=== PATIENT | male | born 1965 | race Caucasian/White ===

== ENCOUNTER → 2019-09-06 10:15 | Outpatient (BNVA) | payer MEDICARE, MEDICAID, SELFPAY | PROVIDERS: Family Provider Nurse Practitioner Family; PCP Nurse Practitioner Family; Visit Provider Nurse Practitioner Family | DX: E11.9 Type 2 diabetes mellitus without complications (principal); E78.5 Hyperlipidemia, unspecified; E03.9 Hypothyroidism, unspecified; I25.10 Atherosclerotic heart disease of native coronary artery without angina pectoris; I10 Essential (primary) hypertension; K21.9 Gastro-esophageal reflux disease without esophagitis; J30.89 Other allergic rhinitis; F41.9 Anxiety disorder, unspecified; M19.90 Unspecified osteoarthritis, unspecified site; F32.9 Major depressive disorder, single episode, unspecified; F51.05 Insomnia due to other mental disorder; R25.2 Cramp and spasm; F17.200 Nicotine dependence, unspecified, uncomplicated | CPT/HCPCS: 80053; 80061; 83036; 84443; 85025 ==

== ENCOUNTER → 2020-02-01 11:29 | Outpatient (BNVA) | payer MEDICARE, MEDICAID, SELFPAY | PROVIDERS: Family Provider Nurse Practitioner Family; PCP Nurse Practitioner Family; Visit Provider Nurse Practitioner Family | DX: M19.90 Unspecified osteoarthritis, unspecified site (principal); E11.9 Type 2 diabetes mellitus without complications; I10 Essential (primary) hypertension | CPT/HCPCS: 80053; 80061; 83036; 84443; 85025 ==

== ENCOUNTER → 2020-08-29 09:20 | Outpatient (BNVA) | payer MEDICARE, MEDICAID, SELFPAY | PROVIDERS: Family Provider Nurse Practitioner Family; PCP Nurse Practitioner Family; Visit Provider Nurse Practitioner Family | DX: E11.9 Type 2 diabetes mellitus without complications (principal); E78.5 Hyperlipidemia, unspecified | CPT/HCPCS: 80053; 80061; 83036; 84443; 85025 ==

== ENCOUNTER → 2020-11-30 08:13 | Outpatient (BNVA) | payer MEDICARE, MEDICAID, SELFPAY | PROVIDERS: Family Provider Nurse Practitioner Family; PCP Nurse Practitioner Family; Visit Provider Nurse Practitioner Family | DX: E11.9 Type 2 diabetes mellitus without complications (principal); E03.9 Hypothyroidism, unspecified; E78.5 Hyperlipidemia, unspecified | CPT/HCPCS: 80053; 80061; 83036; 83721; 84443; 85025 ==

== ENCOUNTER → 2021-04-18 11:08 | Outpatient (BNVA) | payer MEDICARE, MEDICAID, SELFPAY | PROVIDERS: Family Provider Nurse Practitioner Family; PCP Nurse Practitioner Family; Visit Provider Nurse Practitioner Family | DX: E03.9 Hypothyroidism, unspecified (principal); E11.9 Type 2 diabetes mellitus without complications; F51.05 Insomnia due to other mental disorder | CPT/HCPCS: 80053; 80061; 83036; 84443; 85025 ==

== ENCOUNTER 2021-04-21 11:56 | Emergency (ER) | payer MEDICARE, MEDICAID, SELFPAY ==
--- NOTE | 2021-04-21 12:44 | XRR_ITS ---
PROCEDURE INFORMATION: Exam: XR Right Shoulder Exam date and time: 04/21/2021 12:44 PM Age: 55 years old Clinical indication: Pain; Right; Prior surgery; Surgery date: 6+ months; Surgery type: Pins in RT. Shoulder; Additional info: Injury TECHNIQUE: Imaging protocol: XR Right shoulder. Views: 2 or more views. COMPARISON: CR Chest 2 views* [id number] 06/12/2017 10:52 AM FINDINGS: Bones/joints: No acute findings. Fixation pins proximal right humeral shaft. Normal appearance of the joint space. Soft tissues: Normal. XR/XR shoulder RT min 2V* [id number] IMPRESSION: No acute findings. Right proximal humeral pins.
[2021-04-21 12:56] VITALS: BP 128/86; PULSE 74; RESP 16; TEMP 36.8; O2SAT 96
--- NOTE | 2021-04-21 13:04 | W.ED.FALL ---
HPI - Fall General: Chief Complaint: Fall Stated Complaint: Injury to Rgt Shoulder from fall Time Seen by Provider: 04/21/21 13:04 Source: patient Mode of arrival: ambulatory Limitations: no limitations History of Present Illness: HPI Narrative: Patient is a nice 55-year-old male who presents to ED today for evaluation of a right shoulder injury that he sustained just prior to arrival after he was trying to load some goats and accidentally tripped over some wiring. He states he landed directly onto his right shoulder. He states he has had previous surgery on the shoulder 45 years ago. Pain is exacerbated with any form of movement. He denies numbness, tingling, loss of sensation to his extremity. He is not complaining of chest pain or abdominal pain. No difficulty breathing or shortness of breath. He denies striking his head or LOC. No neck or back pain. MD complaint: fall Onset (ago): hour(s) Fall from: standing Fall witnessed: no Place fall occurred: home Loss of consciousness: None Prolonged down time: no Symptoms prior to fall: none Context: tripped/slipped Location of injury - extremities: Right: shoulder Severity: moderate Associated symptoms-after fall: Denies abdominal pain, chest pain, confusion, difficulty walking, headache(s), lightheadedness or neck pain Review of Systems Eyes: Denies: change in vision or blurry vision Card: Denies: chest pain, lightheadedness, syncope or pre-syncope Resp: Denies: dyspnea or pain on inspiration GI: Denies: abdominal pain, nausea or vomiting Musc: Reports: joint pain (R shoulder) and limited range of motion (R shoulder); Denies: neck pain, back pain, extremity pain, extremity swelling or joint swelling Skin/Breast: Denies: new lesions Neuro: Denies: headache(s), numbness in extremities, weakness in extremities, sensory changes, lack of coordination, difficulty walking, frequent falls, dizziness, confusion or Slurred speech present PFSH ED PFSH: Medical History Anxiety and depression Atherosclerotic coronary vascular disease COPD (chronic obstructive pulmonary disease) Diabetes mellitus Dyslipidemia Encounter for counseling for care management of patient with chronic conditions and complex health needs using nurse-based model Environmental and seasonal allergies Essential hypertension GERD (gastroesophageal reflux disease) Hypothyroid Insomnia due to mental condition Leg cramps Osteoarthritis, chronic Smoker Social History (System 12/21/20 @ 14:38 by Maddi Sawyer Smoking and tobacco status: current every day smoker cigarettes Packs smoked per day: 3 Second hand smoke exposure: Yes Smoking risk assessment/counseling performed?: Yes Alcohol intake: never Desire information about alcohol rehabilitation?: No Counseling given: No Desire information about substance/drug rehabilitation?: No Counseling given: No Adopted: No Caregiver/support person: No Lives independently: Yes Household members: spouse Housing: House Marital status: service: No History of recent travel: No Current gender identity: Male Physical Exam Const: COMMON NORMALS: no acute distress, patient oriented x3, no limitations and alert GENERAL APPEARANCE: cooperative NUTRITIONAL APPEARANCE: obese ORIENTATION/CONSCIOUSNESS: Yes awake, Yes oriented to person, Yes oriented to place and Yes oriented to time HENMT: COMMON NORMALS: normocephalic and atraumatic HEAD & SCALP: normocephalic and atraumatic Neck/C-Spine: COMMON NORMALS: full ROM CERVICAL SPINE: Yes cervical ROM normal, No pain with cervical ROM, No Cervical spine tenderness, No step off deformity and No Paracervical muscle tenderness Chest: COMMONS NORMALS: normal inspection of the chest and normal palpation of entire chest wall Resp: COMMON NORMALS: normal respiratory effort and clear to auscultation bilaterally AUSCULTATION: clear to auscultation bilaterally Cardio: COMMON NORMALS: regular rate and regular rhythm RATE: regular rate RHYTHM: regular rhythm GI: COMMON NORMALS: Normal to inspection, nondistended, normoactive bowel sounds present, Soft to palpation, non-tender, No hepatosplenomegaly present and no masses PALPATION: Yes Soft to palpation and Yes No hepatosplenomegaly present Back/Pelvis: COMMON NORMALS: thoracic and lumbar spine normal to inspection, no thoracic nor lumbar tenderness and thoraco-lumbar ROM normal Extremity: COMMON NORMALS: normal to inspection and capillary refill normal GENERAL: Yes normal exam except as noted RIGHT UPPER EXTREMITY: Yes shoulder joint (TTP anterior humeral head) Right shoulder: Yes Right shoulder joint ROM exam (severely limited secondary to discomfort) and Yes Right shoulder joint neurovascular exam (normal) Neuro: LORNE COMA SCALE: document GCS findings [place] coma scale eye opening: Spontaneous [place] coma scale verbal response: Orientated [place] coma scale motor response: Obey commands [place] coma scale total score: 15 COMMON NORMALS: patient oriented x3, CN's II-XII intact bilaterally, moves all extremities, no focal motor deficits, no sensory deficits noted and gait normal SENSORIUM/ORIENTATION: Yes alert, Yes oriented to person, Yes oriented to place and Yes oriented to time Skin: COMMON NORMALS: no rashes or lesions noted GENERAL SKIN EXAM: no rashes or lesions noted TRAUMA: no lacerations or abrasions Course Vital Signs: Vital signs: Vital Signs Temperature 98.3 F 04/21/21 12:56 Pulse Rate 68 04/21/21 15:53 Respiratory Rate 16 04/21/21 15:53 Blood Pressure 117/80 04/21/21 15:53 Pulse Oximetry 94 04/21/21 15:53 MDM - Fall MDM Narrative: Medical decision making narrative: XR I felt was suspicious for posterior dislocation given light bulb appearance of proximal humerus. I spoke to Dr. Brunner and Dr. Lunsford who felt it was normal. I also spoke to Dr. Fierro with [facility] who assured me that this is most likely secondary to interal rotation positioning but stated his Y view and axillary view showed patient in joint. Patient will be discharged home with sling with plan for passive ROM and follow up with PCP in the next week for continued pain. Return to ED precautions given. Imaging Data^: XR R shoulder: Radiologist's impression: [address] [id number] ReportSigned Patient: Sahil Jarquin #: [id number]: 1965Acct#:[id number]/Sex: 55 / MADM Date: 04/21/21Loc: ERRoom/Bed:Attending Dr: Ordering Provider/Ordering MD: Gracy Colindres Date of Service: 04/21/21 Procedure(s): XR shoulder RT min 2V* [id number] Accession Number(s): [id number] Report Number: [id number] PROCEDURE INFORMATION: Exam: XR Right Shoulder Exam date and time: 04/21/2021 12:44 PM Age: 55 years old Clinical indication: Pain; Right; Prior surgery; Surgery date: 6+ months; Surgery type: Pins in RT. Shoulder; Additional info: Injury TECHNIQUE: Imaging protocol: XR Right shoulder. Views: 2 or more views. COMPARISON: CR Chest 2 views* [id number] 06/12/2017 10:52 AM FINDINGS: Bones/joints: No acute findings. Fixation pins proximal right humeral shaft. Normal appearance of the joint space. Soft tissues: Normal. XR/XR shoulder RT min 2V* [id number] IMPRESSION: No acute findings. Right proximal humeral pins. Dictated By:Víctor Beltre MDSigned By:Víctor Beltre MDSigned Date/Time:04/21/21 1451DD/ 1449 XR R shoulder axillary view: Radiologist's impression: [address] [address] XRay Report Signed Patient: Sahil Jarquin Unit #: [id number] : 1965 Age/Sex: 55 / M ADM Date: 04/21/21 Loc: ER Room/Bed: Attending Dr: Ordering Provider/Ordering MD: Gracy Colindres Date of Service: 04/21/21 Procedure(s): XR shoulder RT 1V 98312 Accession Number(s): [id number] Report Number: [id number] PROCEDURE INFORMATION: Exam: XR Right Shoulder Exam date and time: 04/21/2021 2:31 PM Age: 55 years old Clinical indication: Pain; Shoulder; Right; Prior surgery; Surgery date: 6+ months; Additional info: Injury, axillary view looking for dislocation TECHNIQUE: Imaging protocol: XR Right shoulder. Views: 1 view. COMPARISON: CR (CHEST, ) 04/21/2021 1:08 PM FINDINGS: Bones/joints: No evidence of fracture or dislocation. Approximately humeral fixation pins again noted. Mild glenohumeral joint space narrowing. Soft tissues: Normal. XR/XR shoulder RT 1V 48817 IMPRESSION: Negative for dislocation. Dictated By: Rico Fierro DO Signed By: Rico Fierro DO Signed Date/Time: 04/21/21 1525 DD/ 1523 Discharge Plan Discharge Patient Disposition: Home Clinical Impression: Injury of right shoulder Qualifiers: Encounter type: initial encounter Qualified Code(s): S49.91XA - Unspecified injury of right shoulder and upper arm, initial encounter Condition: Stable Prescriptions: New ibuprofen 800 mg tablet 800 mg PO Q8H PRN (Reason: pain) Qty: 20 RF: 0 hydrocodone-acetaminophen 5-325 mg tablet 1 tab PO Q6H PRN (Reason: pain) Qty: 14 RF: 0 No Action simvastatin 80 mg tablet 80 mg PO DAILY 30 Days Qty: 30 RF: 2 Jardiance 25 mg tablet 25 mg PO QAM 30 Days Qty: 30 RF: 2 omega-3 fatty acids [Fish Oil Concentrate] 1,000 mg capsule 1,000 mg PO BID 30 Days Qty: 60 RF: 2 aspirin [Adult Low Dose Aspirin] 81 mg tablet,delayed release (DR/EC) 81 mg PO DAILY RF: 0 celecoxib [Celebrex] 100 mg capsule 100 mg PO BID 30 Days Qty: 60 RF: 5 cetirizine [Zyrtec] 10 mg tablet 10 mg PO DAILY 30 Days Qty: 30 RF: 5 citalopram [Celexa] 40 mg tablet 40 mg PO DAILY 30 Days Qty: 30 RF: 5 clopidogrel 75 mg tablet 75 mg PO DAILY 30 Days Qty: 30 RF: 5 furosemide 20 mg tablet 20 mg PO DAILY 30 Days Qty: 30 RF: 5 Hold Instructions: Home Medication placed on hold at Doctor's office levothyroxine [Synthroid] 75 mcg tablet 75 mcg PO DAILY 30 Days Qty: 30 RF: 5 metoprolol tartrate 25 mg tablet 25 mg PO DAILY 30 Days Qty: 30 RF: 5 nitroglycerin [Nitrostat] 0.4 mg tablet, sublingual 0.4 mg SUBLINGUAL DIRECTED PRN (Reason: chest pain) 30 Days Qty: 1 RF: 5 omeprazole 20 mg capsule,delayed release(DR/EC) 20 mg PO DAILY 30 Days Qty: 30 RF: 5 potassium chloride 10 mEq capsule, extended release 10 meq PO DAILY 30 Days Qty: 30 RF: 5 Ambien 10 mg tablet 10 mg PO BEDTIME RF: 0 Discharge Orders: Discharge ED (Routine); Ordered 04/21/21 Ordered By: Gracy Colindres Referrals: Shonna Glaser FNP-C [Primary Care Provider] - Patient Instructions: Opioid Safety Activity Restrictions/Additional Instructions: [facility] is committed to fighting the nationwide opiate epidemic. We are providing ALL patients with information regarding opiate safety. If you received opiate pain medication during your stay or if you received a prescription for opiate pain medication-please review this handout. If not, you may disregard. Thank you. As we discussed you may stay in sling for 24 to 48 hours then please begin passive range of motion of the shoulder. Please follow-up with primary care next week if possible for reevaluation. Coding Level of Care Code ED Armament Aircraft Mechanic for Augustus Fwd Exam Comprehensive
[2021-04-21] MEDS: ketorolac 60 mg/2 mL INJ IM (13:27)
[2021-04-21 13:37] VITALS: O2SAT 92
[2021-04-21 13:38] VITALS: BP 114/80; PULSE 74; RESP 20; O2SAT 94
[2021-04-21 14:00] VITALS: BP 114/80; PULSE 71; RESP 12; O2SAT 96
--- NOTE | 2021-04-21 14:31 | XRR_ITS ---
PROCEDURE INFORMATION: Exam: XR Right Shoulder Exam date and time: 04/21/2021 2:31 PM Age: 55 years old Clinical indication: Pain; Shoulder; Right; Prior surgery; Surgery date: 6+ months; Additional info: Injury, axillary view looking for dislocation TECHNIQUE: Imaging protocol: XR Right shoulder. Views: 1 view. COMPARISON: CR (CHEST, ) 04/21/2021 1:08 PM FINDINGS: Bones/joints: No evidence of fracture or dislocation. Approximately humeral fixation pins again noted. Mild glenohumeral joint space narrowing. Soft tissues: Normal. XR/XR shoulder RT 1V [id number] IMPRESSION: Negative for dislocation.
[2021-04-21 15:00] VITALS: BP 102/72
[2021-04-21 15:53] VITALS: BP 117/80; PULSE 68; RESP 16; O2SAT 94
== END 2021-04-21 16:04 | disposition home or self-care (01) ==
PROVIDERS: Emergency Provider Physician Assistant; PCP Nurse Practitioner Family
DX: S49.91XA Unspecified injury of right shoulder and upper arm, initial encounter (principal); Z79.82 Long term (current) use of aspirin; Z79.02 Long term (current) use of antithrombotics/antiplatelets; J44.9 Chronic obstructive pulmonary disease, unspecified; E11.9 Type 2 diabetes mellitus without complications; E78.5 Hyperlipidemia, unspecified; I10 Essential (primary) hypertension; F17.210 Nicotine dependence, cigarettes, uncomplicated; W18.09XA Striking against other object with subsequent fall, initial encounter
CPT/HCPCS: 73020; 73030; 96372; 99283; J1885

== ENCOUNTER 2021-07-11 11:34 | Emergency (ER) | payer MEDICARE, MEDICAID, SELFPAY ==
[2021-07-11 11:54] VITALS: BP 134/88; PULSE 92; RESP 19; TEMP 37.1; O2SAT 92; BMI 36.9
== END 2021-07-11 12:24 | disposition left against medical advice (07) ==
LOC: ER 11:37
PROVIDERS: Emergency Provider Family Medicine; PCP Nurse Practitioner Family
DX: Z53.21 Procedure and treatment not carried out due to patient leaving prior to being seen by health care provider (principal)
CPT/HCPCS: 87635

== ENCOUNTER → 2021-11-07 09:45 | Outpatient (BNVA) | payer MEDICARE, MEDICAID, SELFPAY | PROVIDERS: PCP Nurse Practitioner Family; Visit Provider Nurse Practitioner Family | DX: E11.9 Type 2 diabetes mellitus without complications (principal); E78.5 Hyperlipidemia, unspecified; E03.9 Hypothyroidism, unspecified | CPT/HCPCS: 80053; 80061; 83036; 84443; 85025 ==

== ENCOUNTER → 2022-02-12 13:06 | Outpatient (BNVA) | payer MEDICARE, MEDICAID, SELFPAY | PROVIDERS: PCP Nurse Practitioner Family; Visit Provider Nurse Practitioner Family | DX: E03.9 Hypothyroidism, unspecified (principal); E11.65 Type 2 diabetes mellitus with hyperglycemia; E11.9 Type 2 diabetes mellitus without complications; I10 Essential (primary) hypertension; K21.9 Gastro-esophageal reflux disease without esophagitis; E78.5 Hyperlipidemia, unspecified; I25.10 Atherosclerotic heart disease of native coronary artery without angina pectoris; F41.9 Anxiety disorder, unspecified; M19.90 Unspecified osteoarthritis, unspecified site; J30.89 Other allergic rhinitis; Z12.5 Encounter for screening for malignant neoplasm of prostate; J44.9 Chronic obstructive pulmonary disease, unspecified; F32.9 Major depressive disorder, single episode, unspecified; F51.05 Insomnia due to other mental disorder; F17.200 Nicotine dependence, unspecified, uncomplicated | CPT/HCPCS: 80053; 80061; 83036; 84443; 85025; G0103 ==

== ENCOUNTER 2022-03-05 15:12 | Inpatient (IN) | payer MEDICARE, MEDICAID, SELFPAY ==
[2022-03-05] VITALS (8 sets, daily range): BP systolic 109–177; BP diastolic 71–109; PULSE 89–135; RESP 19–45; TEMP 36.9–37; O2SAT 88–93; BMI 32.5
--- NOTE | 2022-03-05 15:33 | ECG_ITS ---
[facility] Test Date: 2022-03-05 Pat Name: Sahil Jarquin Department: Room: Gender: Male Director Project Management: : 1965 Requested By: Vin Rivas Order Number: [id number] Yaya MD: Melanie Witt M.D. Measurements Intervals Union Rate: 132 P: 248 AL: 120 QRS: -56 QRSD: 130 T: 93 QT: 339 QTc: 503 Interpretive Statements Possible atrial tachycardia LEFT AXIS DEVIATION [QRS AXIS < -30] ANTEROSEPTAL MYOCARDIAL INFARCTION , OF INDETERMINATE AGE [40+ ms Q WAVE IN V1-V4] MODERATE T-WAVE ABNORMALITY, CONSIDER LATERAL ISCHEMIA [-0.1+ mV T WAVE IN I/aVL/V5/V6] Compared to ECG 04/28/2018 17:12:03 Junctional tachycardia now present Myocardial infarct finding now present T-wave abnormality now present Possible ischemia now present Sinus rhythm no longer present First degree AV block no longer present Left bundle-branch block no longer present Electronically Signed On 03-05-2022 21:16:37 CDT by Melanie Witt M.D. [email or web address]
--- NOTE | 2022-03-05 15:33 | XRR_ITS ---
PROCEDURE INFORMATION: Exam: XR Chest Exam date and time: 03/05/2022 4:07 PM Age: 56 years old Clinical indication: Dyspnea and shortness of breath; Other: Sharp pain with deep inspiration; Prior surgery; Surgery type: Heart stents; Patient HX: Moderate respiratory distress. He has a known history of copd and known history of coronary disease. He states the last 3 days he has been having increasing difficulty breathing. ; Additional info: Shortness of breath/chest pain TECHNIQUE: Imaging protocol: Radiologic exam of the chest. Views: 1 view. COMPARISON: CR Chest 2 views* [id number] 06/12/2017 10:52 AM FINDINGS: Lungs: Ill-defined bibasilar opacities. Pleural spaces: Bilateral small volume pleural effusions. No pneumothorax. Heart/Mediastinum: Unremarkable. No cardiomegaly. Bones/joints: Unremarkable. XR/XR chest 1V portable [id number] IMPRESSION: Bilateral small volume pleural effusions with ill-defined bibasilar opacities, most likely reflecting corresponding atelectasis.
--- NOTE | 2022-03-05 15:36 | ED_ITS ---
HPI - Chest Pain General: Chief Complaint: ER Hold Stated Complaint: RESP DISTRESS Time Seen by Provider: 03/05/22 15:27 Source: patient Mode of arrival: ambulatory History of Present Illness: 56-year-old male presents emergency room in moderate respiratory distress. He has a known history of COPD and known history of coronary disease. He states the last 3 days he has been having increasing difficulty breathing. Specifically states he gets sharp pain with deep inspiration. Patient has a known coronary artery disease. He has previously had several stents. He had an angiogram about 3-1/2 years ago that did not show any severe disease and there is no intervention. He had a bundle branch block at that time he presents now in a junctional rhythm with tachycardia. He is now requiring 5 to 6 L by nasal cannula. MD complaint: chest pain Pertinent past history: coronary artery disease Onset (ago): day(s) Timing of current episode: constant Prior episodes: Yes Onset: during rest Pain location: right chest Pain radiation: none Severity: moderate Quality: aching and heaviness Relieving factors: other (Oxygen, nebulizer) Exacerbating factors: nothing Associated symptoms: Reports dyspnea; Deny abdominal pain, diaphoresis, fever(s), leg edema, nausea, sense of impending doom, syncope or vomiting Treatment prior to arrival: other (Nebulizer) Review of Systems Const: Denies: fever(s), chills, fatigue, malaise or diaphoresis ENMT: Denies: throat pain, ear or mastoid pain, nasal discharge or nasal congestion Card: Reports: chest pain; Denies: syncope Resp: Reports: dyspnea, productive cough and wheezing GI: Denies: abdominal pain, nausea or vomiting : Denies: flank pain, difficulty urinating, dysuria, urinary frequency or urinary urgency Musc: Denies: neck pain or back pain Skin/Breast: Denies: rash or pruritus PFSH ED PFSH: Medical History Acute and chronic respiratory failure with hypoxia Anxiety and depression Atherosclerotic coronary vascular disease COPD (chronic obstructive pulmonary disease) Diabetes mellitus Dyslipidemia Encounter for counseling for care management of patient with chronic conditions and complex health needs using nurse-based model Environmental and seasonal allergies Essential hypertension GERD (gastroesophageal reflux disease) Hyperglycemia Hypothyroid Insomnia due to mental condition Leg cramps Osteoarthritis, chronic Pleuritic chest pain Pneumonia Sepsis Smoker Surgical History H/O knee surgery S/P coronary artery stent placement Social History Smoking and tobacco status: current every day smoker cigarettes Packs smoked per day: 3 Second hand smoke exposure: Yes Smoking risk assessment/counseling performed?: Yes Alcohol intake: never Desire information about alcohol rehabilitation?: No Counseling given: No Desire information about substance/drug rehabilitation?: No Counseling given: No Adopted: No Caregiver/support person: No Lives independently: Yes Household members: spouse Housing: House Marital status: service: No History of recent travel: No Current gender identity: Male Physical Exam Const: COMMON NORMALS: no acute distress GENERAL APPEARANCE: cooperative and comfortable ORIENTATION/CONSCIOUSNESS: Yes awake, Yes oriented to person, Yes oriented to place and Yes oriented to time HENMT: COMMON NORMALS: normocephalic and atraumatic HEAD & SCALP: normocephalic and atraumatic Resp: AUSCULTATION: rhonchi and wheezes Cardio: RATE: tachycardic GI: COMMON NORMALS: Soft to palpation and No hepatosplenomegaly present AUSCULTATION: Yes normoactive bowel sounds PALPATION: Yes Soft to palpation, No Tenderness to palpation present (GI), No Guarding due to palpation present (GI) and Yes No hepatosplenomegaly present Extremity: COMMON NORMALS: normal to inspection, capillary refill normal, no clubbing, cyanosis or edema, no calf tenderness and no pedal edema Neuro: SENSORIUM/ORIENTATION: Yes oriented to person, Yes oriented to place and Yes oriented to time Skin: COMMON NORMALS: no rashes or lesions noted GENERAL SKIN EXAM: no rashes or lesions noted Course Vital Signs: Vital signs: Vital Signs Temperature 97.7 F 03/07/22 13:35 Pulse Rate 68 03/07/22 13:35 Respiratory Rate 17 03/07/22 13:35 Blood Pressure 114/76 03/07/22 13:35 Pulse Oximetry 94 03/07/22 13:35 Oxygen Delivery Me thod 03/07/22 12:00 Oxygen Flow Rate 4 03/06/22 20:00 MDM - Chest Pain Medical Decision Making Patient has exacerbation COPD with worsening hypoxia. He is tachycardia secondary to COPD exacerbation his blood pressure is adequate I did not give him a sepsis bolus at this time. Clinically I do think he has a pneumonia with a small pleural effusion. And his chest pain is probably pleuritic in nature discussed with hospitalist orders written Medical Records I reviewed the patient's medical records. Lab Data I reviewed the patient's lab results. : 03/07/22 03:45 03/07/22 03:45 Radiology Impressions Chest X-Ray 03/05/22 15:33 IMPRESSION: Bilateral small volume pleural effusions with ill-defined bibasilar opacities, most likely reflecting corresponding atelectasis. Laboratory Results WBC 28.1 10^3/uL (4.0-10.0) H 03/05/22 15:50 RBC 5.26 10^6/uL (4.1-5.3) 03/05/22 15:50 Hgb 16.1 g/dL (11.7-16.6) 03/05/22 15:50 Hct 45.7 % (42.0-52.0) 03/05/22 15:50 MCV 86.9 fl (80-94) 03/05/22 15:50 MCH 30.6 pg (28.0-34.0) 03/05/22 15:50 MCHC 35.2 g/dL (30.0-36.0) 03/05/22 15:50 RDW 11.7 % (12.1-15.1) L 03/05/22 15:50 Plt Count 308 10^3/cmm (130-400) 03/05/22 15:50 MPV 12.1 fL (7.4-10.4) H 03/05/22 15:50 Neut % (Auto) 89.8 % 03/05/22 15:50 Lymph % (Auto) 4.7 % 03/05/22 15:50 Jack % (Auto) 4.6 % 03/05/22 15:50 Eos % (Auto) 0.0 % 03/05/22 15:50 Baso % (Auto) 0.2 % 03/05/22 15:50 Neut # (Auto) 25.26 10^3/uL (1.8-7.7) H 03/05/22 15:50 Lymph # (Auto) 1.3 10^3/uL (0.8-4.8) 03/05/22 15:50 Jack # (Auto) 1.3 10^3/uL (0.2-0.9) H 03/05/22 15:50 Eos # (Auto) 0.0 10^3/uL (0.0-0.8) 03/05/22 15:50 Baso # (Auto) 0.1 10^3/uL (0.0-0.1) 03/05/22 15:50 Nucleated RBC % (auto) 0 % 03/05/22 15:50 Nucleated RBCs # 0.0 /100WBC 03/05/22 15:50 PT 15.80 SECONDS (12.1-14.9) H 03/05/22 15:50 INR 1.23 (0.8-1.2) H 03/05/22 15:50 APTT 29.9 SECONDS (23.9-36.7) 03/05/22 15:50 Specimen Type Arterial 03/05/22 15:40 Sample Site Radial, left 03/05/22 15:40 ABG pH 7.45 (7.35-7.45) 03/05/22 15:40 ABG pCO2 28.9 mmHg (35-45) L 03/05/22 15:40 ABG pO2 74.3 mmHg (80.0-100.0) L 03/05/22 15:40 ABG HCO3 20.1 mmol/L (22-26) L 03/05/22 15:40 ABG O2 Saturation 96.1 03/05/22 15:40 ABG Base Excess -2.4 mmol/L (-2.0-2.0) L 03/05/22 15:40 Raúl Test Pos 03/05/22 15:40 A-a O2 Gradient 18.8 mmHg (5-10) H 03/05/22 15:40 Hematocrit 50.2 % (42-52) 03/05/22 15:40 Hgb O2 Saturation 94.6 % (95-100) L 03/05/22 15:40 Carboxyhemoglobin 1.6 %THgb (0.4-20.1) 03/05/22 15:40 Methemoglobin 0.0 % (0.4-1.5) L 03/05/22 15:40 Total Hemoglobin 16.4 g/dL (14-18) 03/05/22 15:40 Sodium 128.0 mmol/L (131-143) L 03/05/22 15:40 Potassium 4.2 mmol/L (3.5-5.0) 03/05/22 15:40 Glucose 479.0 mg/dL (70-115) H 03/05/22 15:40 Ionized Calcium 1.2 mmol/L (1.1-1.4) 03/05/22 15:40 O2 Delivery Device Nc 03/05/22 15:40 O2 Liters/Min 4.0 % 03/05/22 15:40 FiO2 36.0 % 03/05/22 15:40 Singer Back Tender ID Monro 03/05/22 15:40 Sodium 127 mmol/L (136-145) L 03/05/22 15:50 Potassium 4.1 mmol/L (3.5-5.1) 03/05/22 15:50 Chloride 90 mmol/L (98-107) L 03/05/22 15:50 Carbon Dioxide 19 mmol/L (22-29) L 03/05/22 15:50 Anion Gap 22.1 (5-19) H 03/05/22 15:50 BUN 11 mg/dL (6-20) 03/05/22 15:50 Creatinine 0.6 mg/dL (0.7-1.2) L 03/05/22 15:50 GFR Calculation 139.4 mL/min (90-130) H 03/05/22 15:50 Glucose 505 mg/dL (65-115) H* 03/05/22 15:50 POC Glucose 517 mg/dL (70-110) H* 03/05/22 19:12 Calculated Osmolality 286 mOsm/kg (285-295) 03/05/22 15:50 Lactic Acid 2.3 mmol/L (0.5-2.2) H 03/05/22 15:30 Lactic Acid (Sepsis) 2.0 mmol/L (0.5-2.2) 03/05/22 18:06 Lactate 2.0 mmol/L (0.5-2.2) 03/05/22 19:29 Calcium 9.1 mg/dL (8.5-10.5) 03/05/22 15:50 Total Bilirubin 1.1 mg/dL (0.15-1.2) 03/05/22 15:50 AST 10 U/L (0-40) 03/05/22 15:50 ALT 12 U/L (0-41) 03/05/22 15:50 Alkaline Phosphatase 111 IU/L (40-130) 03/05/22 15:50 Creatine Kinase 71 U/L (39-308) 03/05/22 15:50 Troponin T Baseline 7 ng/L (0-15) 03/05/22 15:50 Troponin T 120 Minute 7.92 ng/L (0-15) 03/05/22 17:49 Delta Troponin T 0.92 ABS# (0-10) 03/05/22 17:49 Troponin T Hi Sens 6Hr 6.00 ng/L (0-15) 03/05/22 22:20 Troponin T Hi Sens 6Hr Delta -1.00 ng/L (0-12) L 03/05/22 22:20 Total Protein 7.2 g/dL (6.6-8.7) 03/05/22 15:50 Albumin 3.0 g/dL (3.5-5.2) L 03/05/22 15:50 Globulin 4.2 g/dL (1.3-4.6) 03/05/22 15:50 Procalcitonin 6.50 ng/mL (0-0.5) H 03/05/22 18:43 Urine Color Yellow (Yellow) 03/05/22 17:46 Urine Appearance Clear (CLEAR) 03/05/22 17:46 Urine pH 5 (5-7) 03/05/22 17:46 Ur Specific [place] 1.015 (1.005-1.030) 03/05/22 17:46 Urine Protein Neg (Negative) 03/05/22 17:46 Urine Glucose (UA) 4+ (Normal) H 03/05/22 17:46 Urine Ketones 1+ (Negative) H 03/05/22 17:46 Urine Blood Neg (Negative) 03/05/22 17:46 Urine Nitrate Negative (Negative) 03/05/22 17:46 Urine Bilirubin Neg (Negative) 03/05/22 17:46 Urine Urobilinogen Norm mg/dL (Negative) 03/05/22 17:46 Ur Leukocyte Esterase Negative (Negative) 03/05/22 17:46 Serum Ketones Negative (Negative) 03/05/22 15:30 Discharge Plan Discharge Patient Disposition: Admitted As Inpatient Admit Provider: Macy Schneider Clinical Impression: Acute exacerbation of chronic obstructive pulmonary disease, Pneumonia, Acute and chronic respiratory failure with hypoxia Condition: Stable Discharge Diet: Diabetic Coding Level of Care Code ED Inspector Heating And Refrigeration for Augustus Calvillo
[2022-03-05 15:42] LABS: Glucose Point of Care 462 mg/dL (70-110)
[2022-03-05 15:52] LABS: ABG PCO2 28.9 mmHg (35-45); ABG PH Result 7.45 (7.35-7.45); Alveolar-Arterial Oxygen Gradi 18.8 mmHg (5-10); Arterial Blood Gas Hematocrit 50.2 % (42-52); Base Excess ABG -2.4 mmol/L (-2.0-2.0); Blood Gas Allen Test Pos; Blood Gas Operator Identificat MONRO; Blood Gas Sample Site Radial, left; Blood Gas Sample Type Arterial; Carboxyhemoglobin 1.6 %THgb (0.4-20.1); HCO3 ABG 20.1 mmol/L (22-26); HGB O2 Sat 94.6 % (95-100); Ionized Calcium Level - ABG 1.2 mmol/L (1.1-1.4); Oxygen Device NC; Oxygen Saturation ABG 96.1; PO2 ABG 74.3 mmHg (80.0-100.0); Potassium Level - ABG 4.2 mmol/L (3.5-5.0); Total Hemoglobin 16.4 g/dL (14-18)
[2022-03-05] MEDS: nitroglycerin 1 gm/inch oint Pkt 1 INCH TOPICAL (15:56)
[2022-03-05 16:14] LABS: Basophils # 0.1 10^3/uL (0.0-0.1); Basophils % 0.2 %; Hematocrit 45.7 % (42.0-52.0); Hemoglobin 16.1 g/dL (11.7-16.6); Lymphocytes # 1.3 10^3/uL (0.8-4.8); Lymphocytes % 4.7 %; Mean Corpuscular HGB Conc 35.2 g/dL (30.0-36.0); Mean Corpuscular Hemoglobin 30.6 pg (28.0-34.0); Mean Corpuscular Volume 86.9 fl (80-94); Mean Platelet Volume 12.1 fL (7.4-10.4); Monocytes # 1.3 10^3/uL (0.2-0.9); Monocytes % 4.6 %; Neutrophils # 25.26 10^3/uL (1.8-7.7); Neutrophils % 89.8 %; Nucleated Red Blood Cells % 0 %; Platelet Count 308 10^3/cmm (130-400); Red Blood Count 5.26 10^6/uL (4.1-5.3); Red Cell Distribution Width 11.7 % (12.1-15.1); White Blood Count 28.1 10^3/uL (4.0-10.0)
[2022-03-05 16:19] LABS: INR 1.23 (0.8-1.2)
--- NOTE | 2022-03-05 16:19 | PC.NURSE ---
NITRO PASTE REMOVED PER VERBAL ORDER FROM PHYSICIAN. PHYSICIAN INSTRUCTED TO ADMINISTER METOPROLOL AFTER PT BP INCREASES
[2022-03-05 16:20] LABS: Partial Thromboplastin Time 29.9 SECONDS (23.9-36.7)
[2022-03-05 16:27] LABS: Alanine Aminotransferase 12 U/L (0-41); Alkaline Phosphatase 111 IU/L (40-130); Anion Gap 22.1 (5-19); Aspartate Amino Transferase 10 U/L (0-40); Blood Urea Nitrogen 11 mg/dL (6-20); Calcium 9.1 mg/dL (8.5-10.5); Carbon Dioxide 19 mmol/L (22-29); Chloride 90 mmol/L (98-107); Creatine Phosphokinase 71 U/L (39-308); Globulin 4.2 g/dL (1.3-4.6); Glomerular Filtration Rate 139.4 mL/min (90-130); Osmolality Calculated 286 mOsm/kg (285-295); Potassium 4.1 mmol/L (3.5-5.1); Sodium 127 mmol/L (136-145); Total Bilirubin 1.1 mg/dL (0.15-1.2); Total Protein 7.2 g/dL (6.6-8.7)
[2022-03-05 16:28] LABS: Lactic Sepsis W/Reflex 2.3 mmol/L (0.5-2.2)
[2022-03-05 16:29] LABS: Glucose 505 mg/dL (65-115)
[2022-03-05] MEDS: metoprolol tartrate 1 mg/1 mL SDV 5 mL 5 MG IVP (16:37)
[2022-03-05] MEDS: piperacillin-tazobactam 3.375 GM in sodium chloride 0.9% (plus) 50 ML IV (16:37)
--- NOTE | 2022-03-05 16:37 | P.HP_ITS ---
Providers/Chief Complaint Primary Care Provider: JACQUELIN Gordon Chief Complaint: RESP DISTRESS History of Present Illness Sahil Jarquin is a 56 year old male who carries history of COPD, uses 3 L at baseline, coronary disease multiple stents, presented with chief complaint of worsening shortness of breath. Patient is stating that her his symptoms started on Friday with shortness of breath associated with pleuritic chest pain. Every time he would take a deep breath he would experience right-sided chest discomfort. He has not noticed any fever no COVID-related symptoms. No diarrhea. He has been bringing whitish sputum with his cough as well. He smoking 3 packs of cigarettes on daily basis. No recent diarrhea. He lives with his family at home. His is vaccinated COVID-19 however he is not. In the ER he was diagnosed with right-sided community-acquired pneumonia currently he is on 4 L of nasal cannula, I have given him anti-inflammatories IV medication ketorolac for his pleuritic chest pain, Patient meets sepsis criteria, tachypnea, tachycardia, worsening of hypoxia, leukocytosis Patient is hypernatremic related to hyperglycemia no signs of DKA I will give him septic bolus Initially there was some concern for junctional tachycardia however Dr. Nayak braided band assembler recommended treatment for pneumonia and AV mc blocking agent if needed, ER physician spoke with Dr. Nayak Review of Systems Const: Reports: chills and body aches Eyes: Denies: change in vision ENMT: Denies: throat pain Card: Reports: chest pain Resp: Reports: dyspnea and productive cough GI: Denies: abdominal pain Skin/Breast: Denies: rash Neuro: Denies: headache(s) Psych: Reports: anxiety Endo: Denies: polyuria Jay/Lymph: Denies: easy bruising All/Imm: Denies: urticaria Medications/Allergies Home Medications Medication Instructions Recorded Confirmed Last Taken Type aspirin 81 mg tablet,delayed 81 mg PO BEDTIME 09/06/19 03/05/22 1 Week Ago History release (Adult Low Dose Aspirin) ~02/26/22 blood-glucose meter #1 ea 11/07/21 03/05/22 Unknown Rx albuterol sulfate 90 mcg/actuation 2 puff inhalation QID PRN 02/12/22 03/05/22 Unknown Rx aerosol inhaler (ProAir HFA) shortness of breath or wheezing #6.7 grams blood sugar diagnostic (Blood #100 ea 02/12/22 03/05/22 Unknown Rx Glucose Test) budesonide-formoterol HFA 160 2 puff inhalation BID #10.2 grams 02/12/22 03/05/22 Unknown Rx mcg-4.5 mcg/actuation aerosol inhaler (Symbicort) lancets 33 gauge (BD Ultra Fine #100 ea 02/12/22 03/05/22 Unknown Rx Lancets) celecoxib 100 mg capsule (Celebrex) 100 mg PO BEDTIME 03/05/22 03/05/22 03/04/22 History cetirizine 10 mg tablet (Zyrtec) 10 mg PO BEDTIME 03/05/22 03/05/22 03/04/22 History citalopram 40 mg tablet (Celexa) 40 mg PO BEDTIME 03/05/22 03/05/22 03/04/22 History clopidogrel 75 mg tablet 75 mg PO BEDTIME 03/05/22 03/05/22 03/04/22 History levothyroxine 75 mcg tablet 75 mcg PO BEDTIME 03/05/22 03/05/22 03/04/22 History (Synthroid) metoprolol tartrate 25 mg tablet 25 mg PO BEDTIME 03/05/22 03/05/22 03/04/22 History nitroglycerin 0.4 mg sublingual 0.4 mg sublingual Q5M PRN Chest 03/05/22 03/05/22 Unknown History tablet (Nitrostat) Pain omega-3 fatty acids 1,000 mg 1,000 mg PO BEDTIME 03/05/22 03/05/22 03/04/22 History capsule omeprazole 20 mg capsule,delayed 20 mg PO BEDTIME 03/05/22 03/05/22 03/04/22 History release potassium chloride 10 mEq 10 meq PO BEDTIME 03/05/22 03/05/22 03/04/22 History capsule,extended release semaglutide (Ozempic) 0.25 mg SUBCUT Q7D 03/05/22 03/05/22 03/03/22 History simvastatin 80 mg tablet 80 mg PO BEDTIME 03/05/22 03/05/22 03/04/22 History zolpidem 10 mg tablet 10 mg PO BEDTIME 03/05/22 03/05/22 03/04/22 History Allergies Allergy/AdvReac Type Severity Reaction Status Date / Time No Known Allergies Allergy Verified 03/05/22 16:12 PFSH Acute PFSH: Medical History Anxiety and depression Atherosclerotic coronary vascular disease COPD (chronic obstructive pulmonary disease) Diabetes mellitus Dyslipidemia Encounter for counseling for care management of patient with chronic conditions and complex health needs using nurse-based model Environmental and seasonal allergies Essential hypertension GERD (gastroesophageal reflux disease) Hypothyroid Insomnia due to mental condition Leg cramps Osteoarthritis, chronic Smoker Surgical History H/O knee surgery S/P coronary artery stent placement Social History Smoking and tobacco status: current every day smoker cigarettes Packs smoked per day: 3 Second hand smoke exposure: Yes Smoking risk assessment/counseling performed?: Yes Alcohol intake: never Desire information about alcohol rehabilitation?: No Counseling given: No Desire information about substance/drug rehabilitation?: No Counseling given: No Adopted: No Caregiver/support person: No Lives independently: Yes Household members: spouse Housing: House Marital status: service: No History of recent travel: No Current gender identity: Male Vitals/I&O/Wt Last Vital Signs Temp 98.4 F 03/05/22 15:15 Pulse 135 H 03/05/22 15:57 Resp 40 H 03/05/22 15:57 BP 134/81 03/05/22 15:57 Pulse Ox 91 03/05/22 15:57 O2 Del Method 03/05/22 15:57 O2 Flow Rate 4 03/05/22 15:57 Weight last 48 hrs Weight 99.79 kg Physical Exam Narrative: Patient is in distress, tachypneic Conversational dyspnea Currently on 4 L Has pleuritic chest pain Abdomen soft No signs of edema No sign of congestive heart failure Nonfocal neuro exam no active chest pain S1, S2 sinus tachycardia Nonfocal neuro exam Data : 03/05/22 15:50 03/05/22 15:50 A&P Assessment and plan (1) Sepsis: Status: Acute (2) Pneumonia: Status: Acute (3) Pleuritic chest pain: Status: Acute (4) Acute and chronic respiratory failure with hypoxia: Status: Acute Plan Sepsis related to community-acquired pneumonia Junctional tachycardia Acute on chronic hypoxia Pleuritic chest pain Start ceftriaxone azithromycin Budesonide DuoNeb every 4 as needed Serial troponin and EKG shelter monitor Patient has history of coronary disease continue aspirin and Plavix Patient smokes 3 packs of cigarettes For pleuritic chest pain I will give him anti-inflammatory ketorolac, monitor kidney function for sepsis I will give him septic bolus, he has received antibiotics in the ER, repeat lactic acid, sepsis related to community-acquired pneumonia Patient signs of respite distress with tachypnea, tachycardia conversational dyspnea BiPAP can be used to decrease work of breathing Lidocaine patch Patient is full code Cardiac diet DVT prophylaxis on board Attestations Medical Necessity Statement*: Anticipating more than 2 midnights in the hospital for management of sepsis, pneumonia Time Spent in Patient Care: 40 Coding Level of Care Code 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
[2022-03-05] MEDS: vancomycin 1,000 MG in sodium chloride 0.9% 250 ML 250 MG IV (17:07)
--- NOTE | 2022-03-05 17:24 | PC.NURSE ---
PT PLACED ON CONTINUOUS NIBP, SPO2, AND CM
[2022-03-05 17:30] LABS: Ketone (Acetest) Serum Negative (Negative)
--- NOTE | 2022-03-05 17:33 | ECG_ITS ---
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 Measurements Intervals [place] Rate: 106 P: 60 MI: 197 QRS: -50 QRSD: 132 T: 76 QT: 370 QTc: 492 Interpretive Statements SINUS TACHYCARDIA INTRAVENTRICULAR CONDUCTION DELAY [130+ ms QRS DURATION] INFERIOR MYOCARDIAL INFARCTION , OF INDETERMINATE AGE [40+ ms Q WAVE AND/OR ST/T ABNORMALITY IN II/aVF] ANTEROLATERAL MYOCARDIAL INFARCTION , of indeterminate age Compared to ECG 03/05/2022 15:41:52 Intraventricular conduction delay now present Junctional tachycardia no longer present Left-axis deviation no longer present T-wave abnormality no longer present Myocardial infarct finding still present Electronically Signed On 03-06-2022 6:48:55 CDT by Melanie Witt M.D. [id number]
[2022-03-05] MEDS: insulin regular-human 100 units/1 mL 10 UNIT IVP (17:42)
[2022-03-05] MEDS: ketorolac 30 mg/mL INJ 15 MG IVP (17:43)
[2022-03-05 17:49] LABS: Reflex Lactate Order REFLEX LACTIC ORDERD
[2022-03-05 18:07] LABS: Add Urine Microscopic? NO; Charge for UA Resulting for Rev
[2022-03-05 18:11] LABS: Glucose Urine UA 4+ (Normal); Ketones Urine 1+ (Negative); Protein Urine Neg (Negative); Specific Gravity, Urine 1.015 (1.005-1.030); Urine Appearance Clear (CLEAR); Urine Color Yellow (Yellow); pH Urine 5 (5-7)
[2022-03-05 18:12] LABS: Bilirubin Urine Neg (Negative); Blood Urine Neg (Negative); Leukocyte Esterase Urine Negative (Negative); Nitrate Urine Negative (Negative); Urobilinogen Urine Norm (Negative)
[2022-03-05 18:14] LABS: Troponin(5th) Baseline 7 ng/L (0-15)
[2022-03-05] MEDS: levofloxacin-dextrose 5 % 750 MG/150 ML PREMIX 100 MG IV (18:18)
[2022-03-05 18:45] LABS: Troponin 5 2HR 7.92 ng/L (0-15)
[2022-03-05 19:06] LABS: Troponin 5 2HR Delta 0.92 ABS# (0-10)
[2022-03-05 19:15] LABS: Glucose Point of Care 517 mg/dL (70-110)
[2022-03-05] MEDS: sodium chloride 0.9% 1,000 ML 999 ML IV ×2 (19:19→22:00)
--- NOTE | 2022-03-05 19:33 | PC.NURSE ---
Report from [place]. Pt resting with HOB at 45 degrees. Diaphoretic. States he has been this way since he got here. Alert and oriented. 18g IV to RAC with levaquin infusing. NO needs at this time.
--- NOTE | 2022-03-05 21:33 | ECG_ITS ---
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 Measurements Intervals [place] Rate: 89 P: 75 MD: 220 QRS: -52 QRSD: 141 T: 61 QT: 421 QTc: 513 Interpretive Statements SINUS RHYTHM WITH FIRST DEGREE AV BLOCK LEFT AXIS DEVIATION [QRS AXIS < -30] LEFT BUNDLE BRANCH BLOCK [120+ ms QRS DURATION, 80+ ms Q/S IN V1/V2, 85+ ms R IN I/aVL/V5/V6] Compared to ECG 03/05/2022 17:44:23 First degree AV block now present Left-axis deviation now present Left bundle-branch block now present Sinus tachycardia no longer present Intraventricular conduction delay no longer present Myocardial infarct finding no longer present Electronically Signed On 03-06-2022 19:51:16 CDT by Liz Nayak M.D. [id number]
[2022-03-05] MEDS: aspirin 81 mg EC Tablet PO (23:59)
[2022-03-05] MEDS: pantoprazole DR 40 mg Tablet PO (23:59)
[2022-03-05] MEDS: clopidogrel 75 mg Tablet PO (23:59)
[2022-03-05] MEDS: levothyroxine 75 mcg Tablet PO (23:59)
[2022-03-06] VITALS (18 sets, daily range): BP systolic 96–122; BP diastolic 52–75; PULSE 73–101; RESP 15–21; TEMP 36.3–36.9; O2SAT 90–95; BMI 32.5
[2022-03-06] MEDS: metoprolol tartrate 25 mg Tablet PO ×3 (00:07→20:31)
[2022-03-06] MEDS: ipratropium-albuterol 3 mL Neb INHALATION ×2 (00:35→09:23)
--- NOTE | 2022-03-06 01:45 | PC.NURSE ---
Pt moved from stretcher to hospital bed. Room cleaned up. Pt resting quietly. Denies needs at this time.
[2022-03-06 04:09] LABS: Glucose Point of Care 429 mg/dL (70-110)
[2022-03-06 06:28] LABS: Basophils % 0.1 %; Hematocrit 44.3 % (42.0-52.0); Hemoglobin 14.5 g/dL (11.7-16.6); Lymphocytes % 4.2 %; Mean Corpuscular HGB Conc 32.7 g/dL (30.0-36.0); Mean Corpuscular Hemoglobin 30.6 pg (28.0-34.0); Mean Corpuscular Volume 93.5 fl (80-94); Monocytes # 0.7 10^3/uL (0.2-0.9); Monocytes % 2.7 %; Neutrophils # 22.79 10^3/uL (1.8-7.7); Nucleated Red Blood Cells % 0 %; Platelet Count 248 10^3/cmm (130-400); Red Blood Count 4.74 10^6/uL (4.1-5.3); Red Cell Distribution Width 11.8 % (12.1-15.1); White Blood Count 24.8 10^3/uL (4.0-10.0)
[2022-03-06 08:27] LABS: Alanine Aminotransferase 11 U/L (0-41); Albumin Level 2.9 g/dL (3.5-5.2); Alkaline Phosphatase 116 IU/L (40-130); Anion Gap 23.3 (5-19); Aspartate Amino Transferase 11 U/L (0-40); Blood Urea Nitrogen 19 mg/dL (6-20); C Reactive Protein 327.3 mg/L (0.0-4.9); Calcium 9.5 mg/dL (8.5-10.5); Carbon Dioxide 19 mmol/L (22-29); Chloride 93 mmol/L (98-107); Glomerular Filtration Rate 139.4 mL/min (90-130); Glucose 393 mg/dL (65-115); Magnesium 1.9 mg/dL (1.7-2.3); Osmolality Calculated 291 mOsm/kg (285-295); Phosphorus 3.1 mg/dL (2.5-4.5); Potassium 4.3 mmol/L (3.5-5.1); Sodium 131 mmol/L (136-145); Total Bilirubin 0.6 mg/dL (0.15-1.2); Total Protein 6.9 g/dL (6.6-8.7)
[2022-03-06 09:22] LABS: Glucose Point of Care 461 mg/dL (70-110)
[2022-03-06] MEDS: budesonide 0.5 mg/2 mL Neb INHALATION (09:23)
[2022-03-06] MEDS: cefTRIAXone 1,000 MG in sodium chloride 0.9% (plus) 50 ML 100 MG IV (09:27)
[2022-03-06] MEDS: sennosides-docusate Tablet 1 TAB PO (09:27)
[2022-03-06] MEDS: azithromycin 250 mg Tablet 500 MG PO (09:27)
[2022-03-06] MEDS: insulin lispro 100 unit/1 mL SUBCUT ×6 (09:27→22:39)
--- NOTE | 2022-03-06 10:25 | PC.CHAP ---
Pastoral Care Encounter/Spiritual Assessment Type of Contact [] Declined cd storage and materials make up helper visit [] Patient/Family/Request visit [] Outpatient visit [] Follow-up visit [] Physician referral [] Code/Alert [x] Routine visit [] Staff referral [] Actively dying [] Patient sleeping [] Family support [] [] Out of room [] Palliative care [] [] Receiving care in room [] Pre-surgical visit [] Trauma [] Long length of stay [] ICU visit [] Other: Relational/Emotional Strength [x] Patient feels connected with others/family/visitors/staff [] Distress [] Loneliness/isolation [] Abandonment Spirituality of Patient [x] Person of Lakshmi [] Attends Anglican of their Lakshmi [x] Believes in Prayer [] Reads Bible or Baptist materials [] There are Spiritual issues to be addressed Security Intern Interventions x] Prayer [x] Active listening []x Non-anxious presence []x Spiritual/emotional support [] Crisis/trauma care [] Spiritual counseling [] Bereavement support [] Provided bereavement packet [] Provided Bible/devotional materials [] Provided toy/stuffed animal, coloring book to patient or family member [] Provided Communion [] Anointing/[place]ummer [] Salvation [x] Completed spiritual assessment [] Other: Impact on Illness or Injury [] Angry [] Fearful [] Anxious [] Often cries [] Exhaustion [] Unable to work [] Unable to attend gnosticist [] Unable to walk/stand [] Unable to read [] Unable to drive [] Unable to eat/drink [] Unable to sleep [] Unable to be with family [] Patient intubated [] Other: Summary Time spent with patient 10 min
[2022-03-06 11:24] LABS: Glucose Point of Care > 600 mg/dL (70-110)
[2022-03-06 11:24] LABS: Glucose Point of Care > 600 mg/dL (70-110)
--- NOTE | 2022-03-06 11:27 | PM.PN ---
Subjective Subjective: This morning patient stating that his right-sided pleuritic chest pain is improved He wanted to go home however he I asked him to stay 1 more day for his sepsis related to pneumonia Blood sugar is high Rule out DKA Serum ketones yesterday were negative I will give him 10 units regular insulin along 2 L bolus of normal saline Vitals/I&O/Wt Last Vital Signs Temp 97.6 F 03/06/22 08:15 Pulse 101 H 03/06/22 09:31 Resp 20 H 03/06/22 09:24 BP 117/72 03/06/22 08:15 Pulse Ox 90 03/06/22 09:24 O2 Del Method 03/06/22 09:24 O2 Flow Rate 4 03/06/22 08:00 03/05/22 03/06/22 03/06/22 22:59 06:59 14:59 Intake Total 1450 / 1450 1000 / 2450 50 / 50 Balance 1450 / 1450 1000 / 2450 50 / 50 Weight last 48 hrs Weight 99.79 kg Weight 99.79 kg Physical Exam Narrative: Patient is awake and alert Right-sided pleuritic chest pain has improved Bilateral breath sounds with rhonchi Abdomen is distended however soft No signs of edema Awake and alert Nonfocal neuro exam Pleasant cooperative No sign of skin ulcer Data : 03/06/22 06:07 03/06/22 07:37 Micro: Microbiology 03/05/22 17:46 Bacterial Antigens - Final Urine,Voided 03/05/22 16:55 Blood Culture - Preliminary Blood SPECIMEN COLLECTED 03/05/22 16:57 Blood Culture - Preliminary Blood SPECIMEN COLLECTED A&P Assessment and plan (1) Acute and chronic respiratory failure with hypoxia: Status: Acute (2) Pleuritic chest pain: Status: Acute (3) Pneumonia: Status: Acute (4) Sepsis: Status: Acute (5) Hyperglycemia: Status: Acute (6) COPD (chronic obstructive pulmonary disease): Status: Acute Qualifiers: COPD type: unspecified COPD Qualified Code(s): J44.9 - Chronic obstructive pulmonary disease, unspecified (7) Diabetes mellitus: Status: Chronic Qualifiers: Diabetes mellitus type: type 2 Diabetes mellitus correction insulin use: without intermediate accountant use Diabetes mellitus complication status: without complication Qualified Code(s): E11.9 - Type 2 diabetes mellitus without complications Plan Acute on chronic hypoxic Sepsis related to community-acquired pneumonia At home uses 3 L Currently on 4 L Pleuritic chest pain has improved Hyperglycemic, rule out DKA Added Lantus, last A1c 11 We will give 2 L bolus, 10 units of regular insulin He has high anion gap, acidosis, checking serum ketones, Leukocytosis improving Continue IV ceftriaxone and azithromycin Afebrile Patient clinically doing better COPD Active smoker 2 to 3 packs, patient has decided to quit, cold turkey Atrial tachycardia Patient has reflux for between atrial tachycardia to sinus rhythm Continue metoprolol Full code Plan to discharge him tomorrow if clinically stable and no signs of DKA Continue LIZZIE Merritt steroids Continue levothyroxine Attestations Medical Necessity Statement*: Discharge tomorrow if clinically stable Time Spent in Patient Care: 30 Coding Level of Care Code 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
--- NOTE | 2022-03-06 11:29 | PC.NURSE ---
Blood sugar was taken at 9:07 and read 461. 18 units was given and rechecked at 11:15 and read high . [address] Schneider was notified and orders were given.
--- NOTE | 2022-03-06 11:32 | PC.NURSE ---
Home meds were put in [facility] [address].
[2022-03-06] MEDS: sodium chloride 0.9% 1,000 ML 999 ML IV ×2 (11:50→13:12)
[2022-03-06] MEDS: insulin regular-human 10 UNIT in SYRINGE 1 EACH IVP (11:51)
[2022-03-06 11:52] LABS: Glucose Point of Care > 600 mg/dL (70-110)
[2022-03-06 12:02] LABS: Estmated Average Glucose 266; Hemoglobin A1C 10.9 % (4.0-6.0)
[2022-03-06 12:44] LABS: Ketone (Acetest) Serum Negative (Negative)
[2022-03-06 13:23] LABS: Glucose Point of Care > 600 mg/dL (70-110)
--- NOTE | 2022-03-06 13:28 | PC.NURSE ---
Blood sugar was checked again and glucometer is still reading high. Mountain debety and hortencia was sitting on the patients table. Nurse educated patient that he doesn't need to be eating and drinking sweets since blood sugar is so high. Patient stated that it came on his lunch tray. Nurse notified the provider so diet could be changed.
[2022-03-06 15:16] LABS: Glucose Point of Care > 600 mg/dL (70-110)
[2022-03-06 17:26] LABS: Glucose Point of Care 576 mg/dL (70-110)
[2022-03-06] MEDS: morphine IR 15 mg Tablet PO (18:15)
[2022-03-06] MEDS: levothyroxine 75 mcg Tablet PO (20:31)
[2022-03-06] MEDS: pantoprazole DR 40 mg Tablet PO (20:31)
[2022-03-06] MEDS: clopidogrel 75 mg Tablet PO (20:31)
[2022-03-06] MEDS: aspirin 81 mg EC Tablet PO (20:31)
[2022-03-06] MEDS: insulin glargine 100 units/1 mL 20 UNIT SUBCUT (20:31)
[2022-03-06] MEDS: ketorolac 30 mg/mL INJ 15 MG IVP (20:46)
[2022-03-06 22:24] LABS: Glucose Point of Care 347 mg/dL (70-110)
[2022-03-07 01:00] VITALS: BP 107/67; PULSE 69; RESP 12; TEMP 36.4; O2SAT 93
[2022-03-07 04:28] LABS: Basophils % 0.1 %; Hemoglobin 13.4 g/dL (11.7-16.6); Lymphocytes # 1.8 10^3/uL (0.8-4.8); Lymphocytes % 6.6 %; Mean Corpuscular HGB Conc 33.5 g/dL (30.0-36.0); Mean Corpuscular Hemoglobin 30.6 pg (28.0-34.0); Mean Corpuscular Volume 91.3 fl (80-94); Monocytes # 1.4 10^3/uL (0.2-0.9); Monocytes % 5.1 %; Neutrophils # 23.47 10^3/uL (1.8-7.7); Neutrophils % 87.2 %; Nucleated Red Blood Cells % 0 %; Platelet Count 302 10^3/cmm (130-400); Red Blood Count 4.38 10^6/uL (4.1-5.3); Red Cell Distribution Width 11.9 % (12.1-15.1); White Blood Count 26.9 10^3/uL (4.0-10.0)
[2022-03-07 04:50] LABS: Anion Gap 15.1 (5-19); Blood Urea Nitrogen 32 mg/dL (6-20); Calcium 9.2 mg/dL (8.5-10.5); Carbon Dioxide 21 mmol/L (22-29); Chloride 102 mmol/L (98-107); Glucose 146 mg/dL (65-115); Osmolality Calculated 288 mOsm/kg (285-295); Potassium 4.1 mmol/L (3.5-5.1); Sodium 134 mmol/L (136-145)
[2022-03-07 05:00] VITALS: BP 108/70; PULSE 73; RESP 14; TEMP 36.5; O2SAT 93
[2022-03-07 06:45] LABS: Glucose Point of Care 278 mg/dL (70-110)
[2022-03-07 08:00] VITALS: BP 104/63; PULSE 74; RESP 16; TEMP 36.3; O2SAT 93
[2022-03-07] MEDS: azithromycin 250 mg Tablet 500 MG PO (08:22)
[2022-03-07] MEDS: insulin lispro 100 unit/1 mL SUBCUT ×4 (08:22→12:36)
[2022-03-07] MEDS: sennosides-docusate Tablet 1 TAB PO (08:22)
[2022-03-07] MEDS: cefTRIAXone 1,000 MG in sodium chloride 0.9% (plus) 50 ML 100 MG IV (08:24)
[2022-03-07] MEDS: metoprolol tartrate 25 mg Tablet PO (08:43)
[2022-03-07 09:54] VITALS: PULSE 90; RESP 18; O2SAT 93
[2022-03-07 11:53] LABS: Glucose Point of Care 350 mg/dL (70-110)
[2022-03-07 12:00] VITALS: BP 114/76; PULSE 68; RESP 17; TEMP 36.5; O2SAT 94
--- NOTE | 2022-03-07 12:16 | P.DS_ITS ---
Discharge Providers Date of Admission: 03/05/22 23:33 Date of Discharge: March 07, 2022 Attending Provider at Admission: Macy Schneider MD Attending Provider at Discharge: Macy Schneider MD Primary Care Provider: JACQUELIN Gordon Diagnoses at Discharge Discharge Diagnosis (1) Acute and chronic respiratory failure with hypoxia: Status: Acute (2) Pleuritic chest pain: Status: Acute (3) Pneumonia: Status: Acute (4) Sepsis: Status: Acute (5) Hyperglycemia: Status: Acute (6) COPD (chronic obstructive pulmonary disease): Status: Acute Qualifiers: COPD type: unspecified COPD Qualified Code(s): J44.9 - Chronic obstructive pulmonary disease, unspecified (7) Diabetes mellitus: Status: Chronic Qualifiers: Diabetes mellitus type: type 2 Diabetes mellitus senior care insulin use: without mill house supervisor use Diabetes mellitus complication status: without complication Qualified Code(s): E11.9 - Type 2 diabetes mellitus without complications Reason for Visit Reason for Visit: RESP DISTRESS Hospital Course Hospital Course 56-year-old male active smoker, presented to the hospital with chief complaint of worsening shortness of breath, at baseline uses 3 L of oxygen, was complaining of right-sided pleuritic chest pain which resolved with use of anti- inflammatory medications. He was diagnosed with sepsis related to community-acquired pneumonia. Pleuritic chest pain improved next day, he was saturating well on 3 to 4 L nasal cannula however on 03/07 his oxygen saturation is normal on room air he is able to walk down the [place] without any complication. Patient is anxious to return home. I will give him albuterol, trilogy, levofloxacin 10-day regimen, repeat chest x-ray within 6 weeks and pulmonary medicine outpatient referral. He might benefit from low-dose CT scan because of his chronic smoking history. Patient has quit smoking cold turkey. He remained afebrile, cultures negative to date. Physical Exam Narrative: Pleasant and cooperative Patient walking down the najera Saturating well on room air Abdomen soft No active wheezing Pleuritic chest pain improved Nonfocal neuro exam Discharge Data Studies Completed and Pending Completed Studies During Hospitalization Category Date Time Status XR chest 1V portable [id number] Stat Exams 03/05/22 15:33 Completed Pending at discharge Category Date Time Status Blood Culture Stat Lab 03/05/22 16:55 Results Sputum Culture and Gram Stain Stat Lab 03/05/22 16:32 Uncollected Radiology Impressions Chest X-Ray 03/05/22 15:33 IMPRESSION: Bilateral small volume pleural effusions with ill-defined bibasilar opacities, most likely reflecting corresponding atelectasis. Laboratory Results WBC 26.9 10^3/uL (4.0-10.0) H 03/07/22 03:45 RBC 4.38 10^6/uL (4.1-5.3) 03/07/22 03:45 Hgb 13.4 g/dL (11.7-16.6) 03/07/22 03:45 Hct 40.0 % (42.0-52.0) L 03/07/22 03:45 MCV 91.3 fl (80-94) 03/07/22 03:45 MCH 30.6 pg (28.0-34.0) 03/07/22 03:45 MCHC 33.5 g/dL (30.0-36.0) 03/07/22 03:45 RDW 11.9 % (12.1-15.1) L 03/07/22 03:45 Plt Count 302 10^3/cmm (130-400) 03/07/22 03:45 MPV 12.0 fL (7.4-10.4) H 03/07/22 03:45 Neut % (Auto) 87.2 % 03/07/22 03:45 Lymph % (Auto) 6.6 % 03/07/22 03:45 Ralls % (Auto) 5.1 % 03/07/22 03:45 Eos % (Auto) 0.0 % 03/07/22 03:45 Baso % (Auto) 0.1 % 03/07/22 03:45 Neut # (Auto) 23.47 10^3/uL (1.8-7.7) H 03/07/22 03:45 Lymph # (Auto) 1.8 10^3/uL (0.8-4.8) 03/07/22 03:45 Ralls # (Auto) 1.4 10^3/uL (0.2-0.9) H 03/07/22 03:45 Eos # (Auto) 0.0 10^3/uL (0.0-0.8) 03/07/22 03:45 Baso # (Auto) 0.0 10^3/uL (0.0-0.1) 03/07/22 03:45 Nucleated RBC % (auto) 0 % 03/07/22 03:45 Nucleated RBCs # 0.0 /100WBC 03/07/22 03:45 PT 15.80 SECONDS (12.1-14.9) H 03/05/22 15:50 INR 1.23 (0.8-1.2) H 03/05/22 15:50 APTT 29.9 SECONDS (23.9-36.7) 03/05/22 15:50 Specimen Type Arterial 03/05/22 15:40 Sample Site Radial, left 03/05/22 15:40 ABG pH 7.45 (7.35-7.45) 03/05/22 15:40 ABG pCO2 28.9 mmHg (35-45) L 03/05/22 15:40 ABG pO2 74.3 mmHg (80.0-100.0) L 03/05/22 15:40 ABG HCO3 20.1 mmol/L (22-26) L 03/05/22 15:40 ABG O2 Saturation 96.1 03/05/22 15:40 ABG Base Excess -2.4 mmol/L (-2.0-2.0) L 03/05/22 15:40 Raúl Test Pos 03/05/22 15:40 A-a O2 Gradient 18.8 mmHg (5-10) H 03/05/22 15:40 Hematocrit 50.2 % (42-52) 03/05/22 15:40 Hgb O2 Saturation 94.6 % (95-100) L 03/05/22 15:40 Carboxyhemoglobin 1.6 %THgb (0.4-20.1) 03/05/22 15:40 Methemoglobin 0.0 % (0.4-1.5) L 03/05/22 15:40 Total Hemoglobin 16.4 g/dL (14-18) 03/05/22 15:40 Sodium 128.0 mmol/L (131-143) L 03/05/22 15:40 Potassium 4.2 mmol/L (3.5-5.0) 03/05/22 15:40 Glucose 479.0 mg/dL (70-115) H 03/05/22 15:40 Ionized Calcium 1.2 mmol/L (1.1-1.4) 03/05/22 15:40 O2 Delivery Device Nc 03/05/22 15:40 O2 Liters/Min 4.0 % 03/05/22 15:40 FiO2 36.0 % 03/05/22 15:40 Marketing Services Coordinator ID Ian 03/05/22 15:40 Sodium 134 mmol/L (136-145) L 03/07/22 03:45 Potassium 4.1 mmol/L (3.5-5.1) 03/07/22 03:45 Chloride 102 mmol/L (98-107) 03/07/22 03:45 Carbon Dioxide 21 mmol/L (22-29) L 03/07/22 03:45 Anion Gap 15.1 (5-19) 03/07/22 03:45 BUN 32 mg/dL (6-20) H 03/07/22 03:45 Creatinine 0.5 mg/dL (0.7-1.2) L 03/07/22 03:45 GFR Calculation 172.0 mL/min (90-130) H 03/07/22 03:45 Glucose 146 mg/dL (65-115) H 03/07/22 03:45 POC Glucose 350 mg/dL (70-110) H 03/07/22 11:51 Estimat Average Glucose 266 03/06/22 06:07 Hemoglobin A1c 10.9 % (4.0-6.0) H 03/06/22 06:07 Calculated Osmolality 288 mOsm/kg (285-295) 03/07/22 03:45 Lactic Acid 2.3 mmol/L (0.5-2.2) H 03/05/22 15:30 Lactic Acid (Sepsis) 2.0 mmol/L (0.5-2.2) 03/05/22 18:06 Lactate 2.0 mmol/L (0.5-2.2) 03/06/22 06:07 Calcium 9.2 mg/dL (8.5-10.5) 03/07/22 03:45 Phosphorus 3.1 mg/dL (2.5-4.5) 03/06/22 07:37 Magnesium 1.9 mg/dL (1.7-2.3) 03/06/22 07:37 Total Bilirubin 0.6 mg/dL (0.15-1.2) 03/06/22 07:37 AST 11 U/L (0-40) 03/06/22 07:37 ALT 11 U/L (0-41) 03/06/22 07:37 Alkaline Phosphatase 116 IU/L (40-130) 03/06/22 07:37 Creatine Kinase 71 U/L (39-308) 03/05/22 15:50 Troponin T Baseline 7 ng/L (0-15) 03/05/22 15:50 Troponin T 120 Minute 7.92 ng/L (0-15) 03/05/22 17:49 Delta Troponin T 0.92 ABS# (0-10) 03/05/22 17:49 Troponin T Hi Sens 6Hr 6.00 ng/L (0-15) 03/05/22 22:20 Troponin T Hi Sens 6Hr Delta -1.00 ng/L (0-12) L 03/05/22 22:20 C-Reactive Protein 327.3 mg/L (0.0-4.9) H 03/06/22 07:37 Total Protein 6.9 g/dL (6.6-8.7) 03/06/22 07:37 Albumin 2.9 g/dL (3.5-5.2) L 03/06/22 07:37 Globulin 4.0 g/dL (1.3-4.6) 03/06/22 07:37 Procalcitonin 6.50 ng/mL (0-0.5) H 03/05/22 18:43 Urine Color Yellow (Yellow) 03/05/22 17:46 Urine Appearance Clear (CLEAR) 03/05/22 17:46 Urine pH 5 (5-7) 03/05/22 17:46 Ur Specific Hermon 1.015 (1.005-1.030) 03/05/22 17:46 Urine Protein Neg (Negative) 03/05/22 17:46 Urine Glucose (UA) 4+ (Normal) H 03/05/22 17:46 Urine Ketones 1+ (Negative) H 03/05/22 17:46 Urine Blood Neg (Negative) 03/05/22 17:46 Urine Nitrate Negative (Negative) 03/05/22 17:46 Urine Bilirubin Neg (Negative) 03/05/22 17:46 Urine Urobilinogen Norm mg/dL (Negative) 03/05/22 17:46 Ur Leukocyte Esterase Negative (Negative) 03/05/22 17:46 Serum Ketones Negative (Negative) 03/06/22 12:13 Vitals Last Vital Signs Temp 97.4 F L 03/07/22 08:00 Pulse 90 03/07/22 09:54 Resp 18 03/07/22 09:54 BP 104/63 03/07/22 08:00 Pulse Ox 93 03/07/22 09:54 O2 Del Method 03/07/22 09:54 O2 Flow Rate 4 03/06/22 20:00 Discharge Plan Discharge Patient Disposition: Home Condition: Stable Prescriptions: New albuterol sulfate 90 mcg/actuation HFA aerosol inhaler 2 inh inhalation Q8H PRN (Reason: shortness of breath or wheezing) Qty: 8.5 2RF Trelegy Ellipta 100-62.5-25 mcg blister with device 1 inh inhalation DAILY Qty: 60 2RF levofloxacin 750 mg tablet 750 mg PO Q24H 10 Days Qty: 10 0RF insulin glargine [Lantus Solostar U-100 Insulin] 100 unit/mL (3 mL) insulin pen 10 unit SUBCUT QPM Qty: 15 4RF Continued aspirin [Adult Low Dose Aspirin] 81 mg tablet,delayed release (DR/EC) 81 mg PO BEDTIME (DME) blood-glucose meter Misc See Rx Instructions .Route Qty: 1 0RF Rx Instructions: As directed (DME) lancets [BD Ultra Fine Lancets] 33 gauge misc See Rx Instructions .Route Qty: 100 3RF Rx Instructions: once daily budesonide-formoterol [Symbicort] 160-4.5 mcg/actuation HFA aerosol inhaler 2 puff inhalation BID Qty: 10.2 2RF (DME) Blood Glucose Test Strip See Rx Instructions .Route Qty: 100 3RF Rx Instructions: once daily albuterol sulfate [ProAir HFA] 90 mcg/actuation HFA aerosol inhaler 2 puff inhalation QID PRN (Reason: shortness of breath or wheezing) Qty: 6.7 2RF Nitrostat 0.4 mg Tablet, Sublingual 0.4 mg SUBLINGUAL Q5M PRN (Reason: Chest Pain) Rx Instructions: do not exceed 3 doses per episode Celexa 40 mg tablet 40 mg PO BEDTIME omega-3 fatty acids 1,000 mg capsule 1,000 mg PO BEDTIME Zyrtec 10 mg tablet 10 mg PO BEDTIME clopidogrel 75 mg tablet 75 mg PO BEDTIME simvastatin 80 mg tablet 80 mg PO BEDTIME Synthroid 75 mcg tablet 75 mcg PO BEDTIME Rx Instructions: on an empty stomach for hypothyroidism omeprazole 20 mg capsule,delayed release(DR/EC) 20 mg PO BEDTIME Rx Instructions: 30 minutes before morning meal for gastroesophageal reflux disease metoprolol tartrate 25 mg tablet 25 mg PO BEDTIME Ozempic 0.25 mg or 0.5 mg(2 mg/1.5 mL) pen injector 0.25 mg SUBCUT Q7D Rx Instructions: ON SUNDAYS zolpidem 10 mg tablet 10 mg PO BEDTIME Discontinued potassium chloride 10 mEq capsule, extended release 10 meq PO BEDTIME Celebrex 100 mg capsule 100 mg PO BEDTIME Discharge Orders: Discharge Order (Routine); Ordered 03/07/22 Ordered By: Macy Schneider Other Ambulatory Orders: XR chest 2V insp/exp [id number] (Routine) Timeframe: 6 Weeks Facility: [facility] - Location: Radiology [place] Ordered By: Macy Schneider Referrals: Shonna Glaser FNP-C [Primary Care Provider] - 2 weeks Datar,Marcello Juraez MD [Physician] - 2 weeks Discharge Diet: Diabetic Patient Instructions: Opioid Safety Discharge Attestations Time Spent in Discharge Care*: less than 30 min Quality Metrics Clinical Quality Measures [ No reported AMI, CVA or VTE this stay] Coding Level of Care Code Acute Chg [facility] note Diagnoses Acute and chronic respiratory failure with hypoxia J96.21 Pleuritic chest pain R07.81 Pneumonia J18.9 Sepsis A41.9 Hyperglycemia R73.9 COPD (chronic obstructive pulmonary disease) J44.9 COPD type: unspecified COPD Diabetes mellitus E11.9 Diabetes mellitus type: type 2 Diabetes mellitus mill house supervisor insulin use: without mill house supervisor use Diabetes mellitus complication status: without complication
--- NOTE | 2022-03-07 13:23 | PC.NURSE ---
Discussed discharge paperwork, follow up appointments and medications with patient and son. Verbalized understanding.
[2022-03-07 13:35] VITALS: BP 114/76; PULSE 68; RESP 17; TEMP 36.5; O2SAT 94
== END 2022-03-07 13:37 | disposition home or self-care (01) | DRG 193 ==
LOC: ER 22:17 → ER IP 03-06 00:05 → MEDSURG 03-06 07:55
PROVIDERS: Admitting Provider Internal Medicine; Emergency Provider Family Medicine; PCP Nurse Practitioner Family; Visit Provider Internal Medicine
DX: J18.9 Pneumonia, unspecified organism (principal); J96.21 Acute and chronic respiratory failure with hypoxia; J44.0 Chronic obstructive pulmonary disease with (acute) lower respiratory infection; I25.10 Atherosclerotic heart disease of native coronary artery without angina pectoris; Z95.5 Presence of coronary angioplasty implant and graft; F17.210 Nicotine dependence, cigarettes, uncomplicated; Z28.310 Unvaccinated for COVID-19; E11.65 Type 2 diabetes mellitus with hyperglycemia; F41.8 Other specified anxiety disorders; E78.5 Hyperlipidemia, unspecified; I10 Essential (primary) hypertension; K21.9 Gastro-esophageal reflux disease without esophagitis; E03.9 Hypothyroidism, unspecified; Z79.4 Long term (current) use of insulin; Z79.82 Long term (current) use of aspirin; Z79.51 Long term (current) use of inhaled steroids; Z79.02 Long term (current) use of antithrombotics/antiplatelets
CPT/HCPCS: 36415; 36416; 36600; 71045; 80048; 80051; 80053; 81003; 82009; 82330; 82550; 82805; 82962; 83036; 83605; 83735; 84100; 84145; 84484; 85025; 85610; 85730; 86140; 86403; 87040; 87641; 93005; 94640; 94664; 94760; 96365; 96367; 96372; 96375; 99285; J0696; J1815; J1885; J1956; J2543; J2930; J3370; J3490; J7030; J7050; J7626; Q0144

== ENCOUNTER → 2022-03-13 10:50 | Outpatient (BNVA) | payer MEDICARE, MEDICAID, SELFPAY | PROVIDERS: PCP Nurse Practitioner Family; Visit Provider Nurse Practitioner Family | DX: J18.9 Pneumonia, unspecified organism (principal); B37.0 Candidal stomatitis | CPT/HCPCS: 71046 ==

== ENCOUNTER 2022-03-13 14:11 | Emergency (ER) | payer MEDICARE, MEDICAID, SELFPAY ==
[2022-03-13] VITALS (25 sets, daily range): BP systolic 104–120; BP diastolic 62–76; PULSE 74–124; RESP 16–51; TEMP 36.7–36.8; O2SAT 94–99; BMI 33.3
--- NOTE | 2022-03-13 14:17 | ECG_ITS ---
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 Measurements Intervals [place] Rate: 88 P: 7 [place]: 176 QRS: -56 QRSD: 131 T: 65 QT: 399 QTc: 485 Interpretive Statements SINUS RHYTHM LEFT AXIS DEVIATION [QRS AXIS < -30] LEFT BUNDLE BRANCH BLOCK [120+ ms QRS DURATION, 80+ ms Q/S IN V1/V2, 85+ ms R IN I/aVL/V5/V6] Compared to ECG 03/13/2022 14:17:23 No significant changes Electronically Signed On 03-14-2022 19:00:44 CDT by Liz Nayak M.D. [email or web address]
--- NOTE | 2022-03-13 14:23 | ED_ITS ---
HPI - SOB/Dyspnea General: Chief Complaint: Shortness of Breath/Dyspnea Stated Complaint: SOB, R CHEST PAIN Time Seen by Provider: 03/13/22 14:17 Source: patient Mode of arrival: EMS Limitations: no limitations History of Present Illness: HPI Narrative: This patient who has known advanced COPD oxygen requiring at home and was recently admitted and discharged at this facility after COPD exacerbation associated with community-acquired pneumonia was referred to the emergency de partment today. Apparently was in a out reach primary care clinic and was seen there by an advanced nurse practitioner who thought that he had more of an effusion on the chest x-ray and referred him to the emergency department. Patient states that he feels better than he did when he was discharged from the hospital and thought he was doing pretty well. He states he has been using his inhaler as prescribed, taking the antibiotics, eating and drinking normally. Denies fevers. He does have pain in his right chest with deep inspiration but that is not new today. Pertinent past history: COPD and pneumonia Known history of: COPD Associated symptoms: Reports chest pain and cough; Deny abdominal pain, extremity pain, fever(s), nausea, syncope or vomiting Treatment prior to arrival: oxygen and bronchodilator Related Data: Home oxygen amount: 4 liters Review of Systems Const: Denies: fever(s), chills or body aches Eyes: Denies: change in vision ENMT: Denies: odynophagia or nasal congestion Card: Reports: chest pain; Denies: edema, swelling of feet/ankles or syncope Resp: Reports: dyspnea, wheezing and pain on inspiration GI: Denies: abdominal pain, nausea, vomiting or diarrhea : Denies: flank pain, difficulty urinating or dysuria Musc: Denies: neck pain, back pain, extremity pain or extremity swelling Skin/Breast: Denies: rash Neuro: Denies: headache(s), numbness in extremities or weakness in extremities PFSH ED PFSH: Medical History Acute and chronic respiratory failure with hypoxia Anxiety and depression Atherosclerotic coronary vascular disease COPD (chronic obstructive pulmonary disease) Diabetes mellitus Dyslipidemia Encounter for counseling for care management of patient with chronic conditions and complex health needs using nurse-based model Environmental and seasonal allergies Essential hypertension GERD (gastroesophageal reflux disease) Hyperglycemia Hypothyroid Insomnia due to mental condition Leg cramps Osteoarthritis, chronic Pleuritic chest pain Pneumonia Sepsis Smoker Surgical History H/O knee surgery S/P coronary artery stent placement Social History Smoking and tobacco status: current every day smoker cigarettes Packs smoked per day: 3 Second hand smoke exposure: Yes Smoking risk assessment/counseling performed?: Yes Alcohol intake: never Desire information about alcohol rehabilitation?: No Counseling given: No Desire information about substance/drug rehabilitation?: No Counseling given: No Adopted: No Caregiver/support person: No Lives independently: Yes Household members: spouse Housing: House Marital status: service: No History of recent travel: No Current gender identity: Male Physical Exam Narrative: EXAM NARRATIVE: The patient is awake and alert and answers questions appropriately. He speaks in fairly complete sentences with some mild in symptoms dyspnea. Const: COMMON NORMALS: patient oriented x3 GENERAL APPEARANCE: cooperative and comfortable HENMT: COMMON NORMALS: normocephalic, Normal nasal mucous membranes and turbinates present and moist oral mucous membranes HEAD & SCALP: normocephalic FACE & SINUS: normal facial exam NOSE: Normal nasal mucous membranes and turbinates present Eye: COMMON NORMALS: Equal, round and reactive pupils present, EOMs intact bilaterally and no scleral icterus PUPIL: Yes Equal, round and reactive pupils present Neck/C-Spine: COMMON NORMALS: full ROM, no JVD and Thyroid normal THYROID: Thyroid normal Chest: COMMONS NORMALS: normal inspection of the chest CHEST: Yes tenderness (Right chest) Resp: AUSCULTATION: crackles (Bilaterally.) and no wheezes Cardio: COMMON NORMALS: no JVD, regular rate, regular rhythm, No murmurs present (Cardio) and Peripheral pulses 2+ throughout RATE: regular rate RHYTHM: regular rhythm PERIPHERAL PULSES: Peripheral pulses 2+ throughout GI: COMMON NORMALS: Normal to inspection, nondistended, normoactive bowel sounds present, Soft to palpation and non-tender PALPATION: Yes Soft to palpation : COMMON NORMALS: Yes no CVA tenderness BLADDER/KIDNEY EXAM: Yes no CVA tenderness Back/Pelvis: COMMON NORMALS: no CVA tenderness, thoracic and lumbar spine normal to inspection, no thoracic nor lumbar tenderness and thoraco-lumbar ROM normal Extremity: COMMON NORMALS: normal to inspection, full ROM, capillary refill normal, no clubbing, cyanosis or edema, no calf tenderness and no pedal edema Neuro: COMMON NORMALS: patient oriented x3, moves all extremities, no focal motor deficits and no sensory deficits noted CRANIAL NERVES: Yes CN normal except as noted SPEECH: speech normal MOTOR EXAM: 5/5 motor strength present throughout Psych: COMMON NORMALS: mental status grossly normal and cooperative Skin: COMMON NORMALS: no rashes or lesions noted, turgor normal and no jaundice GENERAL SKIN EXAM: no rashes or lesions noted and turgor normal Course Reevaluation(s): Reevaluation #1: Patient was reevaluated. He states he feels improved. Repeat examination reveals him to be alert vital signs are noted. He maintains saturation greater than 95% on his usual 4 L of oxygen. Repeat auscultation reveals significant improvement in his auscultatory findings. He has very minimal basilar crackles. No wheezes at this time. No other new or focal findings on repeat evaluation. His chest x-ray today in the emergency department is reassuring. This in addition to his clinical picture and improvement with nebulizer enforces that he is convalescing from his pneumonia and COPD exacerbation and that I reasonably discharged him to continue his care at home. He has very much in favor of this plan of care. He does have the necessary tools at home to include hospital bed, oxygen concentrator, nebulizer to continue his convalescence. He was given a liter of fluids in the emergency department as his BUN was noted to be elevated likely representing insensible loss over this current illness. He is able to d rink fluids and was observed to drink fluids while in the emergency department and was encouraged to continue to do so at home. Time: 17:17 Vital Signs: Vital signs: Vital Signs Temperature 98.1 F 03/13/22 14:18 Pulse Rate 90 03/13/22 16:50 Respiratory Rate 20 H 03/13/22 16:40 Blood Pressure 105/62 03/13/22 16:05 Pulse Oximetry 97 03/13/22 16:40 Oxygen Delivery Me thod 03/13/22 16:40 Oxygen Flow Rate 4 03/13/22 16:40 MDM - SOB/Dyspnea Medical Decision Making Patient with recent admission for community-acquired pneumonia and COPD was sent for reevaluation due to concern about possible increase in infusion on chest x- ray. Clinical evaluation here was reassuring and that his effusion had diminished he displayed stable vital signs and responded to IV hydration in the emergency department. He is clinically stable for continued management at home. No evidence at this time of ongoing emergency medical condition that requires additional observation or readmission to the hospital. Medical Records I reviewed the patient's medical records. Lab Data I reviewed the patient's lab results. : 03/13/22 14:59 Labs/Radiology: Radiology Impressions Chest X-Ray 03/13/22 14:39 IMPRESSION: Persistent small right pleural effusion with adjacent atelectasis. Pneumonia should be excluded clinically. Laboratory Results Sodium 138 mmol/L (136-145) 03/13/22 14:59 Potassium 3.8 mmol/L (3.5-5.1) 03/13/22 14:59 Chloride 102 mmol/L (98-107) 03/13/22 14:59 Carbon Dioxide 26 mmol/L (22-29) 03/13/22 14:59 Anion Gap 13.8 (5-19) 03/13/22 14:59 BUN 9 mg/dL (6-20) 03/13/22 14:59 Creatinine 0.5 mg/dL (0.7-1.2) L 03/13/22 14:59 GFR Calculation 172.0 mL/min (90-130) H 03/13/22 14:59 Glucose 275 mg/dL (65-115) H 03/13/22 14:59 Calculated Osmolality 294 mOsm/kg (285-295) 03/13/22 14:59 Calcium 9.0 mg/dL (8.5-10.5) 03/13/22 14:59 Total Bilirubin 0.3 mg/dL (0.15-1.2) 03/13/22 14:59 AST 17 U/L (0-40) 03/13/22 14:59 ALT 19 U/L (0-41) 03/13/22 14:59 Alkaline Phosphatase 80 IU/L (40-130) 03/13/22 14:59 Total Protein 6.6 g/dL (6.6-8.7) 03/13/22 14:59 Albumin 2.6 g/dL (3.5-5.2) L 03/13/22 14:59 Globulin 4.0 g/dL (1.3-4.6) 03/13/22 14:59 Discharge Plan Discharge Patient Disposition: Home Clinical Impression: COPD (chronic obstructive pulmonary disease), Pneumonia, Fluid volume depletion Condition: Stable Prescriptions: No Action aspirin [Adult Low Dose Aspirin] 81 mg tablet,delayed release (DR/EC) 81 mg PO BEDTIME nystatin 100,000 unit/mL suspension 4 - 6 ml PO BID 14 Days Qty: 28 0RF Rx Instructions: swish and swallow (rx filled 03/13/22 14d/s) (DME) blood-glucose meter Misc See Rx Instructions .Route Qty: 1 0RF Rx Instructions: As directed (DME) lancets [BD Ultra Fine Lancets] 33 gauge misc See Rx Instructions .Route Qty: 100 3RF Rx Instructions: once daily budesonide-formoterol [Symbicort] 160-4.5 mcg/actuation HFA aerosol inhaler 2 puff inhalation BID Qty: 10.2 2RF (DME) Blood Glucose Test Strip See Rx Instructions .Route Qty: 100 3RF Rx Instructions: once daily (DME) nebulizer accessories Kit See Rx Instructions .Route Qty: 1 0RF Rx Instructions: As directed albuterol sulfate 2.5 mg /3 mL (0.083 %) solution for nebulization 2.5 mg inhalation QID PRN (Reason: shortness of breath or wheezing) Qty: 75 5RF (DME) compressor, for nebulizer Device See Rx Instructions .Route Qty: 1 0RF Rx Instructions: As directed nitroglycerin [Nitrostat] 0.4 mg Tablet, Sublingual 0.4 mg SUBLINGUAL Q5M PRN (Reason: Chest Pain) Rx Instructions: do not exceed 3 doses per episode citalopram [Celexa] 40 mg tablet 40 mg PO BEDTIME omega-3 fatty acids 1,000 mg capsule 1,000 mg PO BEDTIME cetirizine [Zyrtec] 10 mg tablet 10 mg PO BEDTIME clopidogrel 75 mg tablet 75 mg PO BEDTIME simvastatin 80 mg tablet 80 mg PO BEDTIME levothyroxine [Synthroid] 75 mcg tablet 75 mcg PO BEDTIME Rx Instructions: on an empty stomach for hypothyroidism omeprazole 20 mg capsule,delayed release(DR/EC) 20 mg PO BEDTIME Rx Instructions: 30 minutes before morning meal for gastroesophageal reflux disease metoprolol tartrate 25 mg tablet 25 mg PO BEDTIME zolpidem 10 mg tablet 10 mg PO BEDTIME insulin glargine [Lantus Solostar U-100 Insulin] 100 unit/mL (3 mL) insulin pen 10 unit SUBCUT QPM Qty: 15 4RF levofloxacin 750 mg tablet 750 mg PO Q24H 10 Days Qty: 10 0RF Rx Instructions: rx filled 03/07/22 10d/s Treleleidy Ellipta 100-62.5-25 mcg blister with device 1 inh inhalation DAILY Qty: 60 2RF albuterol sulfate 90 mcg/actuation HFA aerosol inhaler 2 puff inhalation Q8H PRN (Reason: shortness of breath or wheezing) Discharge Orders: Discharge ED (Routine); Ordered 03/13/22 Ordered By: Walter Pantoja Referrals: Shonna Glaser FNP-C [Primary Care Provider] - Discharge Diet: Usual diet and Low Salt Discharge Activity: Increase activity as tolerated Patient Instructions: Opioid Safety Activity Restrictions/Additional Instructions: Continue the antibiotics prescribed at discharge until they are completely gone. Continue to use your home oxygen concentrator at the recommended rate. Continue to use your nebulizer 4-6 times a day. Follow-up with your regular clinic within the next 2 weeks. If you develop any new, worsening, persistent symptoms such as fever, worsening shortness of breath etc. return to this or the nearest emergency department. Coding Level of Care Code ED [employer] Technician for Augustus Fwbeverly Exam Comprehensive
--- NOTE | 2022-03-13 14:38 | ECG_ITS ---
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 Measurements Intervals [place] Rate: 89 P: 5 [place]: 176 QRS: -56 QRSD: 134 T: 64 QT: 400 QTc: 487 Interpretive Statements SINUS RHYTHM LEFT AXIS DEVIATION [QRS AXIS < -30] LEFT BUNDLE BRANCH BLOCK [120+ ms QRS DURATION, 80+ ms Q/S IN V1/V2, 85+ ms R IN I/aVL/V5/V6] Compared to ECG 03/05/2022 21:41:21 First degree AV block no longer present Electronically Signed On 03-14-2022 18:45:50 CDT by Liz Nayak M.D. [id number]
--- NOTE | 2022-03-13 14:39 | XRR_ITS ---
PROCEDURE INFORMATION: Exam: XR Chest Exam date and time: 03/13/2022 2:45 PM Age: 56 years old Clinical indication: Shortness of breath; Additional info: SOB TECHNIQUE: Imaging protocol: Radiologic exam of the chest. Views: 1 view. COMPARISON: CR XR chest 2V* [id number] 03/13/2022 10:51 AM FINDINGS: Lungs: See Pleural spaces finding. Pleural spaces: Persistent small right pleural effusion with adjacent atelectasis. Pneumonia should be excluded clinically. Minimal left basilar atelectasis noted. The left lung is otherwise clear. Heart/Mediastinum: Stable cardiomediastinal silhouette. Bones/joints: Unremarkable. XR/XR chest 1V portable [id number] IMPRESSION: Persistent small right pleural effusion with adjacent atelectasis. Pneumonia should be excluded clinically.
[2022-03-13 15:47] LABS: Alanine Aminotransferase 19 U/L (0-41); Albumin Level 2.6 g/dL (3.5-5.2); Alkaline Phosphatase 80 IU/L (40-130); Anion Gap 13.8 (5-19); Aspartate Amino Transferase 17 U/L (0-40); Blood Urea Nitrogen 9 mg/dL (6-20); Carbon Dioxide 26 mmol/L (22-29); Chloride 102 mmol/L (98-107); Glucose 275 mg/dL (65-115); Osmolality Calculated 294 mOsm/kg (285-295); Potassium 3.8 mmol/L (3.5-5.1); Sodium 138 mmol/L (136-145); Total Bilirubin 0.3 mg/dL (0.15-1.2); Total Protein 6.6 g/dL (6.6-8.7)
--- NOTE | 2022-03-13 16:12 | PC.PHAR ---
pt states he takes care of his own medications-pt states ozempic 0.25mg q7d was dced when he was discharged on 03/07/22 ext med history shows last filled 02/12/22 56d/s discharge papers from 03/07/22 didnt show ozempic as dced just shows the kcl 10meq daily and celebrex 100mg bid as dced-pt states he is unsure if he has the trelegy inhaler rx filled 03/07/22 30d/s -notes are made in the pharmacy comments
[2022-03-13] MEDS: ipratropium-albuterol 3 mL Neb INHALATION (16:40)
== END 2022-03-13 17:55 | disposition home or self-care (01) ==
PROVIDERS: Emergency Provider Emergency Medicine; PCP Nurse Practitioner Family
DX: J44.0 Chronic obstructive pulmonary disease with (acute) lower respiratory infection (principal); J18.9 Pneumonia, unspecified organism; E86.9 Volume depletion, unspecified; Z79.82 Long term (current) use of aspirin; Z79.02 Long term (current) use of antithrombotics/antiplatelets; Z79.4 Long term (current) use of insulin; F17.210 Nicotine dependence, cigarettes, uncomplicated; E11.9 Type 2 diabetes mellitus without complications; E78.5 Hyperlipidemia, unspecified; I25.10 Atherosclerotic heart disease of native coronary artery without angina pectoris; I10 Essential (primary) hypertension; B37.0 Candidal stomatitis
CPT/HCPCS: 71045; 71046; 80053; 85025; 93005; 94640; 99285

== ENCOUNTER 2022-04-12 19:59 | Emergency (ER) | payer MEDICARE, MEDICAID, SELFPAY ==
[2022-04-12 20:01] VITALS: BP 122/78; PULSE 68; RESP 21; TEMP 36.6; O2SAT 93
--- NOTE | 2022-04-12 20:04 | ECG_ITS ---
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 Measurements Intervals [place] Rate: 67 P: 43 AL: 207 QRS: -70 QRSD: 140 T: 53 QT: 463 QTc: 489 Interpretive Statements SINUS RHYTHM LEFT AXIS DEVIATION [QRS AXIS < -30] LEFT BUNDLE BRANCH BLOCK [120+ ms QRS DURATION, 80+ ms Q/S IN V1/V2, 85+ ms R IN I/aVL/V5/V6] Compared to ECG 03/13/2022 14:17:25 No significant changes Electronically Signed On 04-14-2022 13:23:55 CDT by Rajesh Brasher M.D. [id number]
--- NOTE | 2022-04-12 20:27 | XRR_ITS ---
PROCEDURE INFORMATION: Exam: XR Chest Exam date and time: 04/12/2022 8:40 PM Age: 56 years old Clinical indication: Angina; Additional info: Cp TECHNIQUE: Imaging protocol: Radiologic exam of the chest. Views: 1 view. COMPARISON: CR XR chest 1V portable [id number] 03/13/2022 2:45 PM FINDINGS: Lungs: Minimal pulmonary vascular congestion. Bilateral right greater left mid to lower lung field atelectasis versus early infiltrate. Pleural spaces: Trace right pleural effusion. Heart/Mediastinum: Cardiomegaly. Bones/joints: Unremarkable. XR/XR chest 1V portable [id number] IMPRESSION: 1. Cardiomegaly. 2. Minimal pulmonary vascular congestion. 3. Bilateral right greater left mid to lower lung field atelectasis versus early infiltrate. 4. Trace right pleural effusion.
--- NOTE | 2022-04-12 20:28 | ED_ITS ---
HPI - Chest Pain General: Chief Complaint: Chest Pain Stated Complaint: CP Time Seen by Provider: 04/12/22 20:06 Source: patient History of Present Illness: 56-year-old male with a history of coronary disease, last stent was placed around 2 years ago. He notes he has had chest pain on and off for about a week. Today, he was walking to his truck when it s tarted. It radiated into his left arm. He was short of breath with the pain. He was not nauseated. He did not throw up. Pain is resolved after nitroglycerin given to him in the ambulance. Aspirin was given as well. He denies any increased leg swelling recently. Denies shortness of breath cur rently, although as above was present prior. MD complaint: chest pain Pertinent past history: coronary artery disease Onset (ago): day(s) (7) Timing of current episode: episodic Prior episodes: Yes Onset: during exertion Pain location: substernal Pain radiation: left arm Severity: moderate Quality: aching Relieving factors: nothing Exacerbating factors: nothing Associated symptoms: Reports dyspnea; Deny abdominal pain, diaphoresis, fever(s), leg edema, palpitations or vomiting Treatment prior to arrival: aspirin and nitroglycerin Review of Systems Const: Denies: fever(s) or diaphoresis ENMT: Denies: throat pain Card: Reports: chest pain; Denies: palpitations Resp: Reports: dyspnea and non-productive cough GI: Denies: abdominal pain or vomiting Musc: Denies: neck pain Neuro: Reports: headache(s) PFSH ED PFSH: Medical History Acute and chronic respiratory failure with hypoxia Anxiety and depression Atherosclerotic coronary vascular disease COPD (chronic obstructive pulmonary disease) Diabetes mellitus Dyslipidemia Encounter for counseling for care management of patient with chronic conditions and complex health needs using nurse-based model Environmental and seasonal allergies Essential hypertension GERD (gastroesophageal reflux disease) Hyperglycemia Hypothyroid Insomnia due to mental condition Leg cramps Osteoarthritis, chronic Pleuritic chest pain Pneumonia Sepsis Smoker Surgical History H/O knee surgery S/P coronary artery stent placement Social History Smoking and tobacco status: current every day smoker cigarettes Packs smoked per day: 3 Second hand smoke exposure: Yes Smoking risk assessment/counseling performed?: Yes Alcohol intake: never Desire information about alcohol rehabilitation?: No Counseling given: No Desire information about substance/drug rehabilitation?: No Counseling given: No Adopted: No Caregiver/support person: No Lives independently: Yes Household members: spouse Housing: House Marital status: service: No History of recent travel: No Current gender identity: Male Course Vital Signs: Vital signs: Vital Signs Temperature 97.9 F 04/12/22 20:01 Pulse Rate 68 04/12/22 20:01 Respiratory Rate 21 H 04/12/22 20:01 Blood Pressure 122/78 04/12/22 20:01 Pulse Oximetry 93 04/12/22 20:01 Oxygen Delivery Me thod 04/12/22 20:01 MDM - Chest Pain Medical Decision Making Chest pain was resolved on arrival. CBC is normal. BMP shows a sodium of 132, glucose 284. Otherwise is benign. Chest x-ray shows minimal vascular congestion and mild right greater than left lower lung field atelectasis versus the potential for early infiltrate. The patient does have a history of COPD I am reluctant to give him steroids due to his diabetes, but would treat this with doxycycline. His EKG shows a sinus rhythm with left bundle branch block, left axis deviation, normal ND intervals. There are no acute ST changes. His delta troponin is 0 at 2 hours. This patient evidently removed his own IV, and left prior to discharge. Lab Data : 04/12/22 20:10 04/12/22 20:10 Radiology Impressions Chest X-Ray 04/12/22 20:27 IMPRESSION: 1. Cardiomegaly. 2. Minimal pulmonary vascular congestion. 3. Bilateral right greater left mid to lower lung field atelectasis versus early infiltrate. 4. Trace right pleural effusion. Laboratory Results WBC 9.9 10^3/uL (4.0-10.0) 04/12/22 20:10 RBC 4.75 10^6/uL (4.1-5.3) 04/12/22 20:10 Hgb 14.4 g/dL (11.7-16.6) 04/12/22 20:10 Hct 42.0 % (42.0-52.0) 04/12/22 20:10 MCV 88.4 fl (80-94) 04/12/22 20:10 MCH 30.3 pg (28.0-34.0) 04/12/22 20:10 MCHC 34.3 g/dL (30.0-36.0) 04/12/22 20:10 RDW 12.3 % (12.1-15.1) 04/12/22 20:10 Plt Count 189 10^3/cmm (130-400) 04/12/22 20:10 MPV 11.6 fL (7.4-10.4) H 04/12/22 20:10 Neut % (Auto) 58.4 % 04/12/22 20:10 Lymph % (Auto) 31.7 % 04/12/22 20:10 [place] % (Auto) 6.5 % 04/12/22 20:10 Eos % (Auto) 2.5 % 04/12/22 20:10 Baso % (Auto) 0.5 % 04/12/22 20:10 Neut # (Auto) 5.80 10^3/uL (1.8-7.7) 04/12/22 20:10 Lymph # (Auto) 3.2 10^3/uL (0.8-4.8) 04/12/22 20:10 [place] # (Auto) 0.7 10^3/uL (0.2-0.9) 04/12/22 20:10 Eos # (Auto) 0.3 10^3/uL (0.0-0.8) 04/12/22 20:10 Baso # (Auto) 0.1 10^3/uL (0.0-0.1) 04/12/22 20:10 Nucleated RBC % (auto) 0 % 04/12/22 20:10 Nucleated RBCs # 0.0 /100WBC 04/12/22 20:10 Sodium 132 mmol/L (136-145) L 04/12/22 20:10 Potassium 3.7 mmol/L (3.5-5.1) 04/12/22 20:10 Chloride 101 mmol/L (98-107) 04/12/22 20:10 Carbon Dioxide 25 mmol/L (22-29) 04/12/22 20:10 Anion Gap 9.7 (5-19) 04/12/22 20:10 BUN 5 mg/dL (6-20) L 04/12/22 20:10 Creatinine 0.4 mg/dL (0.7-1.2) L 04/12/22 20:10 GFR Calculation 222.5 mL/min (90-130) H 04/12/22 20:10 Glucose 284 mg/dL (65-115) H 04/12/22 20:10 Calculated Osmolality 282 mOsm/kg (285-295) L 04/12/22 20:10 Calcium 8.6 mg/dL (8.5-10.5) 04/12/22 20:10 Total Bilirubin 0.3 mg/dL (0.15-1.2) 04/12/22 20:10 AST 16 U/L (0-40) 04/12/22 20:10 ALT 26 U/L (0-41) 04/12/22 20:10 Alkaline Phosphatase 99 U/L (40-130) 04/12/22 20:10 Creatine Kinase 33 U/L (39-308) L 04/12/22 20:10 Troponin T Baseline 6 ng/L (0-15) 04/12/22 20:10 Troponin T 120 Minute 6.00 ng/L (0-15) 04/12/22 22:15 Delta Troponin T 0 ABS# (0-10) 04/12/22 22:15 NT-Pro-B Natriuret Pep 317 pg/mL (0-125) H 04/12/22 20:10 Total Protein 6.7 g/dL (6.6-8.7) 04/12/22 20:10 Albumin 3.2 g/dL (3.5-5.2) L 04/12/22 20:10 Globulin 3.5 g/dL (1.3-4.6) 04/12/22 20:10 Discharge Plan Discharge Patient Disposition: Home Clinical Impression: Chest pain, Pneumonia Condition: Stable Prescriptions: New doxycycline hyclate 100 mg capsule 100 mg PO BID 7 Days Qty: 14 0RF No Action aspirin [Adult Low Dose Aspirin] 81 mg tablet,delayed release (DR/EC) 81 mg PO BEDTIME nystatin 100,000 unit/mL suspension 4 - 6 ml PO BID 14 Days Qty: 28 0RF Rx Instructions: swish and swallow (rx filled 03/13/22 14d/s) (DME) blood-glucose meter Misc See Rx Instructions .Route Qty: 1 0RF Rx Instructions: As directed (DME) lancets [BD Ultra Fine Lancets] 33 gauge misc See Rx Instructions .Route Qty: 100 3RF Rx Instructions: once daily budesonide-formoterol [Symbicort] 160-4.5 mcg/actuation HFA aerosol inhaler 2 puff inhalation BID Qty: 10.2 2RF (DME) Blood Glucose Test Strip See Rx Instructions .Route Qty: 100 3RF Rx Instructions: once daily (DME) nebulizer accessories Kit See Rx Instructions .Route Qty: 1 0RF Rx Instructions: As directed albuterol sulfate 2.5 mg /3 mL (0.083 %) solution for nebulization 2.5 mg inhalation QID PRN (Reason: shortness of breath or wheezing) Qty: 75 5RF (DME) compressor, for nebulizer Device See Rx Instructions .Route Qty: 1 0RF Rx Instructions: As directed nitroglycerin [Nitrostat] 0.4 mg Tablet, Sublingual 0.4 mg SUBLINGUAL Q5M PRN (Reason: Chest Pain) Rx Instructions: do not exceed 3 doses per episode citalopram [Celexa] 40 mg tablet 40 mg PO BEDTIME omega-3 fatty acids 1,000 mg capsule 1,000 mg PO BEDTIME cetirizine [Zyrtec] 10 mg tablet 10 mg PO BEDTIME clopidogrel 75 mg tablet 75 mg PO BEDTIME simvastatin 80 mg tablet 80 mg PO BEDTIME levothyroxine [Synthroid] 75 mcg tablet 75 mcg PO BEDTIME Rx Instructions: on an empty stomach for hypothyroidism omeprazole 20 mg capsule,delayed release(DR/EC) 20 mg PO BEDTIME Rx Instructions: 30 minutes before morning meal for gastroesophageal reflux disease metoprolol tartrate 25 mg tablet 25 mg PO BEDTIME zolpidem 10 mg tablet 10 mg PO BEDTIME insulin glargine [Lantus Solostar U-100 Insulin] 100 unit/mL (3 mL) insulin pen 10 unit SUBCUT QPM Qty: 15 4RF Trelegy Ellipta 100-62.5-25 mcg blister with device 1 inh inhalation DAILY Qty: 60 2RF albuterol sulfate 90 mcg/actuation HFA aerosol inhaler 2 puff inhalation Q8H PRN (Reason: shortness of breath or wheezing) Discharge Orders: Discharge ED (Routine); Ordered 04/12/22 Ordered By: Kelton Quiles Referrals: Shonna Glaser FNP-C [Primary Care Provider] - Patient Instructions: Chest Pain (ED), Pneumonia (ED) Activity Restrictions/Additional Instructions: Return for return of chest pain, shortness of breath, fever, worsening or concerning symptoms. Call your heart doctor on Friday, they may wish to see you, or perform more tests. Coding Level of Care Code ED Customer Support Technician for Augustus Calvillo
[2022-04-12 20:47] LABS: Basophils # 0.1 10^3/uL (0.0-0.1); Basophils % 0.5 %; Eosinophils # 0.3 10^3/uL (0.0-0.8); Eosinophils % 2.5 %; Hemoglobin 14.4 g/dL (11.7-16.6); Lymphocytes # 3.2 10^3/uL (0.8-4.8); Lymphocytes % 31.7 %; Mean Corpuscular HGB Conc 34.3 g/dL (30.0-36.0); Mean Corpuscular Hemoglobin 30.3 pg (28.0-34.0); Mean Corpuscular Volume 88.4 fl (80-94); Mean Platelet Volume 11.6 fL (7.4-10.4); Monocytes # 0.7 10^3/uL (0.2-0.9); Monocytes % 6.5 %; Neutrophils % 58.4 %; Nucleated Red Blood Cells % 0 %; Platelet Count 189 10^3/cmm (130-400); Red Blood Count 4.75 10^6/uL (4.1-5.3); Red Cell Distribution Width 12.3 % (12.1-15.1); White Blood Count 9.9 10^3/uL (4.0-10.0)
[2022-04-12 20:56] LABS: Troponin(5th) Baseline 6 ng/L (0-15)
[2022-04-12 21:03] LABS: Alanine Aminotransferase 26 U/L (0-41); Albumin Level 3.2 g/dL (3.5-5.2); Alkaline Phosphatase 99 U/L (40-130); Anion Gap 9.7 (5-19); Aspartate Amino Transferase 16 U/L (0-40); Blood Urea Nitrogen 5 mg/dL (6-20); Calcium 8.6 mg/dL (8.5-10.5); Carbon Dioxide 25 mmol/L (22-29); Chloride 101 mmol/L (98-107); Creatine Phosphokinase 33 U/L (39-308); Globulin 3.5 g/dL (1.3-4.6); Glomerular Filtration Rate 222.5 mL/min (90-130); Glucose 284 mg/dL (65-115); NT Pro B Type Natriuretic Pept 317 pg/mL (0-125); Osmolality Calculated 282 mOsm/kg (285-295); Potassium 3.7 mmol/L (3.5-5.1); Sodium 132 mmol/L (136-145); Total Bilirubin 0.3 mg/dL (0.15-1.2); Total Protein 6.7 g/dL (6.6-8.7)
[2022-04-12 22:52] LABS: Troponin 5 2HR Delta 0 ABS# (0-10)
== END 2022-04-12 22:57 | disposition home or self-care (01) ==
PROVIDERS: Emergency Provider Emergency Medicine; PCP Nurse Practitioner Family
DX: R07.9 Chest pain, unspecified (principal); J18.9 Pneumonia, unspecified organism; Z79.82 Long term (current) use of aspirin; Z79.02 Long term (current) use of antithrombotics/antiplatelets; Z79.4 Long term (current) use of insulin; J44.9 Chronic obstructive pulmonary disease, unspecified; E11.9 Type 2 diabetes mellitus without complications; E78.5 Hyperlipidemia, unspecified; I10 Essential (primary) hypertension; F17.210 Nicotine dependence, cigarettes, uncomplicated
CPT/HCPCS: 71045; 80053; 82550; 83880; 84484; 85025; 93005; 99285

== ENCOUNTER → 2022-06-06 11:06 | Outpatient (BNVA) | payer MEDICARE, MEDICAID, SELFPAY | PROVIDERS: PCP Nurse Practitioner Family; Visit Provider Nurse Practitioner Family | DX: E11.9 Type 2 diabetes mellitus without complications (principal); E78.5 Hyperlipidemia, unspecified; I10 Essential (primary) hypertension; F41.9 Anxiety disorder, unspecified; E03.9 Hypothyroidism, unspecified; K21.9 Gastro-esophageal reflux disease without esophagitis; F32.9 Major depressive disorder, single episode, unspecified; F51.05 Insomnia due to other mental disorder; M19.90 Unspecified osteoarthritis, unspecified site; F17.200 Nicotine dependence, unspecified, uncomplicated; I25.10 Atherosclerotic heart disease of native coronary artery without angina pectoris; J30.89 Other allergic rhinitis | CPT/HCPCS: 80053; 80061; 83036; 84443; 85025 ==

== ENCOUNTER → 2022-09-10 07:59 | Outpatient (BNVA) | payer MEDICARE, MEDICAID, SELFPAY | PROVIDERS: PCP Nurse Practitioner Family; Visit Provider Nurse Practitioner Family | DX: E11.9 Type 2 diabetes mellitus without complications (principal); K62.5 Hemorrhage of anus and rectum; I10 Essential (primary) hypertension; F41.9 Anxiety disorder, unspecified; E03.9 Hypothyroidism, unspecified; E78.5 Hyperlipidemia, unspecified; J30.89 Other allergic rhinitis; F32.9 Major depressive disorder, single episode, unspecified; I25.10 Atherosclerotic heart disease of native coronary artery without angina pectoris; M19.90 Unspecified osteoarthritis, unspecified site; F51.05 Insomnia due to other mental disorder; F17.200 Nicotine dependence, unspecified, uncomplicated; K21.9 Gastro-esophageal reflux disease without esophagitis | CPT/HCPCS: 80053; 80061; 83036; 84443; 85025 ==

== ENCOUNTER → 2022-12-16 08:48 | Outpatient (BNVA) | payer MEDICARE, MEDICAID, SELFPAY | PROVIDERS: PCP Nurse Practitioner Family; Visit Provider Nurse Practitioner Family | DX: E11.9 Type 2 diabetes mellitus without complications (principal); E78.5 Hyperlipidemia, unspecified | CPT/HCPCS: 80053; 80061; 83036; 84443; 85025 ==

== ENCOUNTER → 2023-03-21 08:05 | Outpatient (BNVA) | payer MEDICARE, MEDICAID, SELFPAY | PROVIDERS: PCP Nurse Practitioner Family; Visit Provider Nurse Practitioner Family | DX: E78.5 Hyperlipidemia, unspecified (principal); E03.9 Hypothyroidism, unspecified; E11.9 Type 2 diabetes mellitus without complications; H65.90 Unspecified nonsuppurative otitis media, unspecified ear | CPT/HCPCS: 80053; 80061; 83036; 84443; 85025 ==

== ENCOUNTER → 2023-06-02 14:31 | Outpatient (BNVA) | payer MEDICARE, MEDICAID, SELFPAY | PROVIDERS: PCP Nurse Practitioner Family; Visit Provider Nurse Practitioner Family | DX: E11.9 Type 2 diabetes mellitus without complications (principal); E78.5 Hyperlipidemia, unspecified; M25.561 Pain in right knee; S89.91XA Unspecified injury of right lower leg, initial encounter; M17.11 Unilateral primary osteoarthritis, right knee; X58.XXXA Exposure to other specified factors, initial encounter | CPT/HCPCS: 73562; 80053; 80061; 83036; 83721; 84443; 85025 ==

== ENCOUNTER 2023-09-18 06:51 | Outpatient (CLI) | payer MEDICARE, MEDICAID, SELFPAY ==
--- NOTE | 2023-09-18 | MR_ITS ---
WS: [id number] MRI RIGHT KNEE NONCONTRAST TECHNIQUE: Axial PD, coronal PD fat sat, coronal PD, sagittal PD, and sagittal PD fat-sat images obta katelynd. CLINICAL INFORMATION: M25.561 - Pain in right knee COMPARISON: MRI 2014 FINDINGS: Distal quadriceps and patellar tendons are intact. Hypertrophic patella. Somewhat diminutive ACL appe ars intact similar to the prior examination. PCL appears intact. Severe tricompartmental arthritis ad vanced for a patient this age. Grade 3-4 chondromalacia medial and lateral joint compartments. Small suprapatellar effusion. Chronic thinning of the medial and lateral meniscus. Repair of the previously described medial meniscus bucket-handle tear. Chronic intrasubstance signal abnormality involving th e medial and lateral meniscus. No acute appearing meniscal tears. Irregular and shallow trochlear groove with grade III chondromalacia patella. Previously described la teral subluxation has improved. Medial and lateral patellar retinaculum appear intact. Recommend myrna elation for patellar instability. Medial and lateral collateral ligaments are intact. Normal popliteus. Head of the fibula is normal. N ormal popliteal fossa. IMPRESSION: 1. Advanced tricompartment arthritis progressed since 2014 2. Repair of the previous bucket-handle tear medial meniscus. No acute appearing meniscal tears toda y. 3. Grade 3-4 chondromalacia medial and lateral joint compartments. Subchondral edema in the lateral femoral condyle. 4. Grade III chondromalacia patella with shallow appearing trochlear groove. Recommend correlation f or patellar instability. 5. Somewhat diminutive ACL appears intact and unchanged from previous. Normal PCL. 6. Normal medial and lateral collateral ligaments. Outbridge grading: grade III: partial-thickness cartilage loss with focal ulceration
== END 2023-09-18 06:52 | disposition home or self-care (01) ==
LOC: RAD 06:52
PROVIDERS: PCP Nurse Practitioner Family; Visit Provider Nurse Practitioner Family
DX: M17.11 Unilateral primary osteoarthritis, right knee (principal); M22.41 Chondromalacia patellae, right knee; R93.6 Abnormal findings on diagnostic imaging of limbs
CPT/HCPCS: 73721

== ENCOUNTER → 2023-11-17 08:05 | Outpatient (BNVA) | payer MEDICARE, MEDICAID, SELFPAY | PROVIDERS: PCP Nurse Practitioner Family; Visit Provider Specialist | DX: M25.561 Pain in right knee (principal); G89.29 Other chronic pain; Z46.89 Encounter for fitting and adjustment of other specified devices | CPT/HCPCS: 73560; 73565; 97760; 99204; L1812 ==

== ENCOUNTER 2023-11-17 11:06 | Outpatient (CLI) | payer MEDICARE, MEDICAID, SELFPAY | END 2023-11-17 11:07 | disposition home or self-care (01) | LOC: SPT 11:07 | PROVIDERS: PCP Nurse Practitioner Family; Visit Provider Specialist | DX: Z46.89 Encounter for fitting and adjustment of other specified devices (principal); M25.561 Pain in right knee | CPT/HCPCS: 97760; 99204; L1812 ==

== ENCOUNTER → 2024-03-25 08:35 | Outpatient (BNVA) | payer MEDICARE, MEDICAID, SELFPAY | PROVIDERS: PCP Nurse Practitioner Family; Visit Provider Nurse Practitioner Family | DX: E11.9 Type 2 diabetes mellitus without complications (principal); E78.5 Hyperlipidemia, unspecified | CPT/HCPCS: 80053; 80061; 83036; 84443; 85025 ==

== ENCOUNTER 2024-07-04 19:56 | Observation (INO) | payer MEDICARE, MEDICAID, SELFPAY ==
--- NOTE | 2024-07-04 19:57 | XRR_ITS ---
PROCEDURE INFORMATION: Exam: XR Chest Exam date and time: 07/04/2024 8:42 PM Age: 59 years old Clinical indication: Chest pressure; Patient HX: Chest pain; SOB TECHNIQUE: Imaging protocol: Radiologic exam of the chest. Views: 1 view. COMPARISON: CR XR chest 1V portable [id number] 04/12/2022 8:40 PM FINDINGS: Lungs: Emphysematous changes. Pleural spaces: Trace right pleural effusion. Heart/Mediastinum: Mild cardiomegaly. Bones/joints: Unremarkable. XR/XR chest 1V portable [id number] IMPRESSION: 1. Negative for infiltrate. 2. Emphysematous changes. 3. Trace right pleural effusion. 4. Mild cardiomegaly.
--- NOTE | 2024-07-04 20:02 | ECG_ITS ---
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 Measurements Intervals [place] Rate: 103 P: 79 RI: 198 QRS: 259 QRSD: 140 T: 56 QT: 386 QTc: 507 Interpretive Statements SINUS TACHYCARDIA WITH OCCASIONAL SUPRAVENTRICULAR PREMATURE COMPLEXES RIGHT AXIS DEVIATION [QRS AXIS > 100] INTRAVENTRICULAR CONDUCTION DELAY [130+ ms QRS DURATION] POSSIBLE ANTERIOR MYOCARDIAL INFARCTION , OF INDETERMINATE AGE [30 ms Q WAVE IN V3/V4, OR R < 0.2 mV IN V4] Compared to ECG 04/12/2022 20:04:38 Right-axis deviation now present Intraventricular conduction delay now present Myocardial infarct finding now present Sinus rhythm no longer present Left-axis deviation no longer present Left bundle-branch block no longer present Electronically Signed On 07-06-2024 21:46:09 ER NURSE by Rajesh Brasher M.D. [email or web address]
[2024-07-04 20:07] VITALS: BP 154/84; PULSE 100; RESP 18; TEMP 36.7; O2SAT 100; BMI 24.3
[2024-07-04 20:35] LABS: Basophils % 0.4 %; Eosinophils # 0.2 10^3/uL (0.0-0.8); Eosinophils % 3.4 %; Hematocrit 45.4 % (37-53); Lymphocytes # 1.7 10^3/uL (0.8-4.8); Lymphocytes % 25.3 %; Mean Corpuscular HGB Conc 34.4 g/dL (30-55); Mean Corpuscular Hemoglobin 29.8 pg (27-33); Mean Corpuscular Volume 86.6 fl (82-101); Mean Platelet Volume 11.5 fL (7.4-10.4); Monocytes # 0.6 10^3/uL (0.2-0.9); Monocytes % 8.7 %; Neutrophils # 4.22 10^3/uL (1.8-7.7); Neutrophils % 61.9 %; Nucleated Red Blood Cells % 0 %; Platelet Count 240 10^3/cmm (157-399); Red Blood Count 5.24 10^6/uL (3.85-5.65); White Blood Count 6.81 10^3/uL (3.29-11.43)
[2024-07-04 20:47] LABS: INR 0.96 (0.8-1.2); Partial Thromboplastin Time 25.9 SECONDS (23.9-36.7)
[2024-07-04 20:54] LABS: Troponin(5th) Baseline 19 ng/L (0-15)
[2024-07-04 21:04] LABS: Alanine Aminotransferase 11 U/L (0-41); Albumin Level 4.1 g/dL (3.5-5.2); Alkaline Phosphatase 102 U/L (40-130); Anion Gap 13.1 (5-19); Aspartate Amino Transferase 9 U/L (0-40); Blood Urea Nitrogen 14 mg/dL (6-20); Carbon Dioxide 27 mmol/L (22-29); Chloride 106 mmol/L (98-107); Creatine Phosphokinase 49 U/L (39-308); Creatinine Clr Calc Pharmacy 135.6698; Globulin 2.4 g/dL (1.3-4.6); Glomerular Filtration Rate 137.9 mL/min (90-130); Glucose 385 mg/dL (65-115); Lipase 51 U/L (13-60); NT Pro B Type Natriuretic Pept 334 pg/mL (0-125); Osmolality Calculated 312 mOsm/kg (285-295); Potassium 3.1 mmol/L (3.5-5.1); Sodium 143 mmol/L (136-145); Total Bilirubin 0.4 mg/dL (0.15-1.2); Total Protein 6.5 g/dL (6.6-8.7)
[2024-07-04 21:15] VITALS: BP 146/92; PULSE 93; RESP 16; O2SAT 99
[2024-07-04 21:23] LABS: Bilirubin Urine Negative (Negative); Blood Urine Negative (Negative); Glucose Urine UA 3+ (Normal); Ketones Urine Negative (Negative); Leukocyte Esterase Urine Negative (Negative); Nitrate Urine Negative (Negative); Protein Urine Negative (Negative); Urine Appearance Clear (CLEAR); Urine Color Yellow (Yellow); pH Urine 5.5 (5-7)
[2024-07-04 21:27] LABS: Add Urine Microscopic? YES; Bacteria Urine None Seen /hpf; Hyaline Casts Urine 0-4 /lpf; RBC Urine 0-2 /hpf (0-2); Squamous Epithelial Cell Urine 0-5 /hpf (0-5); WBC Urine 0-5 /hpf (0-5)
[2024-07-04 21:32] LABS: Specific Gravity, Urine 1.042 (1.005-1.030)
--- NOTE | 2024-07-04 21:40 | W.ED.CHESTPA ---
HPI - Chest Pain General: Chief Complaint: Chest Pain Stated Complaint: CP SOB Time Seen by Provider: 07/04/24 20:59 History of Present Illness: 59-year-old male smoker with coronary artery disease (endorses 8 stents), hyperlipidemia, hypertension, poorly controlled diabetes, with a family history of heart disease who presents the emergency department endorsing that he is had increasing frequency, severity and duration of chest discomfort over the last few weeks. He has used nitro so frequently that he is actually out of nitroglycerin. Patient does also suffer from anxiety but does not seem to think this is the cause. He uses oxygen at home intermittently when he feels he needs it. He is 100% on room air here. He denies any orthopnea or lower extremity edema. No hemoptysis, purulent sputum, fever, pleuritic pain. Last stent was approximately 2 and half years ago. Patient reports he has not had any angiography or stress test since then. Patient was having chest discomfort when he arrived but reports it is resolved at the time of exam. Associated symptoms: Deny abdominal pain, fever(s), nausea, syncope or vomiting Related Data Home Medications Medication Instructions Recorded Confirmed aspirin 81 mg tablet,delayed 81 mg PO BEDTIME 09/06/19 05/06/24 release (Adult Low Dose Aspirin) nitroglycerin 0.4 mg sublingual 0.4 mg sublingual Q5M PRN Chest 03/05/22 05/06/24 tablet (Nitrostat) Pain Previous Rx's Medication Instructions Recorded blood-glucose meter #1 ea 11/07/21 blood sugar diagnostic (Blood #100 ea 02/12/22 Glucose Test strips) lancets 33 gauge (BD Ultra Fine #100 ea 02/12/22 Lancets) albuterol sulfate 2.5 mg/3 mL 2.5 mg (3 mL) inhalation QID PRN 03/11/22 (0.083 %) solution for nebulization shortness of breath or wheezing #75 mL compressor, for nebulizer #1 ea 03/11/22 nebulizer accessories #1 ea 03/11/22 omeprazole 20 mg capsule,delayed 20 mg PO BEDTIME #30 caps 06/06/23 release pen needle, diabetic 31 gauge x #100 ea 06/06/23 3/16 (Easy Comfort Pen [place]) hinged knee brace, right #1 ea 11/17/23 clopidogrel 75 mg tablet 75 mg PO BEDTIME #30 tabs 05/06/24 levothyroxine 50 mcg tablet 50 mcg PO BEDTIME #30 tabs 05/06/24 metformin 500 mg tablet,extended 500 mg PO DAILY #30 tabs 05/06/24 release 24 hr metoprolol succinate 25 mg 25 mg PO DAILY #30 tabs 05/06/24 tablet,extended release 24 hr simvastatin 80 mg tablet 80 mg PO BEDTIME #30 tabs 05/06/24 sodium chloride 1,000 mg soluble 1,000 mg PO DAILY #30 tabs 05/06/24 tablet tirzepatide 2.5 mg/0.5 mL 2.5 mg (0.5 mL) SUBCUT .week #2 mL 05/06/24 subcutaneous pen injector (Juan Joseunbrianro) Allergies Allergy/AdvReac Type Severity Reaction Status Date / Time No Known Allergies Allergy Verified 05/06/24 15:29 Review of Systems General: Reports: 10 or more systems reviewed and unremarkable except in HPI and below Const: Denies: fever(s), chills or body aches Eyes: Denies: change in vision ENMT: Denies: throat pain Card: Denies: syncope Resp: Denies: productive cough GI: Denies: abdominal pain, nausea, vomiting or diarrhea : Denies: flank pain, dysuria or urinary frequency Musc: Denies: neck pain, back pain, extremity pain or extremity swelling Skin/Breast: Denies: rash or erythema Neuro: Denies: headache(s), numbness in extremities, weakness in extremities, lack of coordination or difficulty walking [facility] PFSH: Medical History (Updated 05/09/24 @ 22:19 by JACQUELIN Decker) Diabetes mellitus with hyperglycemia, without long-term current use of insulin Hyperglycemia Acute and chronic respiratory failure with hypoxia Pleuritic chest pain Pneumonia Sepsis COPD (chronic obstructive pulmonary disease) Smoker Leg cramps Atherosclerotic coronary vascular disease Osteoarthritis, chronic Hypothyroid Insomnia due to mental condition Diabetes mellitus Essential hypertension GERD (gastroesophageal reflux disease) Anxiety and depression Environmental and seasonal allergies Dyslipidemia Surgical History S/P coronary artery stent placement H/O knee surgery Family History (Updated 05/06/24 @ 15:54 by JACQUELIN Decker) Mother Diabetes Father Hypertension Denies family history of Cancer Social History Smoking and tobacco/nicotine status: current every day tobacco/nicotine user cigarettes Packs smoked per day: 3 Second hand smoke exposure: Yes Alcohol intake: never Substance/Drug Use: never Adopted: No Caregiver/support person: No Lives independently: Yes Household members: spouse Housing: House Marital status: service: No Do you think of yourself as: Straight/Heterosexual Current gender identity: Male Physical Exam Const: COMMON NORMALS: no limitations, alert and well nourished EXAM LIMITATIONS: no altered mental status HENMT: COMMON NORMALS: normocephalic, atraumatic and external ears normal HEAD & SCALP: normocephalic and atraumatic EXTERNAL EAR: Yes external ears normal MOUTH: no muffled voice Eye: COMMON NORMALS: EOMs intact bilaterally, conjunctivae normal and no scleral icterus CONJUNCTIVA: Yes conjunctivae normal Neck/C-Spine: COMMON NORMALS: no JVD GENERAL: Yes normal visual inspection and Yes trachea midline Resp: COMMON NORMALS: normal respiratory effort (Mild tachypnea noted during our conversation), No use of accessory muscles and clear to auscultation bilaterally AUSCULTATION: clear to auscultation bilaterally Cardio: COMMON NORMALS: no JVD and regular rhythm RHYTHM: regular rhythm GI: COMMON NORMALS: Soft to palpation and non-tender PALPATION: Yes Soft to palpation and No Guarding due to palpation present (GI) Extremity: COMMON NORMALS: normal to inspection Neuro: COMMON NORMALS: moves all extremities, no focal motor deficits and no sensory deficits noted SENSORIUM/ORIENTATION: Yes alert SPEECH: speech normal Psych: COMMON NORMALS: mental status grossly normal, Normal thought process present, cooperative and speech normal; negative for normal affect (Suspect he has some anxiety) SPEECH: Yes normal speech THOUGHT PROCESS: Normal thought process present Skin: COMMON NORMALS: no rashes or lesions noted, turgor normal and no jaundice GENERAL SKIN EXAM: no rashes or lesions noted and turgor normal Course Vital Signs: Vital signs: Vital Signs Temperature 98.0 F 07/04/24 20:07 Pulse Rate 93 07/04/24 21:15 Respiratory Rate 16 07/04/24 21:15 Blood Pressure 146/92 12/01/24 21:15 Pulse Oximetry 99 07/04/24 21:15 Oxygen Delivery Me thod Room Air 07/04/24 21:15 MDM - Chest Pain Medical Decision Making EP interpretation: EKG shows a sinus tachycardia with a ventricular rate of 103, first-degree AV block, right axis deviation, left bundle branch block that does not meet Sgarbossa criteria. Chest x-ray 1 view. Possible small right pleural effusion noted with costophrenic blunting. Cardiomediastinal silhouette normal. Some changes of emphysema noted. No focal infiltrates. Differential diagnosis includes COPD, chest wall pain, anxiety, unstable angina, acute coronary syndrome, pulmonary hypertension, CHF, PE (low suspicion), other. Troponin 19. This is increased compared to previous but not significantly elevated. Heart score is high. Patient has not had any provocative testing or echo recently. Discussed options with patient. He is willing to be admitted to help sort out whether this is cardiac or not. Chronic hyperglycemia. No signs of DKA. Renal function okay. Hemoglobin within normal limits. Discussed with Dr. Garibay for admission to the [facility]. Lab Data 07/04/24 20:18 07/04/24 20:18 Radiology Impressions Chest X-Ray 07/04/24 19:57 IMPRESSION: 1. Negative for infiltrate. 2. Emphysematous changes. 3. Trace right pleural effusion. 4. Mild cardiomegaly. Laboratory Results WBC 6.81 10^3/uL (3.29-11.43) 07/04/24 20:18 RBC 5.24 10^6/uL (3.85-5.65) 07/04/24 20:18 Hgb 15.60 g/dL (11.27-16.99) 07/04/24 20:18 Hct 45.4 % (37-53) 07/04/24 20:18 MCV 86.6 fl (82-101) 07/04/24 20:18 MCH 29.8 pg (27-33) 07/04/24 20:18 MCHC 34.4 g/dL (30-55) 07/04/24 20:18 RDW 12.0 % (12.1-15.1) L 07/04/24 20:18 Plt Count 240 10^3/cmm (157-399) 07/04/24 20:18 MPV 11.5 fL (7.4-10.4) H 07/04/24 20:18 Neut % (Auto) 61.9 % 07/04/24 20:18 Lymph % (Auto) 25.3 % 07/04/24 20:18 [place] % (Auto) 8.7 % 07/04/24 20:18 Eos % (Auto) 3.4 % 07/04/24 20:18 Baso % (Auto) 0.4 % 07/04/24 20:18 Neut # (Auto) 4.22 10^3/uL (1.8-7.7) 07/04/24 20:18 Lymph # (Auto) 1.7 10^3/uL (0.8-4.8) 07/04/24 20:18 [place] # (Auto) 0.6 10^3/uL (0.2-0.9) 07/04/24 20:18 Eos # (Auto) 0.2 10^3/uL (0.0-0.8) 07/04/24 20:18 Baso # (Auto) 0.0 10^3/uL (0.0-0.1) 07/04/24 20:18 Nucleated RBC % (auto) 0 % 07/04/24 20:18 Nucleated RBCs # 0.0 /100WBC 07/04/24 20:18 PT 13.10 SECONDS (12.1-14.9) 07/04/24 20:18 INR 0.96 (0.8-1.2) 07/04/24 20:18 APTT 25.9 SECONDS (23.9-36.7) 07/04/24 20:18 Sodium 143 mmol/L (136-145) 07/04/24 20:18 Potassium 3.1 mmol/L (3.5-5.1) L 07/04/24 20:18 Chloride 106 mmol/L (98-107) 07/04/24 20:18 Carbon Dioxide 27 mmol/L (22-29) 07/04/24 20:18 Anion Gap 13.1 (5-19) 07/04/24 20:18 BUN 14 mg/dL (6-20) 07/04/24 20:18 Creatinine 0.6 mg/dL (0.7-1.2) L 07/04/24 20:18 GFR Calculation 137.9 mL/min (90-130) H 07/04/24 20:18 Glucose 385 mg/dL (65-115) H 07/04/24 20:18 Calculated Osmolality 312 mOsm/kg (285-295) H 07/04/24 20:18 Calcium 9.0 mg/dL (8.5-10.5) 07/04/24 20:18 Total Bilirubin 0.4 mg/dL (0.15-1.2) 07/04/24 20:18 AST 9 U/L (0-40) 07/04/24 20:18 ALT 11 U/L (0-41) 07/04/24 20:18 Alkaline Phosphatase 102 U/L (40-130) 07/04/24 20:18 Creatine Kinase 49 U/L (39-308) 07/04/24 20:18 Troponin T Baseline 19 ng/L (0-15) H 07/04/24 20:18 NT-Pro-B Natriuret Pep 334 pg/mL (0-125) H 07/04/24 20:18 Total Protein 6.5 g/dL (6.6-8.7) L 07/04/24 20:18 Albumin 4.1 g/dL (3.5-5.2) 07/04/24 20:18 Globulin 2.4 g/dL (1.3-4.6) 07/04/24 20:18 Lipase 51 U/L (13-60) 07/04/24 20:18 Urine Color Yellow (Yellow) 07/04/24 21:00 Urine Appearance Clear (CLEAR) 07/04/24 21:00 Urine pH 5.5 (5-7) 07/04/24 21:00 Ur Specific [place] 1.042 (1.005-1.030) H 07/04/24 21:00 Urine Protein Negative (Negative) 07/04/24 21:00 Urine Glucose (UA) 3+ (Normal) H 07/04/24 21:00 Urine Ketones Negative (Negative) 07/04/24 21:00 Urine Blood Negative (Negative) 07/04/24 21:00 Urine Nitrate Negative (Negative) 07/04/24 21:00 Urine Bilirubin Negative (Negative) 07/04/24 21:00 Urine Urobilinogen 1.0 mg/dL (Negative) 07/04/24 21:00 Ur Leukocyte Esterase Negative (Negative) 07/04/24 21:00 Urine RBC 0-2 /hpf (0-2) 07/04/24 21:00 Urine WBC 0-5 /hpf (0-5) 07/04/24 21:00 Ur Squamous Epith Cells 0-5 /hpf (0-5) 07/04/24 21:00 Amorphous Sediment Not Reportable 07/04/24 21:00 Urine Bacteria None seen /hpf (NONE) 07/04/24 21:00 Hyaline Casts 0-4 /lpf H 07/04/24 21:00 All radiology interpretation(s) finalized by discharge ED provider radiology interpretation(s): Normal cardiomediastinal silhouette, changes of emphysema, mild blunting of the right more than left costophrenic angles Discharge Plan Discharge Prescriptions: No Action aspirin [Adult Low Dose Aspirin] 81 mg tablet,delayed release (DR/EC) 81 mg PO BEDTIME (DME) blood-glucose meter Misc See Rx Instructions .Route Qty: 1 0RF Rx Instructions: As directed (DME) lancets [BD Ultra Fine Lancets] 33 gauge misc See Rx Instructions .Route Qty: 100 3RF Rx Instructions: once daily (DME) Blood Glucose Test Strip See Rx Instructions .Route Qty: 100 3RF Rx Instructions: once daily (DME) pen needle, diabetic [Easy Comfort Pen [place]] 31 gauge x 3/16 needle See Rx Instructions .Route Qty: 100 3RF Rx Instructions: As directed omeprazole 20 mg capsule,delayed release(DR/EC) 20 mg PO BEDTIME Qty: 30 2RF (DME) hinged knee brace, right See Rx Instructions .Route .MEDSUPPLY Qty: 1 0RF Rx Instructions: As directed levothyroxine 50 mcg tablet 50 mcg PO BEDTIME Qty: 30 2RF Rx Instructions: on an empty stomach for hypothyroidism metoprolol succinate 25 mg tablet extended release 24 hr 25 mg PO DAILY Qty: 30 0RF clopidogrel 75 mg tablet 75 mg PO BEDTIME Qty: 30 2RF simvastatin 80 mg tablet 80 mg PO BEDTIME Qty: 30 2RF metformin 500 mg tablet extended release 24 hr 500 mg PO DAILY Qty: 30 2RF Mounjaro 2.5 mg/0.5 mL pen injector 2.5 mg SUBCUT .week Qty: 2 0RF Rx Instructions: plan increase 4 week sodium chloride 1,000 mg tablet,soluble 1,000 mg PO DAILY Qty: 30 2RF (DME) nebulizer accessories Kit See Rx Instructions .Route Qty: 1 0RF Rx Instructions: As directed albuterol sulfate 2.5 mg /3 mL (0.083 %) solution for nebulization 2.5 mg inhalation QID PRN (Reason: shortness of breath or wheezing) Qty: 75 5RF (DME) compressor, for nebulizer Device See Rx Instructions .Route Qty: 1 0RF Rx Instructions: As directed nitroglycerin [Nitrostat] 0.4 mg Tablet, Sublingual 0.4 mg SUBLINGUAL Q5M PRN (Reason: Chest Pain) Rx Instructions: do not exceed 3 doses per episode Coding Level of Care Code ED Process Control Board Operator for Augustus Calvillo
--- NOTE | 2024-07-04 21:57 | ECG_ITS ---
[employer] Test Date: 2024-07-04 Pat Name: Sahil Jarquin Department: Room: Gender: Male Performance Reporter: : 1965 Requested By: Kelton Baxter Order Number: [id number] Yaya MD: Rajesh Brasher M.D. Measurements Intervals Gary Rate: 91 P: 54 MD: 184 QRS: -47 QRSD: 140 T: 106 QT: 421 QTc: 520 Interpretive Statements SINUS RHYTHM WITH OCCASIONAL SUPRAVENTRICULAR PREMATURE COMPLEXES LEFT AXIS DEVIATION [QRS AXIS < -30] LEFT BUNDLE BRANCH BLOCK [120+ ms QRS DURATION, 80+ ms Q/S IN V1/V2, 85+ ms R IN I/aVL/V5/V6] Compared to ECG 07/04/2024 20:02:32 Left-axis deviation now present Left bundle-branch block now present Sinus tachycardia no longer present Right-axis deviation no longer present Intraventricular conduction delay no longer present Myocardial infarct finding no longer present Electronically Signed On 07-06-2024 22:01:40 BOOKKEEPER by Rajesh Brasher M.D. [email or web address]
[2024-07-04 22:00] VITALS: BP 125/69; PULSE 104; PULSE 97; RESP 20; O2SAT 100
[2024-07-04 22:22] LABS: Troponin 5 2HR 18.59 ng/L (0-15); Troponin 5 2HR Delta -0.41 ABS# (0-10)
[2024-07-04 22:25] VITALS: BP 125/69; PULSE 97; O2SAT 100
[2024-07-04 23:00] VITALS: BP 154/97; PULSE 89; RESP 17; TEMP 36.7
[2024-07-04 23:09] VITALS: BP 148/94; PULSE 103; RESP 19; TEMP 36.7; O2SAT 99
--- NOTE | 2024-07-05 00:48 | P.HP_ITS ---
Providers/Chief Complaint 2 Admitting Physician: Sharla Garibay MD Primary Care Provider: Marychuy Elizabeth, CLINICAL SUPPORT MANAGER-C Chief Complaint: CP SOB History of Present Illness Sahil Jarquin is a 59 year old male who carries history of COPD, uses 3 L at baseline, coronary disease multiple stents, presented with chief complaint of chest pain which has been progressively increasing over the past 2-3 weeks. He has been taking several pills of nitroglycerin over the past week which gives temporary relied but symptoms have persisted. c/o palpitations +, c/o dyspnea + He is an uncontrolled diabetic with most recent HbA1c at 13.6 from March 2024. EKG and troponin series today unremarkable. Chest x-ray negative for any infiltrates. There is a trace right pleural effusion, which appears to be seen even on x-rays dating back to 2021. Does not appear he has had any CT of the chest. He had presented with similar complaints of chest pain in 2021 and was deemed to have pleuritic chest pain which resolved with use of NSAIDs. Effusion was thought to be related to pneumonia.He states pain today is not similar to pleuritic pain in the past. Review of Systems 2 General: Reports: 10 or more systems reviewed and unremarkable except in HPI and below Const: Denies: fever(s), chills or body aches Eyes: Denies: change in vision, blurry vision or photophobia ENMT: Reports: hoarseness; Denies: throat pain, enlarged tonsils, odynophagia or nasal congestion Card: Denies: chest pain, palpitations, irregular heart rhythm, edema, swelling of feet/ankles, lightheadedness, pre-syncope, dyspnea on exertion or orthopnea Resp: Denies: dyspnea, productive cough, non-productive cough, wheezing, stridor, pain on inspiration, change in phlegm color, hemoptysis or chest congestion GI: Denies: abdominal pain, nausea, vomiting, hematemesis, coffee ground emesis, dysphagia, heartburn, diarrhea, constipation, GI cramping, change in stool character, hematochezia or melena : Denies: flank pain, dysuria, urinary frequency, urinary urgency, urinary hesitancy or hematuria Musc: Denies: neck pain, back pain, extremity pain, joint swelling, joint warmth or deformity Neuro: Denies: headache(s), numbness in extremities, weakness in extremities, sensory changes, difficulty walking, frequent falls, dizziness, vertigo, behavioral changes, Slurred speech present or seizure-like activity Psych: Denies: anxiety, depression, suicidal ideation or homicidal ideation Endo: Denies: polyuria, polydipsia, tired all the time, cold intolerance or hot flashes Jay/Lymph: Denies: easy bruising or easy bleeding Medications/Allergies Home Medications Medication Instructions Recorded Confirmed Last Taken Type aspirin 81 mg tablet,delayed 81 mg PO BEDTIME 09/06/19 05/06/24 1 Week Ago History release (Adult Low Dose Aspirin) ~02/26/22 blood-glucose meter #1 ea 11/07/21 05/06/24 Unknown Rx blood sugar diagnostic (Blood #100 ea 02/12/22 05/06/24 Unknown Rx Glucose Test strips) lancets 33 gauge (BD Ultra Fine #100 ea 02/12/22 05/06/24 Unknown Rx Lancets) nitroglycerin 0.4 mg sublingual 0.4 mg sublingual Q5M PRN Chest 03/05/22 05/06/24 Unknown History tablet (Nitrostat) Pain albuterol sulfate 2.5 mg/3 mL 2.5 mg (3 mL) inhalation QID PRN 03/11/22 05/06/24 Unknown Rx (0.083 %) solution for nebulization shortness of breath or wheezing #75 mL compressor, for nebulizer #1 ea 03/11/22 05/06/24 Unknown Rx nebulizer accessories #1 ea 03/11/22 05/06/24 Unknown Rx omeprazole 20 mg capsule,delayed 20 mg PO BEDTIME #30 caps 06/06/23 05/06/24 Unknown Rx release pen needle, diabetic 31 gauge x #100 ea 06/06/23 05/06/24 Unknown Rx 3/16 (Easy Comfort Pen [place]) hinged knee brace, right #1 ea 11/17/23 05/06/24 Unknown Rx clopidogrel 75 mg tablet 75 mg PO BEDTIME #30 tabs 05/06/24 05/06/24 Unknown Rx levothyroxine 50 mcg tablet 50 mcg PO BEDTIME #30 tabs 05/06/24 05/06/24 Unknown Rx metformin 500 mg tablet,extended 500 mg PO DAILY #30 tabs 05/06/24 05/06/24 Unknown Rx release 24 hr metoprolol succinate 25 mg 25 mg PO DAILY #30 tabs 05/06/24 05/06/24 Unknown Rx tablet,extended release 24 hr simvastatin 80 mg tablet 80 mg PO BEDTIME #30 tabs 05/06/24 05/06/24 Unknown Rx sodium chloride 1,000 mg soluble 1,000 mg PO DAILY #30 tabs 05/06/24 05/06/24 Unknown Rx tablet tirzepatide 2.5 mg/0.5 mL 2.5 mg (0.5 mL) SUBCUT .week #2 mL 05/06/24 05/06/24 Unknown Rx subcutaneous pen injector (Mounjaro) Allergies Allergy/AdvReac Type Severity Reaction Status Date / Time No Known Allergies Allergy Verified 05/06/24 15:29 PFSH Acute 2 PFSH: Medical History Diabetes mellitus with hyperglycemia, without long-term current use of insulin Hyperglycemia Acute and chronic respiratory failure with hypoxia Pleuritic chest pain Pneumonia Sepsis COPD (chronic obstructive pulmonary disease) Smoker Leg cramps Atherosclerotic coronary vascular disease Osteoarthritis, chronic Hypothyroid Insomnia due to mental condition Diabetes mellitus Essential hypertension GERD (gastroesophageal reflux disease) Anxiety and depression Environmental and seasonal allergies Dyslipidemia Surgical History S/P coronary artery stent placement H/O knee surgery Family History Mother Diabetes Father Hypertension Denies family history of Cancer Social History Smoking and tobacco/nicotine status: current every day tobacco/nicotine user cigarettes Packs smoked per day: 3 Second hand smoke exposure: Yes Alcohol intake: never Substance/Drug Use: never Adopted: No Caregiver/support person: No Lives independently: Yes Household members: spouse Housing: House Marital status: service: No Do you think of yourself as: Straight/Heterosexual Current gender identity: Male Vitals/I&O/Wt Last Vital Signs Temp 98.0 F 07/04/24 23:09 Pulse 103 H 07/04/24 23:09 Resp 19 H 07/04/24 23:09 BP 148/94 07/04/24 23:09 Pulse Ox 99 07/04/24 23:09 O2 Del Method Room Air 07/04/24 23:09 Weight last 48 hrs Weight 74.843 kg Weight 74.843 kg Physical Exam 2 Narrative: General: No acute distress, AO x3 HEENT: PERRLA, pupils bilaterally equal and reactive, pallors not present Chest: Normal vesicular breath sounds, no added sounds, equal good air entry bilaterally CVS: S1-S2 regular, no murmurs, no tachycardia, no gallops, no rubs Abdomen: Soft, nontender, no organomegaly, bowel sounds present Neuro: No focal deficits, no facial deformity, AO x3, power 5/5 in all limbs Data 07/04/24 20:18 07/04/24 20:18 Other Labs: Radiology Impressions Chest X-Ray 07/04/24 19:57 IMPRESSION: 1. Negative for infiltrate. 2. Emphysematous changes. 3. Trace right pleural effusion. 4. Mild cardiomegaly. Laboratory Results WBC 6.81 10^3/uL (3.29-11.43) 07/04/24 20:18 RBC 5.24 10^6/uL (3.85-5.65) 07/04/24 20:18 Hgb 15.60 g/dL (11.27-16.99) 07/04/24 20:18 Hct 45.4 % (37-53) 07/04/24 20:18 MCV 86.6 fl (82-101) 07/04/24 20:18 MCH 29.8 pg (27-33) 07/04/24 20:18 MCHC 34.4 g/dL (30-55) 07/04/24 20:18 RDW 12.0 % (12.1-15.1) L 07/04/24 20:18 Plt Count 240 10^3/cmm (157-399) 07/04/24 20:18 MPV 11.5 fL (7.4-10.4) H 07/04/24 20:18 Neut % (Auto) 61.9 % 07/04/24 20:18 Lymph % (Auto) 25.3 % 07/04/24 20:18 [place] % (Auto) 8.7 % 07/04/24 20:18 Eos % (Auto) 3.4 % 07/04/24 20:18 Baso % (Auto) 0.4 % 07/04/24 20:18 Neut # (Auto) 4.22 10^3/uL (1.8-7.7) 07/04/24 20:18 Lymph # (Auto) 1.7 10^3/uL (0.8-4.8) 07/04/24 20:18 [place] # (Auto) 0.6 10^3/uL (0.2-0.9) 07/04/24 20:18 Eos # (Auto) 0.2 10^3/uL (0.0-0.8) 07/04/24 20:18 Baso # (Auto) 0.0 10^3/uL (0.0-0.1) 07/04/24 20:18 Nucleated RBC % (auto) 0 % 07/04/24 20:18 Nucleated RBCs # 0.0 /100WBC 07/04/24 20:18 PT 13.10 SECONDS (12.1-14.9) 07/04/24 20:18 INR 0.96 (0.8-1.2) 07/04/24 20:18 APTT 25.9 SECONDS (23.9-36.7) 07/04/24 20:18 Sodium 143 mmol/L (136-145) 07/04/24 20:18 Potassium 3.1 mmol/L (3.5-5.1) L 07/04/24 20:18 Chloride 106 mmol/L (98-107) 07/04/24 20:18 Carbon Dioxide 27 mmol/L (22-29) 07/04/24 20:18 Anion Gap 13.1 (5-19) 07/04/24 20:18 BUN 14 mg/dL (6-20) 07/04/24 20:18 Creatinine 0.6 mg/dL (0.7-1.2) L 07/04/24 20:18 GFR Calculation 137.9 mL/min (90-130) H 07/04/24 20:18 Glucose 385 mg/dL (65-115) H 07/04/24 20:18 Calculated Osmolality 312 mOsm/kg (285-295) H 07/04/24 20:18 Calcium 9.0 mg/dL (8.5-10.5) 07/04/24 20:18 Total Bilirubin 0.4 mg/dL (0.15-1.2) 07/04/24 20:18 AST 9 U/L (0-40) 07/04/24 20:18 ALT 11 U/L (0-41) 07/04/24 20:18 Alkaline Phosphatase 102 U/L (40-130) 07/04/24 20:18 Creatine Kinase 49 U/L (39-308) 07/04/24 20:18 Troponin T Baseline 19 ng/L (0-15) H 07/04/24 20:18 Troponin T 120 Minute 18.59 ng/L (0-15) H 07/04/24 21:59 Delta Troponin T -0.41 ABS# (0-10) L 07/04/24 21:59 NT-Pro-B Natriuret Pep 334 pg/mL (0-125) H 07/04/24 20:18 Total Protein 6.5 g/dL (6.6-8.7) L 07/04/24 20:18 Albumin 4.1 g/dL (3.5-5.2) 07/04/24 20:18 Globulin 2.4 g/dL (1.3-4.6) 07/04/24 20:18 Lipase 51 U/L (13-60) 07/04/24 20:18 Urine Color Yellow (Yellow) 07/04/24 21:00 Urine Appearance Clear (CLEAR) 07/04/24 21:00 Urine pH 5.5 (5-7) 07/04/24 21:00 Ur Specific [place] 1.042 (1.005-1.030) H 07/04/24 21:00 Urine Protein Negative (Negative) 07/04/24 21:00 Urine Glucose (UA) 3+ (Normal) H 07/04/24 21:00 Urine Ketones Negative (Negative) 07/04/24 21:00 Urine Blood Negative (Negative) 07/04/24 21:00 Urine Nitrate Negative (Negative) 07/04/24 21:00 Urine Bilirubin Negative (Negative) 07/04/24 21:00 Urine Urobilinogen 1.0 mg/dL (Negative) 07/04/24 21:00 Ur Leukocyte Esterase Negative (Negative) 07/04/24 21:00 Urine RBC 0-2 /hpf (0-2) 07/04/24 21:00 Urine WBC 0-5 /hpf (0-5) 07/04/24 21:00 Ur Squamous Epith Cells 0-5 /hpf (0-5) 07/04/24 21:00 Amorphous Sediment Not Reportable 07/04/24 21:00 Urine Bacteria None seen /hpf (NONE) 07/04/24 21:00 Hyaline Casts 0-4 /lpf H 07/04/24 21:00 A&P Assessment and plan (1) Chest pain: 59-year-old male with past medical history as noted above, several cardiac risk factors including uncontrolled diabetes mellitus, hypertension, chronic smoking who is presenting today to the emergency room with 2 weeks of intermittent chest pain. Chest x-ray shows sinus rhythm with left bundle branch block in leads V1 V2. There does appear to have been some new changes compared to 2021. Baseline troponin at 19, 2-hour downtrending at 18, awaiting 6-hour trend. Check echocardiogram, unable to find any echocardiogram On file at this time. Differentials at this time include unstable angina, if 6-hour troponin remains downtrending to stable, will proceed with stress test in the morning. Screening D-dimer to assess for possible PE as an alternate explanation. No clinical signs of heart failure at this time. Continue home doses of ASA, statin, plavix, metoprolol in the interim. Attestations 2 Medical Necessity Statement*: less than 2 midnight stay is currently anticipated Coding Level of Care Code Acute Code for Chg Fwd Moderate MDM includes number and complexity of problems actively addressed during encounter, amount and/or complexity of data reviewed/ordered and described risk of complication, morbidity or mortality of management as documented Diagnoses Chest pain R07.9
--- NOTE | 2024-07-05 00:58 | ECG_ITS ---
[facility] Test Date: 2024-07-13 Pat Name: Sahil Jarquin Department: Room: 107 Gender: Male Groundsman: : 1965 Requested By: Sharla Garibay Order Number: [id number] Yaya MD: SCOTTY LOPEZ Interpretive Statements Lung unchanged pre/post procedure; Intraprocedure shortess of breath; Symptoms resoled by discharge [id number] [id number] MTDD
[2024-07-05 03:02] LABS: Estmated Average Glucose 258; Hemoglobin A1C 10.6 % (4.0-6.0)
[2024-07-05 03:03] LABS: D Dimer 0.35 ug/mLFEU (0-0.59)
[2024-07-05 03:04] LABS: Chol HDL Ratio 4.08 mg/dL (1.0-5.00); Cholesterol 151 mg/dL (0-200); HDL Cholesterol 37 mg/dL (60-100); LDL Cholesterol Calculated 72 mg/dL (50-129); LDL HDL Ratio 1.95 RATIO (0.00-3.22); Triglycerides 210 mg/dL (0-150)
--- NOTE | 2024-07-05 03:06 | ECG_ITS ---
[facility] Date: 2024-07-05 Pat Name: Sahil Jarquin Department: Room: 107 Gender: Male Fleet Assistant: : 1965 Requested By: Kelton Baxter Order Number: [id number] Yaya MD: Rajesh Brasher M.D. Measurements Intervals [place] Rate: 99 P: 53 ME: 193 QRS: -51 QRSD: 138 T: 117 QT: 411 QTc: 528 Interpretive Statements SINUS RHYTHM WITH OCCASIONAL VENTRICULAR PREMATURE COMPLEXES LEFT AXIS DEVIATION [QRS AXIS < -30] LEFT BUNDLE BRANCH BLOCK [120+ ms QRS DURATION, 80+ ms Q/S IN V1/V2, 85+ ms R IN I/aVL/V5/V6] Compared to ECG 07/04/2024 22:00:11 Ventricular premature complex(es) now present Electronically Signed On 07-06-2024 22:01:35 EGG SETTER by Rajesh Brasher M.D. [id number]
[2024-07-05 03:08] LABS: Troponin 5 6HR 17.27 ng/L (0-15)
[2024-07-05 03:10] LABS: Troponin 5 6HR Delta -1.73 ng/L (0-12)
[2024-07-05 04:00] VITALS: BP 138/88; PULSE 100; RESP 15; TEMP 36.6; O2SAT 100
[2024-07-05] MEDS: acetaminophen 325 mg Tablet 650 MG PO (04:09)
[2024-07-05] MEDS: levothyroxine 50 mcg Tablet PO (05:29)
[2024-07-05 05:45] VITALS: PULSE 99
[2024-07-05 06:12] LABS: Glucose Point of Care 277 mg/dL (70-110)
--- NOTE | 2024-07-05 06:33 | PC.NURSE ---
patient states he needs something to calm his nerves if he is going to stay here or he will be dressed and ready to go, contacted Dr Garibay and received order for po xanax X1
--- NOTE | 2024-07-05 06:43 | PC.NURSE ---
patient came to nurses station and asked if someone would take his IV out, this nurse went to patient room and told him the doctor had ordered xanax for him, he shook his head and said do you want to take this out or do you want me to? , nurse went to get gauze and when returned IV had been removed per patient, applied gauze and tape and asked if he would sign an AMA form and patient said no, stated It's not you, it's this hospital, they were supposed to have operated on this knee patient walked out, Dr Garibay notified
== END 2024-07-05 06:35 | disposition home or self-care (01) ==
LOC: ER 22:00 → CSU 22:09
PROVIDERS: Emergency Medicine; Admitting Provider Student in an Organized Health Care Education/Training Program; Emergency Provider Emergency Medicine; PCP Nurse Practitioner; Visit Provider Student in an Organized Health Care Education/Training Program
DX: J90 Pleural effusion, not elsewhere classified (principal); J44.9 Chronic obstructive pulmonary disease, unspecified; Z99.81 Dependence on supplemental oxygen; I25.10 Atherosclerotic heart disease of native coronary artery without angina pectoris; Z95.5 Presence of coronary angioplasty implant and graft; Z79.82 Long term (current) use of aspirin; E11.65 Type 2 diabetes mellitus with hyperglycemia; E03.9 Hypothyroidism, unspecified; I10 Essential (primary) hypertension; E78.5 Hyperlipidemia, unspecified; F17.210 Nicotine dependence, cigarettes, uncomplicated
CPT/HCPCS: 36415; 36416; 71045; 80053; 80061; 81001; 82550; 82962; 83036; 83690; 83880; 84484; 85025; 85378; 85610; 85730; 93005; 99285; A9270; G0378

== ENCOUNTER 2024-07-12 12:28 | Observation (INO) | payer MEDICARE, MEDICAID, SELFPAY ==
[2024-07-12] VITALS (30 sets, daily range): BP systolic 104–128; BP diastolic 60–90; PULSE 93–105; RESP 14–21; TEMP 36.4; O2SAT 95–100; BMI 24.3
--- NOTE | 2024-07-12 12:30 | XR_ITS ---
WS: [id number] Exam: XR chest 1V portable [id number] Date/Time of Exam: 07/12/2024 12:37 PM Reason For Exam: dyspnea/cough Comparison 07/04/2024. The lungs are fully inflated and clear. Mild hyperinflation. Normal cardiomediastinal silhouette. No pleural effusions. Coronary artery stent noted. Bony structures are intact. XR/XR chest 1V portable [id number] IMPRESSION: 1. No acute cardiopulmonary finding. Mild hyperinflation.
--- NOTE | 2024-07-12 12:32 | ECG_ITS ---
[facility] Test Date: 2024-07-12 Pat Name: Sahil Jarquin Department: Room: Gender: Male Trim Setter: : 1965 Requested By: Vin Rivas Order Number: [id number] Reading MD: SCOTTY LOPEZ Measurements Intervals [place] Rate: 102 P: 49 [place]: 195 QRS: 56 QRSD: 129 T: 27 QT: 398 QTc: 519 Interpretive Statements SINUS TACHYCARDIA WITH FREQUENT SUPRAVENTRICULAR PREMATURE COMPLEXES POSSIBLE ANTERIOR MYOCARDIAL INFARCTION , OF INDETERMINATE AGE [30 ms Q WAVE IN V3/V4, OR R < 0.2 mV IN V4] Compared to ECG 07/05/2024 03:06:44 Myocardial infarct finding now present Sinus rhythm no longer present Ventricular premature complex(es) no longer present Left-axis deviation no longer present Left bundle-branch block no longer present Electronically Signed On 07-12-2024 16:07:00 SUPERVISOR URANIUM PROCESSING by SCOTTY LOPEZ [id number]
[2024-07-12 12:59] LABS: Basophils % 0.4 %; Eosinophils # 0.4 10^3/uL (0.0-0.8); Eosinophils % 4.2 %; Hematocrit 44.2 % (37-53); Lymphocytes # 2.4 10^3/uL (0.8-4.8); Lymphocytes % 22.8 %; Mean Corpuscular HGB Conc 34.6 g/dL (30-55); Mean Corpuscular Hemoglobin 29.7 pg (27-33); Mean Corpuscular Volume 85.7 fl (82-101); Mean Platelet Volume 11.7 fL (7.4-10.4); Monocytes # 0.6 10^3/uL (0.2-0.9); Monocytes % 5.9 %; Neutrophils # 6.91 10^3/uL (1.8-7.7); Neutrophils % 66.2 %; Nucleated Red Blood Cells % 0 %; Platelet Count 234 10^3/cmm (157-399); Red Blood Count 5.16 10^6/uL (3.85-5.65); Red Cell Distribution Width 11.9 % (12.1-15.1); White Blood Count 10.44 10^3/uL (3.29-11.43)
[2024-07-12 13:15] LABS: Alanine Aminotransferase 20 U/L (0-41); Albumin Level 3.6 g/dL (3.5-5.2); Alkaline Phosphatase 112 U/L (40-130); Anion Gap 14.2 (5-19); Aspartate Amino Transferase 12 U/L (0-40); Blood Urea Nitrogen 13 mg/dL (6-20); Calcium 9.2 mg/dL (8.5-10.5); Carbon Dioxide 25 mmol/L (22-29); Chloride 103 mmol/L (98-107); Creatinine Clr Calc Pharmacy 162.8037; Globulin 2.3 g/dL (1.3-4.6); Glomerular Filtration Rate 170.2 mL/min (90-130); Glucose 358 mg/dL (65-115); Osmolality Calculated 301 mOsm/kg (285-295); Potassium 4.2 mmol/L (3.5-5.1); Sodium 138 mmol/L (136-145); Total Bilirubin 0.4 mg/dL (0.15-1.2); Total Protein 5.9 g/dL (6.6-8.7); Troponin(5th) Baseline 13 ng/L (0-15)
--- NOTE | 2024-07-12 13:19 | ED_ITS ---
HPI - Chest Pain 2 General: Chief Complaint: ER Hold Stated Complaint: cp x 3 weeks Time Seen by Provider: 07/12/24 12:29 History of Present Illness: 59-year-old male presents emergency room complaining of intermittent chest pain. He has been having it for the last 3 weeks comes on when at rest. Patient has history of diabetes mellitus hypertension and tobacco use. No shortness of breath or diaphoresis. No known history of coronary artery disease. He is not previously had any stents bypass or stress testing. He was recently in the emergency room and was going to be admitted for complete rule out of [place] and possible stress test he opted to leave from the emergency room. He is continue to have symptoms since that time. Associated symptoms: Deny abdominal pain, dyspnea or fever(s) Related Data Home Medications Medication Instructions Recorded Confirmed nitroglycerin 0.4 mg sublingual 0.4 mg sublingual Q5M PRN Chest 03/05/22 07/12/24 tablet (Nitrostat) Pain levothyroxine 50 mcg tablet 50 mcg PO BEDTIME 07/12/24 07/12/24 Previous Rx's Medication Instructions Recorded blood-glucose meter #1 ea 11/07/21 blood sugar diagnostic (Blood #100 ea 02/12/22 Glucose Test strips) lancets 33 gauge (BD Ultra Fine #100 ea 02/12/22 Lancets) albuterol sulfate 2.5 mg/3 mL 2.5 mg (3 mL) inhalation QID PRN 03/11/22 (0.083 %) solution for nebulization shortness of breath or wheezing #75 mL compressor, for nebulizer #1 ea 03/11/22 nebulizer accessories #1 ea 03/11/22 omeprazole 20 mg capsule,delayed 20 mg PO BEDTIME #30 caps 06/06/23 release pen needle, diabetic 31 gauge x #100 ea 06/06/23 3/16 (Easy Comfort Pen [place]) hinged knee brace, right #1 ea 11/17/23 metformin 500 mg tablet,extended 500 mg PO DAILY #30 tabs 05/06/24 release 24 hr metoprolol succinate 25 mg 25 mg PO DAILY #30 tabs 05/06/24 tablet,extended release 24 hr sodium chloride 1,000 mg soluble 1,000 mg PO DAILY #30 tabs 05/06/24 tablet tirzepatide 2.5 mg/0.5 mL 2.5 mg (0.5 mL) SUBCUT .week #2 mL 05/06/24 subcutaneous pen injector (Nathan) aspirin 81 mg tablet,delayed 81 mg PO BEDTIME #30 tabs 07/15/24 release (Adult Low Dose Aspirin) clopidogrel 75 mg tablet 75 mg PO BEDTIME #30 tabs 07/15/24 simvastatin 80 mg tablet 80 mg PO BEDTIME #30 tabs 07/15/24 Allergies Allergy/AdvReac Type Severity Reaction Status Date / Time No Known Allergies Allergy Verified 05/06/24 15:29 Review of Systems 2 Const: Denies: fever(s) or chills Card: Reports: chest pain Resp: Denies: dyspnea GI: Denies: abdominal pain : Denies: dysuria, urinary frequency or urinary urgency Musc: Denies: neck pain or back pain Skin/Breast: Denies: rash PFSH ED 2 PFSH: Medical History Diabetes mellitus with hyperglycemia, without long-term current use of insulin Hyperglycemia Acute and chronic respiratory failure with hypoxia Pleuritic chest pain Pneumonia Sepsis COPD (chronic obstructive pulmonary disease) Smoker Leg cramps Atherosclerotic coronary vascular disease Osteoarthritis, chronic Hypothyroid Insomnia due to mental condition Diabetes mellitus Essential hypertension GERD (gastroesophageal reflux disease) Anxiety and depression Environmental and seasonal allergies Dyslipidemia Surgical History S/P coronary artery stent placement H/O knee surgery Family History Mother Diabetes Father Hypertension Denies family history of Cancer Social History Smoking and tobacco/nicotine status: current every day tobacco/nicotine user cigarettes Packs smoked per day: 3 Second hand smoke exposure: Yes Alcohol intake: never Substance/Drug Use: never Adopted: No Caregiver/support person: No Lives independently: Yes Household members: spouse Housing: House Marital status: service: No Do you think of yourself as: Straight/Heterosexual Current gender identity: Male Physical Exam 2 Const: COMMON NORMALS: no acute distress GENERAL APPEARANCE: cooperative and comfortable ORIENTATION/CONSCIOUSNESS: Yes awake, Yes oriented to person, Yes oriented to place and Yes oriented to time HENMT: COMMON NORMALS: normocephalic, atraumatic and hearing grossly normal bilaterally HEAD & SCALP: normocephalic and atraumatic Resp: COMMON NORMALS: normal respiratory effort, No retractions, No use of accessory muscles and clear to auscultation bilaterally AUSCULTATION: clear to auscultation bilaterally Cardio: COMMON NORMALS: regular rate, regular rhythm and No murmurs present (Cardio) RATE: regular rate RHYTHM: regular rhythm GI: COMMON NORMALS: Soft to palpation and No hepatosplenomegaly present A USCULTATION: Yes normoactive bowel sounds PALPATION: Yes Soft to palpation, No Tenderness to palpation present (GI), No Guarding due to palpation present (GI) and Yes No hepatosplenomegaly present Extremity: COMMON NORMALS: normal to inspection, capillary refill normal, no clubbing, cyanosis or edema, no calf tenderness and no pedal edema Neuro: SENSORIUM/ORIENTATION: Yes oriented to person, Yes oriented to place and Yes oriented to time Skin: COMMON NORMALS: no rashes or lesions noted GENERAL SKIN EXAM: no rashes or lesions noted Course 2 Vital Signs: Vital signs: Vital Signs Temperature 98.0 F 07/15/24 07:21 Pulse Rate 87 07/15/24 07:21 Respiratory Rate 20 H 07/15/24 07:21 Blood Pressure 116/71 07/15/24 07:21 Pulse Oximetry 97 07/15/24 07:21 Oxygen Delivery Me thod Room Air 07/15/24 07:21 MDM - Chest Pain Medical Decision Making Patient known coronary artery disease patient is having unstable angina with recurrent episodes of chest pain. They do sound somewhat concerning. He did have significant relief with nitro today. This tropes did not show significant change however Given his ongoing symptoms and they are escalating will admit the patient. Discussed with hospitalist orders written. Consult cardiology. EKG today shows left bundle branch block which was present previously Lab Data 07/15/24 03:34 07/15/24 03:34 Radiology Impressions Chest X-Ray 07/12/24 12:30 IMPRESSION: 1. No acute cardiopulmonary finding. Mild hyperinflation. Laboratory Results WBC 10.44 10^3/uL (3.29-11.43) 07/12/24 12:45 RBC 5.16 10^6/uL (3.85-5.65) 07/12/24 12:45 Hgb 15.30 g/dL (11.27-16.99) 07/12/24 12:45 Hct 44.2 % (37-53) 07/12/24 12:45 MCV 85.7 fl (82-101) 07/12/24 12:45 MCH 29.7 pg (27-33) 07/12/24 12:45 MCHC 34.6 g/dL (30-55) 07/12/24 12:45 RDW 11.9 % (12.1-15.1) L 07/12/24 12:45 Plt Count 234 10^3/cmm (157-399) 07/12/24 12:45 MPV 11.7 fL (7.4-10.4) H 07/12/24 12:45 Neut % (Auto) 66.2 % 07/12/24 12:45 Lymph % (Auto) 22.8 % 07/12/24 12:45 [place] % (Auto) 5.9 % 07/12/24 12:45 Eos % (Auto) 4.2 % 07/12/24 12:45 Baso % (Auto) 0.4 % 07/12/24 12:45 Neut # (Auto) 6.91 10^3/uL (1.8-7.7) 07/12/24 12:45 Lymph # (Auto) 2.4 10^3/uL (0.8-4.8) 07/12/24 12:45 [place] # (Auto) 0.6 10^3/uL (0.2-0.9) 07/12/24 12:45 Eos # (Auto) 0.4 10^3/uL (0.0-0.8) 07/12/24 12:45 Baso # (Auto) 0.0 10^3/uL (0.0-0.1) 07/12/24 12:45 Nucleated RBC % (auto) 0 % 07/12/24 12:45 Nucleated RBCs # 0.0 /100WBC 07/12/24 12:45 D-Dimer 0.33 ug/mLFEU (0-0.59) 07/12/24 12:45 Sodium 138 mmol/L (136-145) 07/12/24 12:45 Potassium 4.2 mmol/L (3.5-5.1) 07/12/24 12:45 Chloride 103 mmol/L (98-107) 07/12/24 12:45 Carbon Dioxide 25 mmol/L (22-29) 07/12/24 12:45 Anion Gap 14.2 (5-19) 07/12/24 12:45 BUN 13 mg/dL (6-20) 07/12/24 12:45 Creatinine 0.5 mg/dL (0.7-1.2) L 07/12/24 12:45 GFR Calculation 170.2 mL/min (90-130) H 07/12/24 12:45 Glucose 358 mg/dL (65-115) H 07/12/24 12:45 Calculated Osmolality 301 mOsm/kg (285-295) H 07/12/24 12:45 Calcium 9.2 mg/dL (8.5-10.5) 07/12/24 12:45 Total Bilirubin 0.4 mg/dL (0.15-1.2) 07/12/24 12:45 AST 12 U/L (0-40) 07/12/24 12:45 ALT 20 U/L (0-41) 07/12/24 12:45 Alkaline Phosphatase 112 U/L (40-130) 07/12/24 12:45 Troponin T Baseline 13 ng/L (0-15) 07/12/24 12:45 Troponin T 120 Minute 12.99 ng/L (0-15) 07/12/24 14:31 Delta Troponin T -0.01 ABS# (0-10) L 07/12/24 14:31 Total Protein 5.9 g/dL (6.6-8.7) L 07/12/24 12:45 Albumin 3.6 g/dL (3.5-5.2) 07/12/24 12:45 Globulin 2.3 g/dL (1.3-4.6) 07/12/24 12:45 All radiology interpretation(s) finalized by discharge Discharge Plan Discharge Patient Disposition: Admitted As Inpatient Admit Provider: Sharla Garibay Clinical Impression: Unstable angina, Atherosclerotic coronary vascular disease, Smoker, COPD (chronic obstructive pulmonary disease), Diabetes mellitus with hyperglycemia, without long-term current use of insulin Condition: Stable Coding Level of Care Code ED Field Representative/Health Education for Chg Fwd
[2024-07-12 13:49] LABS: D Dimer 0.33 ug/mLFEU (0-0.59)
[2024-07-12] MEDS: nitroglycerin 1 gm/inch oint Pkt 1 INCH TOPICAL (13:50)
--- NOTE | 2024-07-12 14:44 | ECG_ITS ---
[facility] Test Date: 2024-07-12 Pat Name: Sahil Jarquin Department: Room: Gender: Male School Speech Language Pathologist: : 1965 Requested By: Vin Rivas Order Number: [id number] Reading MD: SCOTTY LOPEZ Measurements Intervals [place] Rate: 99 P: 52 MN: 200 QRS: -32 QRSD: 128 T: 59 QT: 397 QTc: 511 Interpretive Statements SINUS RHYTHM LEFT AXIS DEVIATION [QRS AXIS < -30] POSSIBLE ANTERIOR MYOCARDIAL INFARCTION , OF INDETERMINATE AGE [30 ms Q WAVE IN V3/V4, OR R < 0.2 mV IN V4] Compared to ECG 07/12/2024 12:32:22 Left-axis deviation now present Sinus tachycardia no longer present Myocardial infarct finding still present Electronically Signed On 07-12-2024 16:13:43 INSTRUMENTATION TECHNOLOGIST by SCOTTY LOPEZ [id number]
[2024-07-12 14:59] LABS: Troponin 5 2HR 12.99 ng/L (0-15)
[2024-07-12 15:00] LABS: Troponin 5 2HR Delta -0.01 ABS# (0-10)
--- NOTE | 2024-07-12 17:57 | P.HP_ITS ---
Providers/Chief Complaint 2 Admitting Physician: Sharla Garibay MD Primary Care Provider: Marychuy Elizabeth, [employer] Chief Complaint: cp x 3 weeks History of Present Illness Sahil Jarquin is a 59 year old male who carries history of COPD, uses 3 L at baseline, coronary disease multiple stents, presented with chief complaint of chest pain which has been progressively increasing over the past 2-3 weeks. He has been taking several pills of nitroglycerin over the past week which gives temporary relied but symptoms have persisted. c/o palpitations +, c/o dyspnea + He is an uncontrolled diabetic with most recent HbA1c at 13.6 from March 2024. troponin series with normal baseline troponin today, . Chest x-ray negative for any infiltrates. There is a trace right pleural effusion, which appears to be seen even on x-rays dating back to 2021. He had presented with similar complaints of chest pain in 2021 and was deemed to have pleuritic chest pain which resolved with use of NSAIDs. He had presented to the ER on 07/05 with similar complaints and was admitted for a stress test however he had elected to leave [facility]. He returns today for persisting chest discomfort. Review of Systems 2 General: Reports: 10 or more systems reviewed and unremarkable except in HPI and below Const: Denies: fever(s), chills or body aches Eyes: Denies: change in vision, blurry vision or photophobia ENMT: Reports: hoarseness; Denies: throat pain, enlarged tonsils, odynophagia or nasal congestion Card: Denies: chest pain, palpitations, irregular heart rhythm, edema, swelling of feet/ankles, lightheadedness, pre-syncope, dyspnea on exertion or orthopnea Resp: Denies: dyspnea, productive cough, non-productive cough, wheezing, stridor, pain on inspiration, change in phlegm color, hemoptysis or chest congestion GI: Denies: abdominal pain, nausea, vomiting, hematemesis, coffee ground emesis, dysphagia, heartburn, diarrhea, constipation, GI cramping, change in stool character, hematochezia or melena : Denies: flank pain, dysuria, urinary frequency, urinary urgency, urinary hesitancy or hematuria Musc: Denies: neck pain, back pain, extremity pain, joint swelling, joint warmth or deformity Neuro: Denies: headache(s), numbness in extremities, weakness in extremities, sensory changes, difficulty walking, frequent falls, dizziness, vertigo, behavioral changes, Slurred speech present or seizure-like activity Psych: Denies: anxiety, depression, suicidal ideation or homicidal ideation Endo: Denies: polyuria, polydipsia, tired all the time, cold intolerance or hot flashes Jay/Lymph: Denies: easy bruising or easy bleeding Medications/Allergies Home Medications Medication Instructions Recorded Confirmed Last Taken Type aspirin 81 mg tablet,delayed 81 mg PO BEDTIME 09/06/19 07/12/24 07/11/24 History release (Adult Low Dose Aspirin) blood-glucose meter #1 ea 11/07/21 07/12/24 Unknown Rx blood sugar diagnostic (Blood #100 ea 02/12/22 07/12/24 Unknown Rx Glucose Test strips) lancets 33 gauge (BD Ultra Fine #100 ea 02/12/22 07/12/24 Unknown Rx Lancets) nitroglycerin 0.4 mg sublingual 0.4 mg sublingual Q5M PRN Chest 03/05/22 07/12/24 Unknown History tablet (Nitrostat) Pain albuterol sulfate 2.5 mg/3 mL 2.5 mg (3 mL) inhalation QID PRN 03/11/22 07/12/24 Unknown Rx (0.083 %) solution for nebulization shortness of breath or wheezing #75 mL compressor, for nebulizer #1 ea 03/11/22 07/12/24 Unknown Rx nebulizer accessories #1 ea 03/11/22 07/12/24 Unknown Rx omeprazole 20 mg capsule,delayed 20 mg PO BEDTIME #30 caps 06/06/23 07/12/24 07/11/24 Rx release pen needle, diabetic 31 gauge x #100 ea 06/06/23 07/12/24 Unknown Rx 3/16 (Easy Comfort Pen [place]) hinged knee brace, right #1 ea 11/17/23 07/12/24 Unknown Rx clopidogrel 75 mg tablet 75 mg PO BEDTIME #30 tabs 05/06/24 07/12/24 07/11/24 Rx metformin 500 mg tablet,extended 500 mg PO DAILY #30 tabs 05/06/24 07/12/24 07/11/24 Rx release 24 hr metoprolol succinate 25 mg 25 mg PO DAILY #30 tabs 05/06/24 07/12/24 07/11/24 Rx tablet,extended release 24 hr simvastatin 80 mg tablet 80 mg PO BEDTIME #30 tabs 05/06/24 07/12/24 07/11/24 Rx sodium chloride 1,000 mg soluble 1,000 mg PO DAILY #30 tabs 05/06/24 07/12/24 07/11/24 Rx tablet tirzepatide 2.5 mg/0.5 mL 2.5 mg (0.5 mL) SUBCUT .week #2 mL 05/06/24 07/12/24 07/11/24 Rx subcutaneous pen injector (Catro) levothyroxine 50 mcg tablet 50 mcg PO BEDTIME 07/12/24 07/12/24 07/11/24 History Allergies Allergy/AdvReac Type Severity Reaction Status Date / Time No Known Allergies Allergy Verified 05/06/24 15:29 PFSH Acute 2 PFSH: Medical History Diabetes mellitus with hyperglycemia, without long-term current use of insulin Hyperglycemia Acute and chronic respiratory failure with hypoxia Pleuritic chest pain Pneumonia Sepsis COPD (chronic obstructive pulmonary disease) Smoker Leg cramps Atherosclerotic coronary vascular disease Osteoarthritis, chronic Hypothyroid Insomnia due to mental condition Diabetes mellitus Essential hypertension GERD (gastroesophageal reflux disease) Anxiety and depression Environmental and seasonal allergies Dyslipidemia Surgical History S/P coronary artery stent placement H/O knee surgery Family History Mother Diabetes Father Hypertension Denies family history of Cancer Social History Smoking and tobacco/nicotine status: current every day tobacco/nicotine user cigarettes Packs smoked per day: 3 Second hand smoke exposure: Yes Alcohol intake: never Substance/Drug Use: never Adopted: No Caregiver/support person: No Lives independently: Yes Household members: spouse Housing: House Marital status: service: No Do you think of yourself as: Straight/Heterosexual Current gender identity: Male Vitals/I&O/Wt Last Vital Signs Temp 97.6 F 07/12/24 12:30 Pulse 96 07/12/24 17:49 Resp 18 07/12/24 15:49 BP 106/73 07/12/24 15:49 Pulse Ox 96 07/12/24 17:49 O2 Del Method Room Air 07/12/24 17:49 Weight last 48 hrs Weight 74.843 kg Physical Exam 2 Narrative: General: No acute distress, AO x3 HEENT: PERRLA, pupils bilaterally equal and reactive, pallors not present Chest: Normal vesicular breath sounds, no added sounds, equal good air entry bilaterally CVS: S1-S2 regular, no murmurs, no tachycardia, no gallops, no rubs Abdomen: Soft, nontender, no organomegaly, bowel sounds present Neuro: No focal deficits, no facial deformity, AO x3, power 5/5 in all limbs Data 07/12/24 12:45 07/12/24 12:45 A&P Assessment and plan (1) Chest pain: 59-year-old male with past medical history as noted above, several cardiac risk factors including uncontrolled diabetes mellitus, hypertension, chronic smoking who is presenting today to the emergency room with 2 weeks of intermittent chest pain. Chest x-ray shows sinus rhythm with left bundle branch block in leads V1 V2. There does appear to have been some new changes compared to 2021. Baseline troponin at 13, 2-hour downtrending at 12.9, awaiting 6-hour trend. Check echocardiogram, unable to find any echocardiogram On file at this time. Differentials at this time include unstable angina, if 6-hour troponin remains downtrending to stable, will proceed with stress test in the morning. Screening D-dimer to assess for possible PE as an alternate explanation.If positive, will obtain CTA Continue home doses of ASA, statin, plavix, metoprolol in the interim. Attestations 2 Medical Necessity Statement*: less than 2 midnight stay anticipated Coding Level of Care Code Acute Code for [facility] Diagnoses Chest pain R07.9
--- NOTE | 2024-07-12 18:30 | ECG_ITS ---
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 Measurements Intervals [place] Rate: 93 P: 59 CO: 205 QRS: 21 QRSD: 130 T: 54 QT: 404 QTc: 505 Interpretive Statements SINUS RHYTHM POSSIBLE ANTERIOR MYOCARDIAL INFARCTION , OF INDETERMINATE AGE [30 ms Q WAVE IN V3/V4, OR R < 0.2 mV IN V4] nonspecific IVCD Compared to ECG 07/12/2024 14:44:25 Left-axis deviation no longer present Myocardial infarct finding still present Electronically Signed On 07-14-2024 01:05:46 KNOCKUP WORKER by Melanie Witt M.D. [email or web address]
[2024-07-12 20:42] LABS: Troponin 5 6HR 15.15 ng/L (0-15); Troponin 5 6HR Delta 2.15 ng/L (0-12)
[2024-07-12] MEDS: clopidogrel 75 mg Tablet PO (21:31)
[2024-07-12] MEDS: atorvastatin 40 mg Tablet PO (21:31)
[2024-07-12] MEDS: pantoprazole DR 40 mg Tablet PO (21:31)
[2024-07-12] MEDS: aspirin 81 mg EC Tablet PO (21:31)
[2024-07-12] MEDS: levothyroxine 50 mcg Tablet PO (21:58)
--- NOTE | 2024-07-12 23:12 | USCV_ITS ---
Sahil Jarquin Age: 59 Gender: M : 1965 Exam Date: 07/13/2024 00:23 Ordering Phys: Sharla Garibay MD Technologist: TERESA [place] [facility] [place] Indication: chest pain, angina, History of DM, HTN, SOB, hx CAD but no stents no intervention BP: 119 / 69 HR: 97 Rhythm: Sinus Technical Quality: Adequate MEASUREMENTS (Male / Female) Normal Values 2D ECHO LV Diastolic Diameter PLAX 4.1 cm 4.2 - 5.9 / 3.9 - 5.3 cm IVS Diastolic Thickness 1.4 cm 0.6 - 1.0 / 0.6 - 0.9 cm IVS Systolic Thickness 1.5 cm LVPW Diastolic Thickness 1.3 cm 0.6 - 1.0 / 0.6 - 0.9 cm LVPW Systolic Thickness 1.9 cm LVOT Diameter 1.8 cm LV Ejection Fraction 2D Teich 67.3 % LV Ejection Fraction MOD 4C 64.6 % LV Ejection Fraction MOD 2C 55.1 % LV Ejection Fraction 2C AL 55.0 % LA Diameter 2.7 cm Aorta at Sinotubular Diameter 2.9 cm IVC Diameter 1.3 cm M-MODE LA Ao Ratio MM 1.1 AV Cusp Separation MM 2.4 cm DOPPLER AV Peak Velocity 144.0 cm/s LVOT Peak Velocity 109.0 cm/s AV Area Cont Eq vti 2.0 cm squared AV Area Cont Eq pk 1.8 cm squared MV Peak Velocity 94.0 cm/s MV Area PHT 6.5 cm squared Mitral E to A Ratio 2.2 TV Peak E Velocity 97.0 cm/s PV Peak Velocity 115.0 cm/s FINDINGS Left Ventricle Mild to moderate concentric left trickle hypertrophy. Diffuse hypokinesia left ventricular ejection fraction of 40 to 45%, visual Right Ventricle The right ventricle is normal in size and function. Right Atrium The right atrium is normal in size. Left Atrium The left atrium is normal in size. Mitral Valve Trace mitral valve regurgitation. Aortic Valve Trace aortic valve regurgitation. Tricuspid Valve No significant abnormalities noted Pulmonic Valve No gross abnormalities noted Pericardium Normal pericardium without effusion. Aorta Normal ascending aorta dimension. IVC Normal inferior vena cava. CONCLUSIONS Mild to moderate concentric left trickle hypertrophy. Diffuse hypokinesia of the left ventricule with an ejection fraction of 40 to 45%, (visual.). Trace mitral valve regurgitation. There is no pericardial effusion. There are no intracardiac masses. No similar previous studies are available for comparison Dr Melanie Witt MD [facility] (Electronically Signed) Final Date: 13 July 2024 07:05 S
[2024-07-13] VITALS (34 sets, daily range): BP systolic 99–137; BP diastolic 56–88; PULSE 85–115; RESP 13–26; TEMP 36.6–37.2; O2SAT 90–98
[2024-07-13 03:34] LABS: Basophils % 0.5 %; Eosinophils # 0.3 10^3/uL (0.0-0.8); Eosinophils % 4.1 %; Hematocrit 41.6 % (37-53); Lymphocytes # 2.6 10^3/uL (0.8-4.8); Lymphocytes % 30.9 %; Mean Corpuscular HGB Conc 34.4 g/dL (30-55); Mean Corpuscular Hemoglobin 29.8 pg (27-33); Mean Corpuscular Volume 86.7 fl (82-101); Mean Platelet Volume 11.3 fL (7.4-10.4); Monocytes # 0.5 10^3/uL (0.2-0.9); Monocytes % 6.4 %; Neutrophils # 4.77 10^3/uL (1.8-7.7); Neutrophils % 57.7 %; Nucleated Red Blood Cells % 0 %; Platelet Count 221 10^3/cmm (157-399); White Blood Count 8.26 10^3/uL (3.29-11.43)
[2024-07-13 03:55] LABS: Alanine Aminotransferase 16 U/L (0-41); Albumin Level 3.4 g/dL (3.5-5.2); Alkaline Phosphatase 98 U/L (40-130); Aspartate Amino Transferase 10 U/L (0-40); Blood Urea Nitrogen 12 mg/dL (6-20); Calcium 9.2 mg/dL (8.5-10.5); Carbon Dioxide 22 mmol/L (22-29); Chloride 105 mmol/L (98-107); Creatinine Clr Calc Pharmacy 203.5046; Globulin 2.5 g/dL (1.3-4.6); Glomerular Filtration Rate 220.2 mL/min (90-130); Glucose 394 mg/dL (65-115); Osmolality Calculated 300 mOsm/kg (285-295); Sodium 137 mmol/L (136-145); Total Bilirubin 0.6 mg/dL (0.15-1.2); Total Protein 5.9 g/dL (6.6-8.7)
[2024-07-13 04:02] LABS: Anion Gap 13.9 (5-19); Potassium 3.9 mmol/L (3.5-5.1)
[2024-07-13 08:50] LABS: Glucose Point of Care 343 mg/dL (70-110)
[2024-07-13] MEDS: regadenoson 0.4 Mg/5 ml Syringe IVP (10:46)
[2024-07-13] MEDS: metoprolol succinate ER (24 HR) 25 mg Tablet PO (11:58)
[2024-07-13] MEDS: metformin XR 500 MG Tablet PO (11:58)
[2024-07-13 12:31] LABS: Glucose Point of Care 404 mg/dL (70-110)
--- NOTE | 2024-07-13 13:56 | PC.NURSE ---
Patient transferred to CSU from ER via a wheelchair at 1335.
[2024-07-13 16:07] LABS: Glucose Point of Care 430 mg/dL (70-110)
--- NOTE | 2024-07-13 17:16 | P.PN_ITS ---
Subjective 2 Subjective: Denies any chest pain today.abnormal stress test as outlined below. Medications: Reviewed: Yes Vitals/I&O/Wt Last Vital Signs Temp 98.0 F 07/13/24 13:44 Pulse 85 07/13/24 13:44 Resp 18 07/13/24 13:44 BP 119/72 07/13/24 13:44 Pulse Ox 93 07/13/24 13:44 O2 Del Method Room Air 07/13/24 14:08 07/13/24 07/13/24 07/13/24 06:59 14:59 22:59 Intake Total 240 / 240 Balance 240 / 240 Weight last 48 hrs Weight 77.564 kg Weight 74.843 kg Physical Exam 2 Narrative: General: No acute distress, AO x3 HEENT: PERRLA, pupils bilaterally equal and reactive, pallors not present Chest: Normal vesicular breath sounds, no added sounds, equal good air entry bilaterally CVS: S1-S2 regular, no murmurs, no tachycardia, no gallops, no rubs Abdomen: Soft, nontender, no organomegaly, bowel sounds present Neuro: No focal deficits, no facial deformity, AO x3, power 5/5 in all limbs Data 07/13/24 03:29 07/13/24 03:29 A&P Assessment and plan (1) Chest pain: 59-year-old male with past medical history as noted above, several cardiac risk factors including uncontrolled diabetes mellitus, hypertension, chronic smoking who is presenting today to the emergency room with 2 weeks of intermittent chest pain. Chest x-ray shows sinus rhythm with left bundle branch block in leads V1 V2. There does appear to have been some new changes compared to 2021. Baseline troponin at 13, 2-hour downtrending at 12.9, awaiting 6-hour trend. Check echocardiogram, unable to find any echocardiogram On file at this time. Differentials at this time include unstable angina, if 6-hour troponin remains downtrending to stable, will proceed with stress test in the morning. Screening D-dimer to assess for possible PE as an alternate explanation.If positive, will obtain CTA Continue home doses of ASA, statin, plavix, metoprolol in the interim. 07/13/2024 Screening D-dimer was negative as was 6-hour troponin delta. Patient underwent echocardiogram today which showed an LVEF of 40% with diffuse hypokinesia of the left ventricle. No prior studies to compare this to. He completed Lexiscan stress test today which showed small area of ischemia in the LAD territory. Possibly attenuation artifact in inferior apical and inferoseptal schroeder. Given abnormal echocardiogram and stress test, obtain cardiology consult to assess for possible angiogram. Uncontrolled blood sugars ranging up to 430, change insulin to high-dose sliding scale. Normal anion gap on CMP. Unlikely DKA. Hide DVT prophylaxis with Lovenox 40 mg subcutaneously. Attestations 2 Medical Necessity Statement*: Cardiology consult today for abnormal stress test, possible angiogram Coding Level of Care Code Acute Code for Chg Fwd Moderate MDM includes number and complexity of problems actively addressed during encounter, amount and/or complexity of data reviewed/ordered and described risk of complication, morbidity or mortality of management as documented Diagnoses Chest pain R07.9
[2024-07-13] MEDS: insulin lispro 100 unit/1 mL SUBCUT ×2 (18:08→20:40)
[2024-07-13] MEDS: enoxaparin 40 mg/0.4 mL Syringe SUBCUT (18:09)
[2024-07-13 20:23] LABS: Glucose Point of Care 167 mg/dL (70-110)
[2024-07-13] MEDS: aspirin 81 mg EC Tablet PO (20:39)
[2024-07-13] MEDS: pantoprazole DR 40 mg Tablet PO (20:39)
[2024-07-13] MEDS: clopidogrel 75 mg Tablet PO (20:39)
[2024-07-13] MEDS: atorvastatin 40 mg Tablet PO (20:39)
[2024-07-13] MEDS: levothyroxine 50 mcg Tablet PO (20:40)
--- NOTE | 2024-07-13 21:16 | NMCV_ITS ---
NM ger perf SPECT r/s* [id number] Sahil Jarquin Age: 59 Gender: M : 1965 Exam Date: 07/13/2024 21:16 Ordering Phys: Sharla Garibay MD Technologist: SAM Lemons Exam Location: [facility] Indications: CP STRESS TEST Please see separate stress test report in [facility] for full findings IMAGE PROTOCOL Rest/Stress 1 Lexiscan Day Radiopharmaceutical Dose (mCi) Administration Site Administered by Rest: Tc-99m 11 IV SAM Lemons Sestamibi Stress:Tc-99m 32.7 IV SAM Bradshaw Sestamibi Rest: 13-Jul-2024 60 Discovery 630 Stress: 13-Jul-2024 30 Discovery 630 0.4mg Lexiscan. Images obtained in supine and prone position. SPECT RESULTS Technical Quality: Good Raw Data Analysis: Normal Image Corrections: No attenuation or motion correction applied Summed Stress Score: 16 Summed Rest Score: 16 Summed Difference Score: 2 PERFUSION FINDINGS There is a large area of mostly fixed perfusion defect seen in apical, inferior and inferoseptal schroeder. It improves on prone imaging. Likely attenuation artifact. There is a small area of reversible perfusion defect seen in apical anterior wall. This is consistent with small area of ischemia in the LAD territory. FUNCTIONAL RESULTS (calculated via Gated SPECT) Stress Image LV EF (%): 55 Stress EDV (mL):152 TID: 1.15 Stress ESV (mL):69 FUNCTIONAL FINDINGS: There is normal left ventricular systolic function. IMPRESSIONS 1. Attenuation artifact seen in inferior, apical and inferoseptal schroeder. 2. Small area of ischemia seen in LAD territory. 3. LV systolic function is normal. Rajesh Brasher MD (Electronically Signed) Final Date: 13 July 2024 16:52 S
--- NOTE | 2024-07-13 21:53 | P.CONIM_ITS ---
Providers/Reason For Consult 2 Consulting Physician/Specialty*: Macy Nation MD Reason for Consult*: Chest pain suggestive of unstable angina Abnormal stress test Moderately depressed left ventricular ejection Requesting Physician: Dr. Garibay Attending Physician: Sharla Garibay MD Primary Care Provider: VIRA DeckerP-C History of Present Illness History of Present Illness Sahil Jarquin is a 59 year old male past medical history significant for prior MN, coronary artery disease history of multiple stent as per patient no record available to me, moderately depressed left ventricular ejection fraction continuous tobacco abuse who has been struggling with worsening of chest pain which has increased in frequency and duration the last couple of week was admitted, he was ruled out for acute coronary syndrome underwent stress test which showed though small area of ischemia in LAD territory but because of the fact patient has chest pain at rest and at mild exertion, he cannot walk further than couple of 100 feet without being symptomatic. Chest pain relieved with nitroglycerin. We have been asked to assist in his care. Twelve-lead EKG is consistent with sinus rhythm and left bundle branch block which is not new. Review of Systems 2 General: Reports: 10 or more systems reviewed and unremarkable except in HPI and below Const: Denies: fever(s), chills or body aches Eyes: Denies: change in vision, blurry vision or photophobia ENMT: Reports: hoarseness; Denies: throat pain, enlarged tonsils, odynophagia or nasal congestion Card: Denies: chest pain, palpitations, irregular heart rhythm, edema, swelling of feet/ankles, lightheadedness, pre-syncope, dyspnea on exertion or orthopnea Resp: Denies: dyspnea, productive cough, non-productive cough, wheezing, stridor, pain on inspiration, change in phlegm color, hemoptysis or chest congestion GI: Denies: abdominal pain, nausea, vomiting, hematemesis, coffee ground emesis, dysphagia, heartburn, diarrhea, constipation, GI cramping, change in stool character, hematochezia or melena : Denies: flank pain, dysuria, urinary frequency, urinary urgency, urinary hesitancy or hematuria Musc: Denies: neck pain, back pain, extremity pain, joint swelling, joint warmth or deformity Skin/Breast: Denies: rash Neuro: Denies: headache(s), numbness in extremities, weakness in extremities, sensory changes, difficulty walking, frequent falls, dizziness, vertigo, behavioral changes, Slurred speech present or seizure-like activity Psych: Denies: anxiety, depression, suicidal ideation or homicidal ideation Endo: Denies: polyuria, polydipsia, tired all the time, cold intolerance or hot flashes Jay/Lymph: Denies: easy bruising or easy bleeding Medications/Allergies Home Medications Medication Instructions Recorded Confirmed Last Taken Type aspirin 81 mg tablet,delayed 81 mg PO BEDTIME 09/06/19 07/12/24 07/11/24 History release (Adult Low Dose Aspirin) blood-glucose meter #1 ea 11/07/21 07/12/24 Unknown Rx blood sugar diagnostic (Blood #100 ea 02/12/22 07/12/24 Unknown Rx Glucose Test strips) lancets 33 gauge (BD Ultra Fine #100 ea 02/12/22 07/12/24 Unknown Rx Lancets) nitroglycerin 0.4 mg sublingual 0.4 mg sublingual Q5M PRN Chest 03/05/22 07/12/24 Unknown History tablet (Nitrostat) Pain albuterol sulfate 2.5 mg/3 mL 2.5 mg (3 mL) inhalation QID PRN 03/11/22 07/12/24 Unknown Rx (0.083 %) solution for nebulization shortness of breath or wheezing #75 mL compressor, for nebulizer #1 ea 03/11/22 07/12/24 Unknown Rx nebulizer accessories #1 ea 03/11/22 07/12/24 Unknown Rx omeprazole 20 mg capsule,delayed 20 mg PO BEDTIME #30 caps 06/06/23 07/12/24 07/11/24 Rx release pen needle, diabetic 31 gauge x #100 ea 06/06/23 07/12/24 Unknown Rx 3/16 (Easy Comfort Pen [place]) hinged knee brace, right #1 ea 11/17/23 07/12/24 Unknown Rx clopidogrel 75 mg tablet 75 mg PO BEDTIME #30 tabs 05/06/24 07/12/24 07/11/24 Rx metformin 500 mg tablet,extended 500 mg PO DAILY #30 tabs 05/06/24 07/12/24 07/11/24 Rx release 24 hr metoprolol succinate 25 mg 25 mg PO DAILY #30 tabs 05/06/24 07/12/24 07/11/24 Rx tablet,extended release 24 hr simvastatin 80 mg tablet 80 mg PO BEDTIME #30 tabs 05/06/24 07/12/24 07/11/24 Rx sodium chloride 1,000 mg soluble 1,000 mg PO DAILY #30 tabs 05/06/24 07/12/24 07/11/24 Rx tablet tirzepatide 2.5 mg/0.5 mL 2.5 mg (0.5 mL) SUBCUT .week #2 mL 05/06/24 07/12/24 07/11/24 Rx subcutaneous pen injector (Nathan) levothyroxine 50 mcg tablet 50 mcg PO BEDTIME 07/12/24 07/12/24 07/11/24 History Allergies Allergy/AdvReac Type Severity Reaction Status Date / Time No Known Allergies Allergy Verified 05/06/24 15:29 Current Medications Generic Name Dose Route Start Last Admin Trade Name Freq PRN Reason Stop Dose Admin Aspirin 81 mg 07/12/24 21:16 07/13/24 20:39 Aspirin 81 Mg Ec Tablet PO 81 mg BEDTIME LORRIE Administration Atorvastatin Calcium 40 mg 07/12/24 21:16 07/13/24 20:39 Atorvastatin 40 Mg Tablet PO 40 mg BEDTIME LORRIE Administration Clopidogrel Bisulfate 75 mg 07/12/24 21:16 07/13/24 20:39 Clopidogrel 75 Mg Tablet PO 75 mg BEDTIME LORRIE Administration Enoxaparin Sodium 40 mg 07/13/24 17:30 07/13/24 18:09 Enoxaparin 40 Mg/0.4 Ml Syringe SUBCUT 40 mg Q24H LORRIE Administration Insulin Human Lispro 0 unit 07/13/24 18:00 07/13/24 20:40 Insulin Lispro 100 Unit/1 Ml SUBCUT 6 unit WM&BEDTIME LORRIE Administration Protocol Levothyroxine Sodium 50 mcg 07/12/24 21:16 07/13/24 20:40 Levothyroxine 50 Mcg Tablet PO 50 mcg BEDTIME LORRIE Administration Metformin HCl 500 mg 07/13/24 09:00 07/13/24 11:58 Metformin Xr 500 Mg Tablet PO 500 mg DAILY LORRIE Administration Metoprolol Succinate 25 mg 07/13/24 09:00 07/13/24 11:58 Metoprolol Succinate Er (24 Hr) 25 Mg Tablet PO 25 mg DAILY LORRIE Administration Pantoprazole Sodium 40 mg 07/12/24 21:16 07/13/24 20:[address] 40 Mg Tablet PO 40 mg BEDTIME LORRIE Administration PFSH Acute 2 PFSH: Medical History Diabetes mellitus with hyperglycemia, without long-term current use of insulin Hyperglycemia Acute and chronic respiratory failure with hypoxia Pleuritic chest pain Pneumonia Sepsis COPD (chronic obstructive pulmonary disease) Smoker Leg cramps Atherosclerotic coronary vascular disease Osteoarthritis, chronic Hypothyroid Insomnia due to mental condition Diabetes mellitus Essential hypertension GERD (gastroesophageal reflux disease) Anxiety and depression Environmental and seasonal allergies Dyslipidemia Surgical History S/P coronary artery stent placement H/O knee surgery Family History Mother Diabetes Father Hypertension Denies family history of Cancer Social History Smoking and tobacco/nicotine status: current every day tobacco/nicotine user cigarettes Packs smoked per day: 3 Second hand smoke exposure: Yes Alcohol intake: never Substance/Drug Use: never Adopted: No Caregiver/support person: No Lives independently: Yes Household members: spouse Housing: House Marital status: service: No Do you think of yourself as: Straight/Heterosexual Current gender identity: Male Dietary Habits: Current diet type/program: regular Caffeine: Yes Exercise: What type of physical activity do you participate in?: none Safety: Seatbelt use: sometimes Helmet use: No Drive 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 HEART: Regular S1 and S2. No murmur, rub or gallop. LUNGS: Clear to auscultate bilaterally. CENTRAL NERVOUS SYSTEM: Grossly nonfocal. EXTREMITIES: Lower extremities with out edema bilaterally. Data 07/13/24 03:29 07/13/24 03:29 A&P Assessment and plan (1) Chest pain: (2) Cigarette smoker: (3) Atherosclerotic coronary vascular disease: (4) Diabetes mellitus with hyperglycemia, without long-term current use of insulin: Qualifiers: Diabetes mellitus type: type 2 Qualified Code(s): E11.65 - Type 2 diabetes mellitus with hyperglycemia Plan Chest pain highly suspicious for unstable angina Coronary disease status post prior multiple stents Continues tobacco abuse Abnormal stress test Moderately depressed left ventricular ejection fraction Congestive heart failure compensated Patient presentation with worsening of chest pain which has increased in frequency and duration and not to the extent he cannot walk few 100 feet is consistent with unstable angina, given history of prior stent high risk for acute coronary syndrome and abnormal stress test we will proceed with left heart cath/PCI if indicated. Patient will be n.p.o. overnight. At this point continue aspirin and statin clopidogrel beta-chayo add isosorbide mononitrate. Further plan will be devised as per progress of the patient Consult Attestations 2 Medical Necessity Statement: Patient require continuation hospitalization for above defined care. Coding Level of Care Code Acute Code for [facility] Diagnoses Chest pain R07.9 Cigarette smoker F17.210 Atherosclerotic coronary vascular disease I25.10 Type 2 diabetes mellitus with hyperglycemia, without long-term current use of insulin E11.65 Diabetes mellitus type: type 2
[2024-07-14] VITALS (15 sets, daily range): BP systolic 93–129; BP diastolic 59–81; PULSE 60–100; RESP 5–26; TEMP 36.5–36.9; O2SAT 93–99
[2024-07-14 06:20] LABS: Glucose Point of Care 264 mg/dL (70-110)
[2024-07-14 07:17] LABS: Basophils # 0.1 10^3/uL (0.0-0.1); Basophils % 0.5 %; Eosinophils # 0.4 10^3/uL (0.0-0.8); Eosinophils % 4.5 %; Hematocrit 42.1 % (37-53); Lymphocytes # 2.6 10^3/uL (0.8-4.8); Lymphocytes % 27.3 %; Mean Corpuscular HGB Conc 34.2 g/dL (30-55); Mean Corpuscular Hemoglobin 29.7 pg (27-33); Mean Corpuscular Volume 86.8 fl (82-101); Mean Platelet Volume 11.4 fL (7.4-10.4); Monocytes # 0.7 10^3/uL (0.2-0.9); Neutrophils # 5.81 10^3/uL (1.8-7.7); Neutrophils % 60.2 %; Nucleated Red Blood Cells % 0 %; Platelet Count 214 10^3/cmm (157-399); Red Blood Count 4.85 10^6/uL (3.85-5.65); Red Cell Distribution Width 11.9 % (12.1-15.1); White Blood Count 9.66 10^3/uL (3.29-11.43)
[2024-07-14 07:41] LABS: Blood Urea Nitrogen 18 mg/dL (6-20); Calcium 9.3 mg/dL (8.5-10.5); Carbon Dioxide 23 mmol/L (22-29); Chloride 103 mmol/L (98-107); Creatinine Clr Calc Pharmacy 163.9872; Glomerular Filtration Rate 170.2 mL/min (90-130); Glucose 278 mg/dL (65-115); Osmolality Calculated 294 mOsm/kg (285-295); Sodium 136 mmol/L (136-145)
[2024-07-14] MEDS: metoprolol succinate ER (24 HR) 25 mg Tablet PO (07:47)
[2024-07-14] MEDS: insulin lispro 100 unit/1 mL SUBCUT ×3 (07:47→21:23)
--- NOTE | 2024-07-14 10:00 | XACV_ITS ---
Exam Room: [facility] Ht: 175 cm Wt: 76 kg BSA: 1.93 m2 Gender: Male : 1965 Any Known Allergies: No known allergies Exam Priority: Routine Procedure(s): Procedure Description: Diagnostic procedure Procedure Description: PCI procedure Procedure Description: Coronary IVUS Procedure Description: Drug Eluting Coronary Stent Procedure Description: PTCA Procedure Description: Miscellaneous Procedure Description: ACT Procedure Description: [facility]; Diagnostic Cath Status: Urgent Diagnostic Findings * Left Main has no disease. * Circumflex has no disease. * Proximal Left Anterior Descending: severe 90% stenosis, DEBBIE: 3 flow. * Proximal Right Coronary Artery: minimal 30% stenosis, DEBBIE: 3 flow. * 1st Diagonal: moderate 50% stenosis, DEBBIE: 3 flow. * Coronary angiography shows right dominance. * IVUS guided PCI was performed in the LAD, IVUS was performed after stent placement to assess good apposition or any residual dissection. Stent was opposed good without obvious dissection or thrombus.. * Indication: Worsening of angina/abnormal stress test. PCI Indication: New Onset Angina <= 2 months Interventional Findings * Proximal Left Anterior Descendin% stenosis treated with a MDT MELLISSA EUPHORA RX [id number] BALLOON, MDT Brandon PADILLA 4.0X12 STEVIE, and MDT MELLISSA EUPHORA RX [id number] BALLOON. 0% residual stenosis, DEBBIE: 3 flow. Conclusions 1. There is severe coronary artery disease with two vessel disease. 2. Proximal Left Anterior Descending was treated with a Balloon, Drug Eluting Stent, and Balloon. Recommendations * 1-Return to inpatient for close monitoring and routine cath care 2-Risk factor modification for secondary prevention 3-Statin and aspirin 81 mg life-long, if tolerated 4-Patient was pre-loaded with 600 mg of Plavix, continue Plavix 75mg p.o. daily for at least one year. We will assess at the end of one year again to continue if further or not 5-Continue optimal medical management 6-Follow up with Dr. Nation in four weeks and your primary care in 10 days. Interventional RX Recommendation: PCI w/o planned CABG Diagnostic RX Recommendation: PCI w/o planned CABG Pressures Phase:Rest AO : 113 / 79 ( 92 ) @ 11:19:00 AM 96 / 67 ( 78 ) @ 11:26:00 AM 108 / 67 ( 82 ) @ 11:31:00 AM 106 / 68 ( 84 ) @ 11:53:00 AM Clinical Evaluation EBL: 5mL-10mL Procedural Details Procedure Consent Obtained. Pre-Procedure Time Out. Identified patient by full name and date of as verbalized by the patient/guarantor. Does the consent match the physician's order: Yes. Accurate & Complete Informed Consent: Yes. Inpatient/Outpatient History & Physical on Chart: Yes. If H&P is completed, is and addenduem needed: No; If yes, is the addendum complete: N/A. Visualize and Verify Site with Patient/Guarantor: N/A. Relevant Radiology Images available: N/A. Pre-op teaching completed and patient verbalized understanding. The risks, benefits, and alternatives of sedation and/or procedure were discussed by physician. The patient agrees to continue. Procedure started. [facility] Clinical Fraility Score: 3: Managing Well. 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 Chest Pain Symptom Assessment: Typical Angina Symptoms. Cardiovascular Instability: No. Correct patient, site and procedure confirmed by cath team. PERRLA. 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 Lungs clear x 5 lobes. IV Site on Arrival: 20 gauge in the right anticubital. Oxygen started at 2liters/min via nasal canula. right groin was prepped with chloroprep then draped in the usual sterile fashion. right radial was prepped with chloroprep then draped in the usual sterile fashion. Baseline sample Acquired. HR: 85 BPM. Physician notified. Equipment: 6F - Radial. Cardiac Cath Pack. ACIST Manifold Kit Model BT 2000. Heparinized Saline (2 units/mL), 1000 mL bag. Physician arrived. Physician scrubbed in. Immediate Pre-Procedure Time Out. Correct Patient: Yes; Correct Procedure: Yes; Correct Site: Yes; Correct Patient Position: Yes; Correct Supplies: Yes; Dried Flammable Prep: Yes; Blood Products Available: N/A;. Lidocaine 1% infiltrated to the right radial. Arterial access obtained. A 5 zimbabwean TIG catheter in over wire. Multiple views taken of left coronary artery. Catheter redirected to the RCA. Multiple views taken of right coronary artery. Catheter removed over the exchange wire. A 5 zimbabwean JR4 catheter in over wire. Catheter removed over the exchange wire. 6 zimbabwean XB 3 guide catheter was inserted over the wire. Runthrough guidewire was advanced through the guide catheter to lesion in the mid LAD. Inflation number : 1 A MDT NC EUPHORA RX [id number] BALLOON was prepped and advanced across the Prox LAD , then inflated to 12 DARA for 0:23 seconds. ACT drawn. Results 213 seconds. Therapeutic limits - pre-heparin administration 90-150 seconds and monitoring heparin during a vascular procedure >250 seconds. Inflation number: 2 The MDT NC EUPHORA RX [id number] BALLOON was reinflated across the Prox LAD, to 20 DARA for 0:17 seconds. Balloon out. Results checked. Inflation Number : 3 A MDT R PADILLA 4.0X12 STEVIE -Lot Number# [id number] exp date 01/18/2027 was prepped and advanced across the Prox LAD. The stent was deployed at 16 DARA for 0:19 seconds. Stent balloon out over wire. Results checked. Inflation number : 4 A MDT NC EUPHORA RX [id number] BALLOON was prepped and advanced across the Prox LAD , then inflated to 12 DARA for 0:14 seconds. Inflation number: 5 The MDT NC EUPHORA RX [id number] BALLOON was reinflated across the Prox LAD, to 12 DARA for 0:11 seconds. Inflation number: 6 The MDT NC EUPHORA RX [id number] BALLOON was reinflated across the Prox LAD, to 12 DARA for 0:09 seconds. Balloon out. ACT drawn. Results 386 seconds. Therapeutic limits - pre-heparin administration 90-150 seconds and monitoring heparin during a vascular procedure >250 seconds. IVUS catheter inserted. IVUS run of prox LAD performed. IVUS catheter out. Results checked. Wire out. Guide catheter out. Physician scrubbed out. A TR Band was successful obtaining hemostatsis at the Right Radial artery insertion site. TR band placed. Hemostasis obtained. Post Procedure: Pulses reassessed and unchanged. PERRLA. 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 No VTE prophylaxis required. Contrast type used: Omnipaque 300 mgI/mL, 500 mL bottle. Post-op diagnosis: significant prox LAD stenosis. Complications: none. Medication's Wasted: Lidocaine 1% = 18 mL. Medication's Wasted: Heparin = 2000 units. Medication's Wasted: Nitro = 49.8 mg. Medication's Wasted: Other = versed 1 mg. Medication's Wasted: Other = fentanyl 75 mcg. Estimated blood loss: 5mL-10mL. Responsiveness - Normal response to verbal stimuli; alert and oriented, PERRLA. Airway - Unaffected, no intervention required; spontaneous ventilation. Circulation: W/N/L, pulses unchanged. Nausea/Vomiting: No. Procedure completed. Patient transferred by bed to 1st floor. Vital chart was stopped. Access Site Site: Right Radial artery Sheath Size: 6 Fr Hemostasis Method: TR Band Hemostasis Success: Successful Procedure Medications Start: 10:55 AM Stop: 10:55 AM Medication: Benadryl Amount: 25 mg Route: I.V. Start: 11:12 AM Stop: 11:12 AM Medication: Versed Amount: 1 mg Route: I.V. Start: 11:12 AM Stop: 11:12 AM Medication: Fentanyl Amount: 25 mcg Route: I.V. Start: 11:16 AM Stop: 11:16 AM Medication: Nitrogylcerin Amount: 200 mcg Route: I.A. Start: 11:19 AM Stop: : AM Medication: Heparin Amount: 5000 units Route: I.V. Start: 11:36 AM Stop: :36 AM Medication: Heparin Amount: 4000 units Route: I.V. Start: 12:09 PM Stop: 12:09 PM Medication: Plavix Amount: 300 mg Route: P.O. I, the attending physician, have reviewed and verified all procedure medications. Yes, all medications given per verbal order History/Risk Factors Hypertension: Yes Dyslipidemia: Yes Peripheral Arterial Disease (PAD): No Myocardial Infarction (AL): No Obesity: No Renal Disease: No Tobacco Use: Current/Recent(w/in 1 year) Prior Interventions PCI: Yes CABG: No Valve Surgery: No Report Signatures Finalized by Macy Nation MD on 07/18/2024 07:19 PM
--- NOTE | 2024-07-14 10:54 | W.PM.OPSUD ---
Surgery/Procedure H&P Update DATE OF PROCEDURE: July 14, 2024 DATE H&P PERFORMED: 07/13/24 H&P UPDATE INFORMATION: I have reviewed H&P completed within last 30 days, I have examined patient prior to procedure and No changes to prior documentation PREOP DIAGNOSIS: Chest pain suspicious for unstable angina, abnormal stress test PATIENT REASSESSED PRIOR TO SEDATION, WITH NO CHANGE NOTED: Yes PHYSICAL EXAM: alert, oriented x 3, clear to auscultation bilaterally and regular rate & rhythm AIRWAY EVAL/ANESTHESIA PLAN: ASA II, Risks, benefits & alternatives of sedation and/or procedure discussed and Patient agrees to continue as planned
--- NOTE | 2024-07-14 12:08 | PM.PROC ---
Procedure Note: Date of procedure: 07/14/24 Pre-procedure diagnosis: Unstable angina abnormal stress test Post-procedure diagnosis: other (Status post PCI to proximal LAD for severe in-stent restenosis) Procedure: Left heart catheterization was performed for unstable angina. Patient was noted to have high-grade 80 to 85% in-stent restenosis in the proximal LAD treated with balloon angioplasty followed by drug eluting stent postdilated with noncompliant balloon. IVUS was performed which showed good apposition of the stent. Left main left circumflex is normal. RCA is nondominant small caliber vessel without significant disease. LV gram was not crossed since patient recently has echocardiogram. Blood loss minimal No complication Plan: Patient will be loaded with 300 mg of Plavix, continue maintenance dose of 75 mg of Plavix every day. Continue rest of medication. Advised quitting smoking. Full note to follow. Radial band in place which will be off as per protocol. Patient will be transferred to [facility] he is hemodynamically stable. No complication noted. Coding Level of Care Code Acute Code for [facility]
--- NOTE | 2024-07-14 12:21 | PC.NURSE ---
Patient received from cath s/p [facility] via right radial access with TR band in place. Right extremity warm, pink with palpable pulses. Instructed patient on site care and restrictions. Patient verbalized complete understanding. Family at bedside. Will continue to monitor.
--- NOTE | 2024-07-14 13:39 | P.PN_ITS ---
Subjective 2 Subjective: Status post angiogram this morning with placement of PCI to proximal LAD for severe in-stent restenosis. Please see cardiology notes for further details. Currently feels improved. Medications: Reviewed: Yes Vitals/I&O/Wt Last Vital Signs Temp 98.5 F 07/14/24 07:59 Pulse 94 07/14/24 12:23 Resp 26 H 07/14/24 12:23 BP 126/81 07/14/24 12:23 Pulse Ox 94 07/14/24 12:23 O2 Del Method Room Air 07/14/24 07:59 07/13/24 07/14/24 07/14/24 22:59 06:59 14:59 Intake Total 1080 / 1320 480 / 1800 Output Total 400 / 400 300 / 700 Balance 680 / 920 180 / 1100 Weight last 48 hrs Weight 76.158 kg Weight 75.75 kg Weight 77.564 kg Physical Exam 2 Narrative: General: No acute distress, AO x3 HEENT: PERRLA, pupils bilaterally equal and reactive, pallors not present Chest: Normal vesicular breath sounds, no added sounds, equal good air entry bilaterally CVS: S1-S2 regular, no murmurs, no tachycardia, no gallops, no rubs Abdomen: Soft, nontender, no organomegaly, bowel sounds present Neuro: No focal deficits, no facial deformity, AO x3, power 5/5 in all limbs Data 07/14/24 07:07 07/14/24 07:07 A&P Assessment and plan (1) Chest pain: 59-year-old male with past medical history as noted above, several cardiac risk factors including uncontrolled diabetes mellitus, hypertension, chronic smoking who is presenting today to the emergency room with 2 weeks of intermittent chest pain. Chest x-ray shows sinus rhythm with left bundle branch block in leads V1 V2. There does appear to have been some new changes compared to 2021. Baseline troponin at 13, 2-hour downtrending at 12.9, awaiting 6-hour trend. Check echocardiogram, unable to find any echocardiogram On file at this time. Differentials at this time include unstable angina, if 6-hour troponin remains downtrending to stable, will proceed with stress test in the morning. Screening D-dimer to assess for possible PE as an alternate explanation.If positive, will obtain CTA Continue home doses of ASA, statin, plavix, metoprolol in the interim. 07/13/2024 Screening D-dimer was negative as was 6-hour troponin delta. Patient underwent echocardiogram today which showed an LVEF of 40% with diffuse hypokinesia of the left ventricle. No prior studies to compare this to. He completed Lexiscan stress test today which showed small area of ischemia in the LAD territory. Possibly attenuation artifact in inferior apical and inferoseptal schroeder. Given abnormal echocardiogram and stress test, obtain cardiology consult to assess for possible angiogram. Uncontrolled blood sugars ranging up to 430, change insulin to high-dose sliding scale. Normal anion gap on CMP. Unlikely DKA. Hide DVT prophylaxis with Lovenox 40 mg subcutaneously. 07/14/2024. Patient underwent coronary angiogram, findings suggestive of severe in-stent restenosis 80 to 85% in the proximal LAD. Treated with balloon angioplasty followed by drug-eluting stent. Continue aspirin 81 mg daily, Plavix 75 mg daily, statins and beta-blockers. Plan Status post Attestations 2 Medical Necessity Statement*: angiogram today, anticipate discharge in the upcoming 24 hours if continues to do well. Coding Level of Care Code Acute Code for [facility] Diagnoses Chest pain R07.9
--- NOTE | 2024-07-14 13:53 | PC.NURSE ---
Patient refusing to leave BP cuff on for s/p C vitals. No s/s of bleeding or hematoma formation to right wrist. Will continue to monitor.
--- NOTE | 2024-07-14 16:47 | PC.NURSE ---
Addendum entered by Orly Wagner RN 07/14/24 16:49: Patient up ambulating in najera and to bathroom. Patient refusing to wear BP cuff and monitoring. Original Note: Initiated TR band removed at 1320 removing 2ml of air every 15-20min until all air removed at 1600. TR band is off. No s/s of bleeding or hematoma formation observed. Covered site with 2x2 and coban. Instructed patient on site care and restrictions. Patient verbalized complete understanding. Patient denies pain or needs. Will continue to monitor.
[2024-07-14 17:34] LABS: Glucose Point of Care 453 mg/dL (70-110)
[2024-07-14 21:04] LABS: Glucose Point of Care 259 mg/dL (70-110)
[2024-07-14] MEDS: pantoprazole DR 40 mg Tablet PO (21:23)
[2024-07-14] MEDS: atorvastatin 40 mg Tablet PO (21:23)
[2024-07-14] MEDS: levothyroxine 50 mcg Tablet PO (21:23)
[2024-07-14] MEDS: temazepam 15 mg Capsule PO (21:23)
[2024-07-14] MEDS: aspirin 81 mg EC Tablet PO (21:23)
[2024-07-14] MEDS: clopidogrel 75 mg Tablet PO (21:23)
[2024-07-15 04:10] LABS: Basophils % 0.4 %; Eosinophils # 0.5 10^3/uL (0.0-0.8); Eosinophils % 5.3 %; Hematocrit 40.6 % (37-53); Lymphocytes # 2.9 10^3/uL (0.8-4.8); Lymphocytes % 29.1 %; Mean Corpuscular HGB Conc 34.7 g/dL (30-55); Mean Corpuscular Hemoglobin 29.7 pg (27-33); Mean Corpuscular Volume 85.5 fl (82-101); Monocytes # 0.9 10^3/uL (0.2-0.9); Monocytes % 8.9 %; Neutrophils # 5.52 10^3/uL (1.8-7.7); Neutrophils % 55.9 %; Nucleated Red Blood Cells % 0 %; Platelet Count 221 10^3/cmm (157-399); Red Blood Count 4.75 10^6/uL (3.85-5.65); Red Cell Distribution Width 11.8 % (12.1-15.1); White Blood Count 9.87 10^3/uL (3.29-11.43)
[2024-07-15 04:44] LABS: Anion Gap 12.6 (5-19); Blood Urea Nitrogen 16 mg/dL (6-20); Calcium 8.9 mg/dL (8.5-10.5); Carbon Dioxide 29 mmol/L (22-29); Chloride 101 mmol/L (98-107); Creatinine Clr Calc Pharmacy 163.9872; Glomerular Filtration Rate 170.2 mL/min (90-130); Glucose 293 mg/dL (65-115); Osmolality Calculated 300 mOsm/kg (285-295); Potassium 3.6 mmol/L (3.5-5.1); Sodium 139 mmol/L (136-145)
[2024-07-15 05:16] VITALS: BP 126/76
[2024-07-15 06:22] LABS: Glucose Point of Care 362 mg/dL (70-110)
[2024-07-15 07:21] VITALS: BP 116/71; PULSE 87; RESP 20; TEMP 36.7; O2SAT 97
[2024-07-15] MEDS: insulin lispro 100 unit/1 mL SUBCUT (08:54)
[2024-07-15] MEDS: clopidogrel 75 mg Tablet PO (08:55)
[2024-07-15] MEDS: metoprolol succinate ER (24 HR) 25 mg Tablet PO (08:55)
--- NOTE | 2024-07-15 11:00 | PC.NURSE ---
pt removed own iv and stated i am leaving now .stated i do not want to wait for the doctor. dr suárez notified.pt states he has plavix at home and has been taking it captain room service.instructed in the importance of taking this everyday to prevent any further occlusion to coronary arteries.pt verb understanding of instructions.pt signed the ama paperwork and left at 0920.
--- NOTE | 2024-07-15 21:07 | PM.DCS ---
Discharge Providers Date of Admission: 07/12/24 17:41 Date of Discharge: July 15, 2024 Attending Provider at Admission: Sharla Garibay MD Attending Provider at Discharge: Sharla Garibay MD Primary Care Provider: JACQUELIN Decker Diagnoses at Discharge Discharge Diagnosis (1) Chest pain: Status: Acute Reason for Visit Reason for Visit: cp x 3 weeks Hospital Course Hospital Course 59M with PMH CAD p/w 3-4 weeks of worsening chest pain not releived by prn nitro. He underwent echocardiogram which showed LVEF 40%, RWMA. His stress test was abnormal. Subsequently underwent angiogram which found in stent restsenosis for which he underwent angioplasty and stent placement. He did well with the procedure. No further chest pain. He left AMA this morning prior to being seen on rounds. He states he has Plavix and ASA at home and states he will be complaint with his medications Physical Exam Narrative: patient left AMA before being seen Discharge Data Studies Completed and Pending Completed Studies During Hospitalization Category Date Time Status XR chest 1V portable [id number] Stat Exams 07/12/24 12:30 Completed NM ger perf SPECT r/s* [id number] Routine Nuc Med 07/13/24 21:16 Completed CV. echo complete* [id number] Routine Ultrasound 07/12/24 23:12 Completed Pending at discharge Category Date Time Status [employer] CLERK request for service Routine Exams 07/14/24 10:00 Taken Cardiac Stress Test MIBI [Sestamibi Stress Test Request Exams 07/12/24 21:16 Ordered ] Routine Radiology Impressions Chest X-Ray 07/12/24 12:30 IMPRESSION: 1. No acute cardiopulmonary finding. Mild hyperinflation. Laboratory Results WBC 9.87 10^3/uL (3.29-11.43) 07/15/24 03:34 RBC 4.75 10^6/uL (3.85-5.65) 07/15/24 03:34 Hgb 14.10 g/dL (11.27-16.99) 07/15/24 03:34 Hct 40.6 % (37-53) 07/15/24 03:34 MCV 85.5 fl (82-101) 07/15/24 03:34 MCH 29.7 pg (27-33) 07/15/24 03:34 MCHC 34.7 g/dL (30-55) 07/15/24 03:34 RDW 11.8 % (12.1-15.1) L 07/15/24 03:34 Plt Count 221 10^3/cmm (157-399) 07/15/24 03:34 MPV 12.0 fL (7.4-10.4) H 07/15/24 03:34 Neut % (Auto) 55.9 % 07/15/24 03:34 Lymph % (Auto) 29.1 % 07/15/24 03:34 Griggs % (Auto) 8.9 % 07/15/24 03:34 Eos % (Auto) 5.3 % 07/15/24 03:34 Baso % (Auto) 0.4 % 07/15/24 03:34 Neut # (Auto) 5.52 10^3/uL (1.8-7.7) 07/15/24 03:34 Lymph # (Auto) 2.9 10^3/uL (0.8-4.8) 07/15/24 03:34 Griggs # (Auto) 0.9 10^3/uL (0.2-0.9) 07/15/24 03:34 Eos # (Auto) 0.5 10^3/uL (0.0-0.8) 07/15/24 03:34 Baso # (Auto) 0.0 10^3/uL (0.0-0.1) 07/15/24 03:34 Nucleated RBC % (auto) 0 % 07/15/24 03:34 Nucleated RBCs # 0.0 /100WBC 07/15/24 03:34 D-Dimer 0.33 ug/mLFEU (0-0.59) 07/12/24 12:45 Sodium 139 mmol/L (136-145) 07/15/24 03:34 Potassium 3.6 mmol/L (3.5-5.1) 07/15/24 03:34 Chloride 101 mmol/L (98-107) 07/15/24 03:34 Carbon Dioxide 29 mmol/L (22-29) 07/15/24 03:34 Anion Gap 12.6 (5-19) 07/15/24 03:34 BUN 16 mg/dL (6-20) 07/15/24 03:34 Creatinine 0.5 mg/dL (0.7-1.2) L 07/15/24 03:34 GFR Calculation 170.2 mL/min (90-130) H 07/15/24 03:34 Glucose 293 mg/dL (65-115) H 07/15/24 03:34 POC Glucose 362 mg/dL (70-110) H 07/15/24 06:17 Calculated Osmolality 300 mOsm/kg (285-295) H 07/15/24 03:34 Calcium 8.9 mg/dL (8.5-10.5) 07/15/24 03:34 Total Bilirubin 0.6 mg/dL (0.15-1.2) 07/13/24 03:29 AST 10 U/L (0-40) 07/13/24 03:29 ALT 16 U/L (0-41) 07/13/24 03:29 Alkaline Phosphatase 98 U/L (40-130) 07/13/24 03:29 Troponin T Baseline 13 ng/L (0-15) 07/12/24 12:45 Troponin T 120 Minute 12.99 ng/L (0-15) 07/12/24 14:31 Delta Troponin T -0.01 ABS# (0-10) L 07/12/24 14:31 Troponin T Hi Sens 6Hr 15.15 ng/L (0-15) H 07/12/24 20:01 Troponin T Hi Sens 6Hr Delta 2.15 ng/L (0-12) 07/12/24 20:01 Total Protein 5.9 g/dL (6.6-8.7) L 07/13/24 03:29 Albumin 3.4 g/dL (3.5-5.2) L 07/13/24 03:29 Globulin 2.5 g/dL (1.3-4.6) 07/13/24 03:29 Vitals Last Vital Signs Temp 98.0 F 07/15/24 07:21 Pulse 87 07/15/24 07:21 Resp 20 H 07/15/24 07:21 BP 116/71 07/15/24 07:21 Pulse Ox 97 07/15/24 07:21 O2 Del Method Room Air 07/15/24 07:21 Discharge Plan Discharge Patient Disposition: Left Against Medical Advice Condition: Stable Prescriptions: Continued clopidogrel 75 mg tablet 75 mg PO BEDTIME Qty: 30 2RF simvastatin 80 mg tablet 80 mg PO BEDTIME Qty: 30 2RF aspirin [Adult Low Dose Aspirin] 81 mg tablet,delayed release (DR/EC) 81 mg PO BEDTIME Qty: 30 0RF No Action (DME) blood-glucose meter Misc See Rx Instructions .Route Qty: 1 0RF Rx Instructions: As directed (DME) lancets [BD Ultra Fine Lancets] 33 gauge misc See Rx Instructions .Route Qty: 100 3RF Rx Instructions: once daily (DME) Blood Glucose Test Strip See Rx Instructions .Route Qty: 100 3RF Rx Instructions: once daily (DME) pen needle, diabetic [Easy Comfort Pen [place]] 31 gauge x 3/16 needle See Rx Instructions .Route Qty: 100 3RF Rx Instructions: As directed omeprazole 20 mg capsule,delayed release(DR/EC) 20 mg PO BEDTIME Qty: 30 2RF (DME) hinged knee brace, right See Rx Instructions .Route .MEDSUPPLY Qty: 1 0RF Rx Instructions: As directed metoprolol succinate 25 mg tablet extended release 24 hr 25 mg PO DAILY Qty: 30 0RF metformin 500 mg tablet extended release 24 hr 500 mg PO DAILY Qty: 30 2RF Mounjaro 2.5 mg/0.5 mL pen injector 2.5 mg SUBCUT .week Qty: 2 0RF Rx Instructions: plan increase 4 week sodium chloride 1,000 mg tablet,soluble 1,000 mg PO DAILY Qty: 30 2RF (DME) nebulizer accessories Kit See Rx Instructions .Route Qty: 1 0RF Rx Instructions: As directed albuterol sulfate 2.5 mg /3 mL (0.083 %) solution for nebulization 2.5 mg inhalation QID PRN (Reason: shortness of breath or wheezing) Qty: 75 5RF (DME) compressor, for nebulizer Device See Rx Instructions .Route Qty: 1 0RF Rx Instructions: As directed nitroglycerin [Nitrostat] 0.4 mg Tablet, Sublingual 0.4 mg SUBLINGUAL Q5M PRN (Reason: Chest Pain) Rx Instructions: do not exceed 3 doses per episode levothyroxine 50 mcg tablet 50 mcg PO BEDTIME Referrals: Marychuy Elizabeth, RECORD SEARCHER-C [Primary Care Provider] - Yves,Avis, RECORD SEARCHER [Nurse Practitioner] - 7-10 days Patient Instructions: How to Stop Smoking (DC), Cigarette Smoking and Your Health (GEN), Coronary Angioplasty (DC), Opioid Safety, Post Angiogram Home Care Instructions Discharge Attestations Time Spent in Discharge Care*: less than 30 min Quality Metrics Clinical Quality Measures [ No reported AMI, CVA or VTE this stay] Coding Level of Care Code Acute Code for Chg Fwd Diagnoses Chest pain R07.9
== END 2024-07-15 11:09 | disposition left against medical advice (07) ==
LOC: ER 16:04 → ER IP 17:42 → CSU 07-13 12:44
PROVIDERS: Internal Medicine; Internal Medicine Cardiovascular Disease; Admitting Provider Student in an Organized Health Care Education/Training Program; Emergency Provider Family Medicine; PCP Nurse Practitioner; Visit Provider Student in an Organized Health Care Education/Training Program
DX: R07.9 Chest pain, unspecified (principal); I25.10 Atherosclerotic heart disease of native coronary artery without angina pectoris; Z53.29 Procedure and treatment not carried out because of patient's decision for other reasons; I25.2 Old myocardial infarction; Z95.5 Presence of coronary angioplasty implant and graft; Z79.82 Long term (current) use of aspirin; E03.9 Hypothyroidism, unspecified; I10 Essential (primary) hypertension; E78.5 Hyperlipidemia, unspecified; E11.65 Type 2 diabetes mellitus with hyperglycemia; Z79.84 Long term (current) use of oral hypoglycemic drugs
CPT/HCPCS: 36415; 36416; 71045; 78452; 80048; 80053; 82962; 84484; 85025; 85347; 85378; 92978; 93005; 93017; 93306; 93454; 96372; 96374; 96375; 96376; 99152; 99153; 99285; A9500; C1725; C1753; C1769; C1874; C1887; C1894; C9600; G0378; J1200; J1644; J1650; J1815; J2250; J2785; J3010; J3490; J7030; Q9967

== ENCOUNTER → 2024-07-20 15:22 | Outpatient (BNVA) | payer MEDICARE, MEDICAID, SELFPAY | PROVIDERS: PCP Nurse Practitioner; Visit Provider Nurse Practitioner | DX: E03.9 Hypothyroidism, unspecified (principal) | CPT/HCPCS: 80048; 84443 ==

== ENCOUNTER → 2024-09-14 07:50 | Outpatient (BNVA) | payer MEDICARE, MEDICAID, SELFPAY | PROVIDERS: PCP Nurse Practitioner; Visit Provider Nurse Practitioner | DX: E11.9 Type 2 diabetes mellitus without complications (principal) | CPT/HCPCS: 80053; 83036 ==

== ENCOUNTER → 2024-10-05 10:33 | Outpatient (BNVA) | payer MEDICARE, MEDICAID, SELFPAY | PROVIDERS: PCP Nurse Practitioner; Visit Provider Nurse Practitioner | DX: R25.2 Cramp and spasm (principal); F41.9 Anxiety disorder, unspecified; F32.9 Major depressive disorder, single episode, unspecified | CPT/HCPCS: 80053; 82607; 83735 ==

== ENCOUNTER 2024-10-26 14:30 | Outpatient (CLI) | payer MEDICARE, MEDICAID, SELFPAY ==
--- NOTE | 2024-10-26 15:00 | CTR_ITS ---
PROCEDURE INFORMATION: Exam: CT Chest Without Contrast; Diagnostic Exam date and time: 10/26/2024 3:32 PM Age: 59 years old Clinical indication: Condition or disease; Lung condition and disease; Copd; With exacerbation; Shortness of breath since 1990 getting worse; Additional info: J44.9 - chronic obstructive pulmonary disease, unspecified TECHNIQUE: Imaging protocol: Diagnostic computed tomography of the chest without contrast. Radiation optimization: All CT scans at this facility use at least one of these dose optimization techniques: automated exposure control; mA and/or kV adjustment per patient size (includes targeted exams where dose is matched to clinical indication); or iterative reconstruction. COMPARISON: CR XR chest 1V portable [id number] 07/12/2024 12:37 PM RADIATION DOSE METRICS: Total DLP (mGy-cm): 655.12 FINDINGS: Lungs: Minor curvilinear scarring in the right middle lobe. No consolidation. No masses. Pleural spaces: Unremarkable. No pneumothorax. No pleural effusion. Heart: Coronary artery stent noted. No cardiomegaly. No pericardial effusion. Lymph nodes: Unremarkable. No enlarged lymph nodes. Vasculature: Unremarkable. No aortic aneurysm. Bones/joints: Unremarkable. No acute fracture. Soft tissues: Unremarkable. CT/CT chest [facility] [id number] IMPRESSION: No acute findings.
--- NOTE | 2024-10-26 15:30 | CTR_ITS ---
PROCEDURE INFORMATION: Exam: CT Abdomen And Pelvis With Contrast Exam date and time: 10/26/2024 3:32 PM Age: 59 years old Clinical indication: Abdominal pain; Acute; Difficulty urinating x 3 weeks, history of kidney stones; Additional info: J44.9 - chronic obstructive pulmonary disease, unspecified TECHNIQUE: Imaging protocol: Computed tomography of the abdomen and pelvis with contrast. Radiation optimization: All CT scans at this facility use at least one of these dose optimization techniques: automated exposure control; mA and/or kV adjustment per patient size (includes targeted exams where dose is matched to clinical indication); or iterative reconstruction. Contrast material: OMNIPAQUE 350; Contrast volume: 100 ml; Contrast route: INTRAVENOUS (IV); Other contrast: Oral, OMNIPAQUE 350, 50; COMPARISON: CT kidney stone [id number] 04/28/2018 3:54 PM RADIATION DOSE METRICS: Total DLP (mGy-cm): 655.12 FINDINGS: Liver: Normal. No mass. Gallbladder and biliary ducts: Normal. No calcified stones. No ductal dilation. Pancreas: Normal. No ductal dilation. Spleen: Normal. No splenomegaly. Adrenal glands: Normal. No mass. Kidneys and ureters: A few subcentimeter cysts noted in both kidneys. No hydronephrosis. Stomach and bowel: Unremarkable. No obstruction. No mucosal thickening. Appendix: No evidence of appendicitis. Intraperitoneal space: Unremarkable. No free air. No significant fluid collection. Vasculature: Unremarkable. No abdominal aortic aneurysm. Lymph nodes: Unremarkable. No enlarged lymph nodes. Urinary bladder: Unremarkable as visualized. Reproductive: Unremarkable as visualized. Bones/joints: No acute fracture. Soft tissues: Unremarkable. CT/CT abdomen pelvis w con* [id number] IMPRESSION: No acute findings. COMMENTS: Consistent with the [employer]'s Incidental Findings Committee white paper (J Am Brenda Radiol 2018): Any incidental renal lesion less than 1 cm or classified as too small to characterize, or any incidental cystic renal lesion characterized as simple-appearing, is likely benign. No follow-up imaging is recommended for these lesions per consensus recommendations based on imaging criteria.
[2024-10-26] MEDS: iohexol 350 mg/mL 500 mL Btl (per mL) PO (15:38)
[2024-10-26] MEDS: iohexol 350 mg/mL 500 mL Btl (per mL) IV (15:39)
== END 2024-10-26 14:31 | disposition home or self-care (01) ==
LOC: RAD 14:32
PROVIDERS: PCP Nurse Practitioner; Visit Provider Nurse Practitioner
DX: J44.9 Chronic obstructive pulmonary disease, unspecified (principal); R63.4 Abnormal weight loss; N28.1 Cyst of kidney, acquired; J98.4 Other disorders of lung
CPT/HCPCS: 71250; 74177

== ENCOUNTER → 2024-12-07 07:59 | Outpatient (BNVA) | payer MEDICARE, MEDICAID, SELFPAY | PROVIDERS: PCP Nurse Practitioner; Visit Provider Nurse Practitioner | DX: E11.9 Type 2 diabetes mellitus without complications (principal) | CPT/HCPCS: 80053; 80061; 83036; 84443; 85025 ==

== ENCOUNTER → 2025-01-12 09:24 | Outpatient (BNVA) | payer MEDICARE, MEDICAID, SELFPAY | PROVIDERS: PCP Nurse Practitioner; Visit Provider Specialist | DX: M17.11 Unilateral primary osteoarthritis, right knee (principal) | CPT/HCPCS: 20610; 73560; 73565; 99215; J1100; J2795; J3301; J9999 ==

== ENCOUNTER → 2025-03-02 08:51 | Outpatient (BNVA) | payer MEDICARE, MEDICAID, SELFPAY | PROVIDERS: PCP Nurse Practitioner; Visit Provider Nurse Practitioner | DX: Z12.5 Encounter for screening for malignant neoplasm of prostate (principal); E55.9 Vitamin D deficiency, unspecified; E11.65 Type 2 diabetes mellitus with hyperglycemia | CPT/HCPCS: 80053; 82306; 83036; G0103 ==